=== PATIENT | female | born 1975 | race Hispanic/Latino ===

== ENCOUNTER 2018-03-13 20:23 | Emergency (ER) | payer BC ==
--- NOTE | 2018-03-13 23:13 | EDPHYS ---
Physician Documentation [facility] Name: Michelle Munguia Age: 42 yrs Sex: Female : 1975 Arrival Date: 03/13/2018 Time: 20:24 Bed 13 Private MD: Sanya Little ED Physician Gregory Oh HPI: 03/13 20:40 This 42 yrs old Female presents to ER via Ambulatory with complaints of Right pm1 Hand Pain. 20:40 The patient or guardian reports pain, swelling. The complaints affect the right hand. pm1 Context: The problem was sustained at home, resulted from a direct blow, Wall. Onset: The symptoms/episode began/occurred 2 day(s) ago. Modifying factors: The symptoms are alleviated by nothing, the symptoms are aggravated by movement. Associated signs and symptoms: Pertinent negatives: fever, numbness distally, tingling distally. Severity of symptoms: in the emergency department the symptoms are actually worse. The patient has not experienced similar symptoms in the past. Patient was in a [place] putting her shirt on for work. When she quickly put her shirt on with the right arm she accidentally slapped the wall with the back of her right hand. 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 - Social history:: Smoking status: Patient/guardian denies using tobacco. - Ebola Screening: : No symptoms or risks identified at this time. ROS: 20:40 Constitutional: Negative for fever, chills, and weight loss, Eyes: Negative for injury, pm1 pain, redness, and discharge, ENT: Negative for injury, pain, and discharge, Neck: Negative for injury, pain, and swelling, Cardiovascular: Negative for chest pain, palpitations, and edema, Respiratory: Negative for shortness of breath, cough, wheezing, and pleuritic chest pain, Abdomen/GI: Negative for abdominal pain, nausea, vomiting, diarrhea, and constipation, Back: Negative for injury and pain, : Negative for injury, bleeding, discharge, and swelling. 20:40 Skin: Negative for injury, rash, and discoloration, Neuro: Negative for headache, weakness, numbness, tingling, and seizure. 20:40 MS/extremity: Positive for tenderness, of the dorsum of right hand, Negative for decreased range of motion, deformity. Exam: 20:40 Constitutional: This is a well developed, well nourished patient who is awake, alert, pm1 and in no acute distress. Head/Face: Normocephalic, atraumatic. Chest/axilla: Normal chest wall appearance and motion. Nontender with no deformity. No lesions are appreciated. Cardiovascular: Regular rate and rhythm with a normal S1 and S2. No gallops, murmurs, or rubs. Normal PMI, no JVD. No pulse deficits. Respiratory: Lungs have equal breath sounds bilaterally, clear to auscultation and percussion. No rales, rhonchi or wheezes noted. No increased work of breathing, no retractions or nasal flaring. Back: No spinal tenderness. No costovertebral tenderness. Full range of motion. Skin: Warm, dry with normal turgor. Normal color with no rashes, no lesions, and no evidence of cellulitis. 20:40 Musculoskeletal/extremity: Extremities: grossly normal except: noted in the dorsum of right hand: tenderness, ROM: intact in all extremities, Circulation is intact in all extremities. Sensation intact. symmetrical bumps on right and left hand. Possible ganglion cyst contusion on right hand. 20:40 Neuro: Orientation: is normal, Motor: is normal, moves all fours. Vital Signs: 20:33 BP 126 / 89; Pulse 79; Resp 20; Temp 98.5; Pulse Ox 99% on R/A; Weight 58.97 kg; Height aj 5 ft. 4 in. (162.56 cm); 21:55 BP 125 / 93; Pulse 70; Resp 18; Pulse Ox 99% on R/A; Pain 7/10; ea 22:30 BP 126 / 80; Pulse 72; Resp 18; Pulse Ox 98% on R/A; Pain 7/10; ea 23:45 BP 130 / 78; Pulse 70; Resp 18; Temp 97.2(O); Pulse Ox 99% ; ea 20:33 Body Mass Index 22.31 (58.97 kg, 162.56 cm) juventino MDM: 20:40 Patient medically screened. pm1 23:11 Data reviewed: vital signs. Data interpreted: Pulse oximetry: on room air is 99 %. pm1 Interpretation: normal. Counseling: I had a detailed discussion with the patient and/or guardian regarding: the historical points, exam findings, and any diagnostic results supporting the discharge/admit diagnosis, radiology results, to return to the emergency department if symptoms worsen or persist or if there are any questions or concerns that arise at home. 03/13 20:40 Order name: Hand Right 3 View XRAY; Complete Time: 15:14 pm1 Administered Medications: 23:41 Drug: traMADol 50 mg Route: PO; ea 23:56 Follow up: Response: No adverse reaction; Pain is decreased ea Disposition: 03/14 06:05 Co-signature as Attending Physician, Gregory Oh MD I agree with the assessment and tw4 plan of care. Disposition: 03/13/18 23:13 Discharged to Home. Impression: Contusion of right hand, Ganglion, right hand - possible. - Condition is Stable. - Discharge Instructions: Hand Contusion, Ganglion Cyst. - Prescriptions for Tramadol 50 mg Oral Tablet - take 1 tablet by ORAL route every 8 hours as needed; 12 tablet. - Medication Reconciliation Form, Thank You Letter, Prescription Opioid Use, Work release form form. - Follow up: Emergency Department; When: As needed; Reason: Worsening of condition. Follow up: Private Physician; When: 2 - 3 days; Reason: Recheck today's complaints, Continuance of care, Re-evaluation by your physician. - Problem is new. - Symptoms have improved. - Notes: Take ibuprofen or tylenol as needed for pain Signatures: Dispatcher [employer] EDMS Orly Ramirez RN RN aj Marinas, Patrick, NP SOUND ENGINEERING TECHNICIAN pm1 Carisa Cunha RN RN ea Wadley, Terrence, MD MD tw4 Corrections: (The following items were deleted from the chart) 03/13 23:13 23:13 03/13/2018 23:13 Discharged to Home. Impression: Contusion of right hand; pm1 Ganglion, right hand. Condition is Stable. Forms are Medication Reconciliation Form, Thank You Letter, Antibiotic Education, Prescription Opioid Use. Follow up: Emergency Department; When: As needed; Reason: Worsening of condition. Follow up: Private Physician; When: 2 - 3 days; Reason: Recheck today's complaints, Continuance of care, Re-evaluation by your physician. Problem is new. Symptoms have improved. pm1 / 00:14 03/13 23:13 03/13/2018 23:13 Discharged to Home. Impression: Contusion of right hand; ea Ganglion, right hand - possible. Condition is Stable. Forms are Medication Reconciliation Form, Thank You Letter, Antibiotic Education, Prescription Opioid Use. Follow up: Emergency Department; When: As needed; Reason: Worsening of condition. Follow up: Private Physician; When: 2 - 3 days; Reason: Recheck today's complaints, Continuance of care, Re-evaluation by your physician. Problem is new. Symptoms have improved. pm1
--- NOTE | 2018-03-13 23:13 | ER ---
Nurse's Notes [facility] Name: Michelle Munguia Age: 42 yrs Sex: Female : 1975 Arrival Date: 03/13/2018 Time: 20:24 Bed 13 Private MD: Sanya Little Diagnosis: Contusion of right hand;Ganglion, right hand-possible Presentation: 03/13 20:32 Presenting complaint: Patient states: Right hand pain since "banging it" on a wall last aj night. No swelling or bruising noted to hand at this time. Transition of care: patient was not received from another setting of care. Onset of symptoms was March 13, 2018. Risk Assessment: Do you want to hurt yourself or someone else? Patient reports no desire to harm self or others. Care prior to arrival: None. 20:32 Method Of Arrival: Ambulatory aj 20:32 Acuity: XAVIER 4 aj 20:40 Initial Sepsis Screen: Does the patient meet any 2 criteria? No. Patient's initial ea sepsis screen is negative. Does the patient have a suspected source of infection? No. Patient's initial sepsis screen is negative. Triage Assessment: 20:33 General: Appears in no apparent distress. comfortable, Behavior is calm, cooperative, aj appropriate for age. Pain: Complains of pain in right hand. Neuro: Level of Consciousness is awake, alert, obeys commands, Oriented to person, place, time, situation, Appropriate for age. Respiratory: Airway is patent Respiratory effort is even, unlabored, Respiratory pattern is regular, symmetrical. Derm: Skin is intact, is healthy with good turgor, Skin is pink, warm \\T\\ dry. normal. Musculoskeletal: Reports pain in right hand. 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 - Social history:: Smoking status: Patient/guardian denies using tobacco. - Ebola Screening: : No symptoms or risks identified at this time. Screenin:53 Abuse screen: Denies threats or abuse. Nutritional screening: No deficits noted. ea Tuberculosis screening: No symptoms or risk factors identified. Fall Risk None identified. Assessment: 20:40 General: Appears uncomfortable, Behavior is calm, cooperative, appropriate for age. ea Pain: Complains of pain in right hand Pain currently is 7 out of 10 on a pain scale. Quality of pain is described as aching. Neuro: Level of Consciousness is awake, alert, obeys commands, Oriented to person, place, time, situation. Cardiovascular: Patient's skin is warm and dry. Respiratory: Airway is patent Respiratory effort is even, unlabored, Respiratory pattern is regular, symmetrical. GI: No signs and/or symptoms were reported involving the gastrointestinal system. : No signs and/or symptoms were reported regarding the genitourinary system. EENT: No signs and/or symptoms were reported regarding the EENT system. Derm: Skin is pink, warm \\T\\ dry. Musculoskeletal: Swelling present in dorsal aspect of proximal phalanx of right thumb and Right first web space. 21:50 Reassessment: Patient and/or family updated on plan of care and expected duration. Pain ea level reassessed. Patient is alert, oriented x 3, equal unlabored respirations, skin warm/dry/pink. 22:41 Reassessment: Patient and/or family updated on plan of care and expected duration. Pain ea level reassessed. Patient is alert, oriented x 3, equal unlabored respirations, skin warm/dry/pink. 23:42 Reassessment: Patient and/or family updated on plan of care and expected duration. Pain ea level reassessed. Patient is alert, oriented x 3, equal unlabored respirations, skin warm/dry/pink. c/o pain, provider notified, order obtained, medication administered, pt tolerated well. 03/14 00:03 Reassessment: Patient and/or family updated on plan of care and expected duration. Pain ea level reassessed. Patient is alert, oriented x 3, equal unlabored respirations, skin warm/dry/pink. Patient states symptoms have improved. Vital Signs: 03/13 20:33 BP 126 / 89; Pulse 79; Resp 20; Temp 98.5; Pulse Ox 99% on R/A; Weight 58.97 kg; Height aj 5 ft. 4 in. (162.56 cm); 21:55 BP 125 / 93; Pulse 70; Resp 18; Pulse Ox 99% on R/A; Pain 7/10; ea 22:30 BP 126 / 80; Pulse 72; Resp 18; Pulse Ox 98% on R/A; Pain 7/10; ea 23:45 BP 130 / 78; Pulse 70; Resp 18; Temp 97.2(O); Pulse Ox 99% ; ea 20:33 Body Mass Index 22.31 (58.97 kg, 162.56 cm) ED Course: 20:24 Patient arrived in ED. ds1 20:28 Sanya Little MD is Private Physician. ds1 20:33 Triage completed. aj 20:33 Arm band placed on right wrist. Patient placed in an exam room. aj 20:36 Ishmael Mueller NP is PHCP. pm1 20:36 Gregory Oh MD is Attending Physician. pm1 20:40 Patient has correct armband on for positive identification. Bed in low position. Call ea light in reach. Side rails up X2. 20:44 Edith Hedrick RN is Primary Nurse. rk2 21:08 X-ray completed. Portable x-ray completed in exam room. Patient tolerated procedure bb2 well. 21:09 Hand Right 3 View XRAY In Process Unspecified. EDMS 21:18 Carisa Cunha RN is Primary Nurse. ea 23:43 No provider procedures requiring assistance completed. Patient did not have IV access ea during this emergency room visit. Administered Medications: 23:41 Drug: traMADol 50 mg Route: PO; ea 23:56 Follow up: Response: No adverse reaction; Pain is decreased ea Outcome: 23:13 Discharge ordered by MD. pm1 23:57 Condition: improved ea 23:57 Discharge instructions given to patient, Instructed on discharge instructions, follow up and referral plans. 23:57 Demonstrated understanding of instructions, follow-up care. 03/14 00:14 Patient left the ED. ea Signatures: Dispatcher [employer] EDMS Orly Ramirez, Summer Davis RN ds1 Ishmael Mueller NP AUTOMATION SPECIALIST pm1 Carisa Cunha RN RN ea Bock, Brittany bb2 Edith Hedrick RN RN rk2
[2018-03-13] MEDS ORDERED: TRAMADOL HCL 50 MG TAB ONE (23:40)
[2018-03-14 00:31] VITALS: BP 130/78; TEMP 97.2; O2SAT 99
--- NOTE | 2018-03-14 08:10 | RAD REPORT ---
EXAM DESCRIPTION: RAD - Hand Right 3 View - 03/13/2018 9:09 pm CLINICAL HISTORY: Blunt force trauma right hand, right hand pain COMPARISON: January 2015 exam FINDINGS: The with There is no dislocation or periosteal reaction noted. No foreign body or signifi cant soft tissue abnormality. No significant change from comparison IMPRESSION: Negative right hand examination.
== END 2018-03-14 00:14 | disposition home or self-care (01) ==
LOC: ER 20:23
DX: S60.221A Contusion of right hand, initial encounter (principal); W22.09XA Striking against other stationary object, initial encounter; Y93.89 Activity, other specified; Y92.009 Unspecified place in unspecified non-institutional (private) residence as the place of occurrence of the external cause; Z88.0 Allergy status to penicillin; Z88.5 Allergy status to narcotic agent; Z88.8 Allergy status to other drugs, medicaments and biological substances
CPT/HCPCS: 99283

== ENCOUNTER 2019-03-03 15:36 | Emergency (ER) | payer BC ==
--- OUTSIDE RECORDS SUMMARY | 2019-03-03 15:38 | XMS REPORT ---
:1975 Author Organization e[employer] Care Team Providers Name Role Phone Sanya Little Provider Role Unavailable Allergies No Known Allergies Problems Problem Type Condition Code Onset Dates Condition Status Assessment Left foot pain M79.672 Active Problem Seizures R56.9 Active Problem Seasonal allergies J30.2 Active Problem Anxiety F41.9 Active Problem Uncomplicated asthma, unspecified J45.909 Active asthma severity, unspecified whether persistent Problem History of calculus of gallbladder Z87.19 Active Problem History of kidney stones Z87.442 Active Problem Migraine with status migrainosus, G43.901 Active not intractable, unspecified migraine type Medications Medication Code Code Instructions Start End Date Status Dosage System Date ProAir [facility] [id number] 108 (90 Base) Active 2 puffs RespiClick MCG/ACT as needed Inhalation every 6 hrs Results No Known Results Summary Purpose eClinicalWorks Submission
--- OUTSIDE RECORDS SUMMARY | 2019-03-03 15:38 | XMS REPORT ---
:1975 Author Organization e[employer] Care Team Providers Name Role Phone Sanya Little Provider Role Unavailable Allergies, Adverse Reactions, Alerts Substance Reaction Event Type PCN hives Drug Allergy Demerol hives Drug Allergy Problems Problem Type Condition Code Onset Dates Condition Status Problem Seizures R56.9 Active Problem Seasonal allergies [...] End Date Status Dosage System Date ProAir [facility] 43665797502 108 (90 Base) Active 2 puffs RespiClick MCG/ACT as needed Inhalation every 6 hrs Results No Known Results Summary Purpose eClinicalWorks Submission
[2019-03-03] MEDS ORDERED: LIDOCAINE 1% W/EPI 1:100,000 MDV 50 ML VIAL ONE (16:08)
[2019-03-03] MEDS ORDERED: BUPIVACAINE 0.5% PF 10 ML VIAL ONE (16:08)
--- NOTE | 2019-03-03 16:14 | ER ---
Nurse's Notes [facility] Name: Michelle Munguia Age: 43 yrs Sex: Female : 1975 Arrival Date: 03/03/2019 Time: 15:41 Bed 5 Private MD: Diagnosis: Dental pain Presentation: 03/03 15:42 Presenting complaint: Patient states: "I have a hole in my tooth, a couple days ago a aj1 chip went up into the hole and I know it hit a nerve, and I've been having pain. It hurts so bad the pain just shoots all the way to the back of my neck". Transition of care: patient was not received from another setting of care. Onset of symptoms was March 03, 2019. Risk Assessment: Do you want to hurt yourself or someone else? Patient reports no desire to harm self or others. Initial Sepsis Screen: Does the patient meet any 2 criteria? Yes Does the patient have a suspected source of infection? No. Patient's initial sepsis screen is negative. Care prior to arrival: None. 15:42 Method Of Arrival: Ambulatory aj1 15:42 Acuity: XAVIER 4 aj1 Triage Assessment: 15:44 General: Appears in no apparent distress. uncomfortable, Behavior is calm, cooperative, aj1 appropriate for age. Pain: Complains of pain in right jaw Pain radiates to right ear and neck. EENT: Reports pain in mouth. Neuro: Level of Consciousness is awake, alert, obeys commands, Oriented to person, place, time, situation. Cardiovascular: Patient's skin is warm and dry. Respiratory: Airway is patent Respiratory effort is even, unlabored, Respiratory pattern is regular, symmetrical. 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 - Social history:: Smoking status: Patient/guardian denies using tobacco. - Ebola Screening: : Patient denies travel to an Ebola-affected area in the 21 days before illness onset. Screenin:47 Abuse screen: Denies threats or abuse. Nutritional screening: No deficits noted. tw2 Tuberculosis screening: No symptoms or risk factors identified. Fall Risk None identified. Assessment: 15:47 General: Appears in no apparent distress. Behavior is calm, cooperative, appropriate tw2 for age. Pain: Complains of pain in right jaw. Neuro: Level of Consciousness is awake, alert, obeys commands, Oriented to person, place, time, situation. Cardiovascular: Patient's skin is warm and dry. Respiratory: Airway is patent Respiratory effort is even, unlabored, Respiratory pattern is regular, symmetrical. GI: No signs and/or symptoms were reported involving the gastrointestinal system. : No signs and/or symptoms were reported regarding the genitourinary system. EENT: No signs and/or symptoms were reported regarding the EENT system. Derm: No signs and/or symptoms reported regarding the dermatologic system. Musculoskeletal: Range of motion: intact in all extremities. Vital Signs: 15:44 BP 125 / 93; Pulse 74; Resp 18; Temp 98.2(TE); Pulse Ox 100% on R/A; Height 5 ft. 4 in. aj1 (162.56 cm) (R); Pain 10/10; ED Course: 15:41 Patient arrived in ED. mr 15:41 Arben Swain MD is Attending Physician. ps1 15:43 Triage completed. aj1 15:46 Isabelle Minor, JABIER is Primary Nurse. tw2 15:46 Arm band placed on. tw2 15:47 Bed in low position. Call light in reach. tw2 16:18 No provider procedures requiring assistance completed. Patient did not have IV access sg during this emergency room visit. Administered Medications: 16:15 Drug: Lidocaine-Epinephrine -1%: (1:100,000) 20 ml {Note: via Dr. Swain.} Volume: 20 tw2 ml; Route: Infiltration; 16:16 Drug: Bupivacaine (0.5 %) 10 ml {Note: via Dr. Swain.} Volume: 10 ml; Route: tw2 Infiltration; Outcome: 16:13 Discharge ordered by . ps1 16:18 Discharged to home ambulatory. sg 16:18 Condition: good 16:18 Discharge instructions given to patient, Instructed on discharge instructions, follow up and referral plans. medication usage, safety practices, Demonstrated understanding of instructions, follow-up care, medications, Prescriptions given X 4. 16:23 Patient left the ED. sg Signatures: Danay Tello RN RN aj1 Rajat Bear RN RN sg Jessica Olivas mr Iván, JABIER Walton RN tw2 Arben Swain MD MD ps1
--- NOTE | 2019-03-03 16:14 | EDPHYS ---
Physician Documentation [facility] Name: Michelle Munguia Age: 43 yrs Sex: Female : 1975 Arrival Date: 03/03/2019 Time: 15:41 Bed 5 Private MD: ED Physician Arben Swain HPI: 03/03 16:08 This 43 yrs old Female presents to ER via Ambulatory with complaints of ps1 Toothache. 16:08 The patient presents with pain. The problem is located in the upper right second ps1 bicuspid, upper right first bicuspid and upper right cuspid. patient states that she may have a loose filling now is in intolerable pain. Cannot get into the dentist until Saturday. No fever or abscess. . 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 - Social history:: Smoking status: Patient/guardian denies using tobacco. - Ebola Screening: : Patient denies travel to an Ebola-affected area in the 21 days before illness onset. ROS: 16:08 Constitutional: Negative for fever, chills, and weight loss, Eyes: Negative for injury, ps1 pain, redness, and discharge, Cardiovascular: Negative for chest pain, palpitations, and edema, Respiratory: Negative for shortness of breath, cough, wheezing, and pleuritic chest pain, Abdomen/GI: Negative for abdominal pain, nausea, vomiting, diarrhea, and constipation, MS/Extremity: Negative for injury and deformity, Skin: Negative for injury, rash, and discoloration, Neuro: Negative for headache, weakness, numbness, tingling, and seizure. 16:08 ENT: Positive for dental pain. Exam: 16:08 Constitutional: This is a well developed, well nourished patient who is awake, alert, ps1 and in no acute distress. Head/Face: Normocephalic, atraumatic. Eyes: Pupils equal round and reactive to light, extra-ocular motions intact. Lids and lashes normal. Conjunctiva and sclera are non-icteric and not injected. Cardiovascular: Regular rate and rhythm. No gallops, murmurs, or rubs. Normal PMI, no JVD. No pulse deficits. Respiratory: Lungs have equal breath sounds bilaterally, clear to auscultation and percussion. No rales, rhonchi or wheezes noted. No increased work of breathing, no retractions or nasal flaring. Abdomen/GI: Soft, non-tender, with normal bowel sounds. No distension or tympany. No guarding or rebound. No evidence of tenderness throughout. MS/ Extremity: Pulses equal, no cyanosis. Neurovascular intact. Full, normal range of motion. Neuro: Awake and alert, GCS 15, oriented to person, place, time, and situation. Cranial nerves II-XII grossly intact. Sensory grossly intact. 16:08 ENT: Dental exam: dental caries, pain, that is severe, specifically in the upper right cuspid and upper right first bicuspid and upper right second bicuspid. Vital Signs: 15:44 BP 125 / 93; Pulse 74; Resp 18; Temp 98.2(TE); Pulse Ox 100% on R/A; Height 5 ft. 4 in. aj1 (162.56 cm) (R); Pain 10/10; Procedures: 16:08 Nerve block: (dental) of right superior alveolar. Medication: Lidocaine 1% with ps1 epinephrine, Marcaine 0.5%, Amount: 4 mls were injected, Effect: the patient has resolution of the pain, Performed by Arben Swain MD Patient tolerated well. MDM: 16:08 Data reviewed: vital signs, nurses notes, and as a result, I will discharge patient. ps1 Counseling: I had a detailed discussion with the patient and/or guardian regarding: the historical points, exam findings, and any diagnostic results supporting the discharge/admit diagnosis, the need for outpatient follow up, a dentist. ED course: pain improved after nerve block. Home with chlorhexadine gluconate, medrol, anaprox,cavit, clindamycin. 16:13 Patient medically screened. ps1 Administered Medications: 16:15 Drug: Lidocaine-Epinephrine -1%: (1:100,000) 20 ml {Note: via Dr. Swain.} Volume: 20 tw2 ml; Route: Infiltration; 16:16 Drug: Bupivacaine (0.5 %) 10 ml {Note: via Dr. Swain.} Volume: 10 ml; Route: tw2 Infiltration; Disposition: 03/03/19 16:13 Discharged to Home. Impression: Dental pain. - Condition is Stable. - Discharge Instructions: Dental Pain. - Prescriptions for chlorhexidine gluconate 0.12 % Mucous Membrane mouthwash - place 15 milliliter by MUCOUS MEMBRANE route 2 times per day after brushing teeth, swish in mouth for 30 seconds then spit out; 1 bottle. Anaprox DS 550 mg Oral Tablet - take 1 tablet by ORAL route every 12 hours As needed; 20 tablet. Clindamycin HCl 300 mg Oral Capsule - take 1 capsule by ORAL route every 6 hours for 10 days; 40 capsule. Medrol (Siddhartha) 4 mg Oral Tablets, Dose Pack - take 1 tablet by ORAL route as directed - follow package instructions; 1 packet. - Work release form, Medication Reconciliation Form, Thank You Letter, Antibiotic Education, Prescription Opioid Use form. - Follow up: Private Physician; When: As needed; Reason: Recheck today's complaints, Continuance of care, Re-evaluation by your physician. Follow up: Emergency Department; When: As needed; Reason: Fever > 102 F, Worsening of condition. - Problem is an acute exacerbation. - Symptoms have improved. Signatures: Dnaay Tello RN RN aj1 Rajat Bear RN RN sg Isabelle Minor RN RN tw2 Arben Swain MD MD ps1 Corrections: (The following items were deleted from the chart) 16:23 16:13 03/03/2019 16:13 Discharged to Home. Impression: Dental pain. Condition is sg Stable. Forms are Work release form, Medication Reconciliation Form, Thank You Letter, Antibiotic Education, Prescription Opioid Use. Follow up: Private Physician; When: As needed; Reason: Recheck today's complaints, Continuance of care, Re-evaluation by your physician. Follow up: Emergency Department; When: As needed; Reason: Fever > 102 F, Worsening of condition. Problem is an acute exacerbation. Symptoms have improved. ps1
[2019-03-03 16:38] VITALS: BP 125/93; TEMP 98.2; O2SAT 100
== END 2019-03-03 16:23 | disposition home or self-care (01) ==
LOC: ER 15:36
DX: K08.89 Other specified disorders of teeth and supporting structures (principal); Z88.0 Allergy status to penicillin; Z88.6 Allergy status to analgesic agent; Z88.8 Allergy status to other drugs, medicaments and biological substances
CPT/HCPCS: 99283

== ENCOUNTER 2019-05-02 21:51 | Emergency (ER) | payer BC ==
--- OUTSIDE RECORDS SUMMARY | 2019-05-02 21:54 | XMS REPORT ---
[...] Dosage System Date ProAir [facility] [id number] 108 (90 Base) Active 2 puffs RespiClick MCG/ACT as needed Inhalation every 6 hrs Results No Known Results Summary Purpose eClinicalWorks Submission
--- OUTSIDE RECORDS SUMMARY | 2019-05-02 21:54 | XMS REPORT ---
[...] End Date Status Dosage System Date ProAir [facility] [id number] 108 (90 Base) Active 2 puffs RespiClick MCG/ACT as needed Inhalation every 6 hrs Results No Known Results Summary Purpose eClinicalWorks Submission
[2019-05-02] MEDS ORDERED: HYDROCODONE/APAP 7.5/325 MG TAB ONE (23:38)
[2019-05-02] MEDS ORDERED: KETOROLAC 30 MG/ML INJ ONE (23:38)
--- NOTE | 2019-05-03 00:57 | ER ---
Nurse's Notes [facility] Name: Michelle Munguia Age: 43 yrs Sex: Female : 1975 Arrival Date: 05/02/2019 Time: 21:52 Bed 24 Private MD: Diagnosis: Low back pain Presentation: 05/02 22:06 Presenting complaint: Patient states: she fell in the bathroom last night injuring her bb back she is having back pain in mid-lower back radiating to her left abdomen. Transition of care: patient was not received from another setting of care. Onset of symptoms was May 01, 2019. Risk Assessment: Do you want to hurt yourself or someone else? Patient reports no desire to harm self or others. Initial Sepsis Screen: Does the patient meet any 2 criteria? No. Patient's initial sepsis screen is negative. Does the patient have a suspected source of infection? No. Patient's initial sepsis screen is negative. Care prior to arrival: None. 22:06 Method Of Arrival: Ambulatory bb 22:06 Acuity: XAVIER 3 bb Triage Assessment: 05/03 01:10 General: Behavior is calm, cooperative. 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 - Social history:: Smoking status: Patient/guardian denies using tobacco. - Ebola Screening: : No symptoms or risks identified at this time. Screenin:12 Abuse screen: Denies threats or abuse. Denies injuries from another. Nutritional mg2 screening: No deficits noted. Tuberculosis screening: No symptoms or risk factors identified. Fall Risk None identified. Assessment: 22:11 General: Appears uncomfortable. Pain: Complains of pain in back. Neuro: Level of mg2 Consciousness is awake, alert, obeys commands, Oriented to person, place, time, situation. Cardiovascular: Capillary refill. Respiratory: Airway is patent Respiratory effort is even, unlabored, Respiratory pattern is regular, symmetrical. GI: No signs and/or symptoms were reported involving the gastrointestinal system. : No signs and/or symptoms were reported regarding the genitourinary system. EENT: No signs and/or symptoms were reported regarding the EENT system. Derm: Skin is intact, is healthy with good turgor, Skin is pink, warm \\T\\ dry. normal. Musculoskeletal: Circulation, motion, and sensation intact. Capillary refill < 3 seconds. 05/03 01:10 Reassessment: Patient states feeling better. mg2 Vital Signs: 05/02 22:08 BP 114 / 100; Pulse 96; Resp 18 S; Temp 98.3; Pulse Ox 100% on R/A; Weight 55.3 kg (R); bb Height 5 ft. 4 in. (162.56 cm) (R); Pain 10/10; 22:54 BP 127 / 88; Pulse 83; Resp 18; Temp 98; Pulse Ox 100% on R/A; mg2 05/03 00:21 BP 109 / 80; Pulse 91; Resp 18; Pulse Ox 100% on R/A; mg2 05/02 22:08 Body Mass Index 20.93 (55.30 kg, 162.56 cm) bb ED Course: 05/02 21:52 Patient arrived in ED. am2 22:08 Triage completed. bb 22:08 Arm band placed on Patient placed in an exam room, on a stretcher, on pulse oximetry. bb Family accompanied patient. 22:11 Brad Connolly, JABIER is Primary Nurse. mg2 22:12 Patient has correct armband on for positive identification. mg2 22:43 Benji Rogers PA is PHCP. jr8 22:43 Gregory Oh MD is Attending Physician. jr8 22:54 No provider procedures requiring assistance completed. Patient did not have IV access mg2 during this emergency room visit. 05/03 00:14 X-ray completed. Patient tolerated procedure well. kw 02:11 Lumbar Spine (3 Views) XRAY In Process Unspecified. EDMS Administered Medications: 05/02 23:26 Drug: TORadol - Ketorolac 15 mg Route: IM; Site: left deltoid; mg2 05/03 01:09 Follow up: Response: No adverse reaction; Marked relief of symptoms mg2 05/02 23:26 Drug: [place] (7.5 mg-325 mg) 1 tabs Route: PO; mg2 05/03 01:09 Follow up: Response: No adverse reaction; Marked relief of symptoms mg2 Outcome: 00:56 Discharge ordered by MD. stoner 01:10 Discharged to home ambulatory, with family. mg2 01:10 Condition: stable 01:10 Discharge instructions given to patient, family, Instructed on discharge instructions, follow up and referral plans. medication usage, Demonstrated understanding of instructions, follow-up care, medications, Prescriptions given X 2. 01:10 Patient left the ED. mg2 Signatures: Dispatcher [employer] EDMS Ara Arguello RN RN Rosa Etienne Josh, PA PA jr8 Orly Coronado Michele, RN RN mg2
--- NOTE | 2019-05-03 00:58 | EDPHYS ---
Physician Documentation [facility] Name: Michelle Munguia Age: 43 yrs Sex: Female : 1975 Arrival Date: 05/02/2019 Time: 21:52 Bed 24 Private MD: ED Physician Gregory Oh HPI: 05/02 23:19 This 43 yrs old Female presents to ER via Ambulatory with complaints of Back jr8 Pain. 23:19 The patient presents with pain that is acute. The symptoms are located in the low back, jr8 L1 and L2. Onset: The symptoms/episode began/occurred acutely, 24 hour(s) ago. The pain radiates to the right leg and left leg. Associated signs and symptoms: Pertinent negatives: dysuria, numbness, tingling. The problem was sustained during a fall, while walking. Modifying factors: The patient symptoms are alleviated by nothing, the patient symptoms are aggravated by any movement. Severity of symptoms: At their worst the symptoms were moderate, in the emergency department the symptoms are unchanged. The patient has not experienced similar symptoms in the past. The patient has not recently seen a physician. Reports slip/fall while getting out of shower last night 24 hours ago, lower back pain radiating down both legs. 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 - Social history:: Smoking status: Patient/guardian denies using tobacco. - Ebola Screening: : No symptoms or risks identified at this time. ROS: 23:19 Constitutional: Negative for fever, chills, and weight loss, Eyes: Negative for injury, jr8 pain, redness, and discharge, ENT: Negative for injury, pain, and discharge, Neck: Negative for injury, pain, and swelling, Cardiovascular: Negative for chest pain, palpitations, and edema, Respiratory: Negative for shortness of breath, cough, wheezing, and pleuritic chest pain, Abdomen/GI: Negative for abdominal pain, nausea, vomiting, diarrhea, and constipation, MS/Extremity: Negative for injury and deformity, Skin: Negative for injury, rash, and discoloration, Neuro: Negative for headache, weakness, numbness, tingling, and seizure. 23:19 Back: Positive for pain at rest, pain with movement, radiated pain, Negative for numbness/tingling to lower extremities or incontinence of bowel/bladder. Exam: 05/03 00:42 Head/Face: Normocephalic, atraumatic. Neck: Trachea midline, no thyromegaly or masses jr8 palpated, and no cervical lymphadenopathy. Supple, full range of motion without nuchal rigidity, or vertebral point tenderness. No Meningismus. Chest/axilla: Normal chest wall appearance and motion. Nontender with no deformity. No lesions are appreciated. Cardiovascular: Regular rate and rhythm with a normal S1 and S2. No gallops, murmurs, or rubs. Normal PMI, no JVD. No pulse deficits. Respiratory: Lungs have equal breath sounds bilaterally, clear to auscultation and percussion. No rales, rhonchi or wheezes noted. No increased work of breathing, no retractions or nasal flaring. Abdomen/GI: Soft, non-tender, with normal bowel sounds. No distension or tympany. No guarding or rebound. No evidence of tenderness throughout. Skin: Warm, dry with normal turgor. Normal color with no rashes, no lesions, and no evidence of cellulitis. MS/ Extremity: Pulses equal, no cyanosis. Neurovascular intact. Full, normal range of motion. Neuro: Awake and alert, GCS 15, oriented to person, place, time, and situation. Cranial nerves II-XII grossly intact. Motor strength 5/5 in all extremities. Sensory grossly intact. Cerebellar exam normal. Normal gait. Constitutional: The patient appears alert, awake, uncomfortable. Back: pain, that is moderate, of the lumbar area, ROM is painful, with all movement, normal spinal alignment noted, no deformity, CVA tenderness, is absent, vertebral tenderness, is appreciated at L1 and L2. Vital Signs: 05/02 22:08 BP 114 / 100; Pulse 96; Resp 18 S; Temp 98.3; Pulse Ox 100% on R/A; Weight 55.3 kg (R); bb Height 5 ft. 4 in. (162.56 cm) (R); Pain 10/10; 22:54 BP 127 / 88; Pulse 83; Resp 18; Temp 98; Pulse Ox 100% on R/A; mg2 05/03 00:21 BP 109 / 80; Pulse 91; Resp 18; Pulse Ox 100% on R/A; mg2 05/02 22:08 Body Mass Index 20.93 (55.30 kg, 162.56 cm) bb MDM: 05/02 22:59 Patient medically screened. jr8 05/03 00:56 Differential diagnosis: Fracture Osteoarthritis ruptured disc, spinal injury, sprain, jr8 vertebral fracture. Data reviewed: vital signs, nurses notes, radiologic studies, plain films. Data interpreted: Pulse oximetry: on room air is 99 %. Interpretation: normal. Counseling: I had a detailed discussion with the patient and/or guardian regarding: the historical points, exam findings, and any diagnostic results supporting the discharge/admit diagnosis, radiology results, to return to the emergency department if symptoms worsen or persist or if there are any questions or concerns that arise at home. Response to treatment: the patient's symptoms have markedly improved after treatment, and as a result, I will discharge patient. ED course: Xrays grossly negative, discharged with medications. 05/02 23:19 Order name: Lumbar Spine (3 Views) XRAY jr8 Administered Medications: 05/02 23:26 Drug: TORadol - Ketorolac 15 mg Route: IM; Site: left deltoid; mg2 05/03 01:09 Follow up: Response: No adverse reaction; Marked relief of symptoms mg2 05/02 23:26 Drug: [place] (7.5 mg-325 mg) 1 tabs Route: PO; mg2 05/03 01:09 Follow up: Response: No adverse reaction; Marked relief of symptoms mg2 Disposition: 06:39 Co-signature as Attending Physician, Gregory Oh MD I agree with the assessment and tw4 plan of care. Disposition: 05/03/19 00:56 Discharged to Home. Impression: Low back pain. - Condition is Stable. - Discharge Instructions: Back Pain, Adult, Musculoskeletal Pain. - Prescriptions for Ibuprofen 800 mg Oral Tablet - take 1 tablet by ORAL route every 12 hours As needed take with food; 20 tablet. Robaxin 500 mg Oral Tablet - take 2 tablet by ORAL route every 6 hours As needed; 40 tablet. - Medication Reconciliation Form, Thank You Letter, Antibiotic Education, Prescription Opioid Use, Work release form form. - Follow up: Private Physician; When: 2 - 3 days; Reason: Recheck today's complaints, Continuance of care, Re-evaluation by your physician. - Problem is new. - Symptoms have improved. Signatures: Dispatcher [employer] EDAra Marquez, RN RN Benji Hernandez PA PA jr8 Gregory Oh MD MD tw4 Brad Connolly RN RN mg2 Corrections: (The following items were deleted from the chart) 01:10 00:56 05/03/2019 00:56 Discharged to Home. Impression: Low back pain. Condition is mg2 Stable. Forms are Medication Reconciliation Form, Thank You Letter, Antibiotic Education, Prescription Opioid Use. Follow up: Private Physician; When: 2 - 3 days; Reason: Recheck today's complaints, Continuance of care, Re-evaluation by your physician. Problem is new. Symptoms have improved. jr8
[2019-05-03 02:39] VITALS: O2SAT 100
[2019-05-03 02:41] VITALS: TEMP 98
[2019-05-03 02:42] VITALS: BP 109/80
--- NOTE | 2019-05-03 12:49 | RAD REPORT ---
EXAM DESCRIPTION: RAD - Lumbar Spine 3 Views - 05/03/2019 12:15 am CLINICAL HISTORY: LOWER BACK PAIN Radiculopathy COMPARISON: Lumbar Spine 3 Views dated 02/04/2016; LUMBAR SPINE 3 VIEWS dated 10/15/2011 FINDINGS: Vertebral body heights appear maintained. No compression fracture noted. Disc spaces are m aintained. No spondylolysis or spondylolisthesis. IMPRESSION: Negative study.
== END 2019-05-03 01:10 | disposition home or self-care (01) ==
LOC: ER 21:51
DX: M54.5 Low back pain (principal); J45.909 Unspecified asthma, uncomplicated; Z88.5 Allergy status to narcotic agent; Z88.0 Allergy status to penicillin; Z88.8 Allergy status to other drugs, medicaments and biological substances
CPT/HCPCS: 72100; 96372; 99284

== ENCOUNTER 2019-06-21 17:48 | Emergency (ER) | payer BC ==
--- OUTSIDE RECORDS SUMMARY | 2019-06-21 17:51 | XMS REPORT ---
[...] End Date Status Dosage System Date ProAir [facility] [id number] 108 (90 Base) Active 2 puffs RespiClick MCG/ACT as needed Inhalation every 6 hrs Results No Known Results Summary Purpose eClinicalWorks Submission
--- OUTSIDE RECORDS SUMMARY | 2019-06-21 17:51 | XMS REPORT ---
[...] End Date Status Dosage System Date ProAir [facility] [id number] 108 (90 Base) Active 2 puffs RespiClick MCG/ACT as needed Inhalation every 6 hrs Results No Known Results Summary Purpose eClinicalWorks Submission
[2019-06-21 20:17] LABS: Urine Blood 2+ (NEG); Urine Glucose NEGATIVE (NEG); Urine Protein NEGATIVE (NEG)
[2019-06-21 20:55] LABS: Urine Bacteria >50 /HPF (<20); Urine Culture Reflex Order REFLEXED; Urine RBC <5 /HPF (NONE SEEN)
--- NOTE | 2019-06-21 21:14 | EDPHYS ---
Physician Documentation [facility] Name: Michelle Munguia Age: 44 yrs Sex: Female : 1975 Arrival Date: 06/21/2019 Time: 17:52 Bed 24 Private MD: ED Physician Jonas Tuttle HPI: 06/21 21:10 This 44 yrs old Female presents to ER via Ambulatory with complaints of gs Nausea/Vomiting. 21:10 The patient presents to the emergency department with nausea, vomiting. Onset: The gs symptoms/episode began/occurred yesterday. Possible causes: unknown. The symptoms are aggravated by heat. Associated signs and symptoms: Pertinent negatives: constipation, diarrhea. Severity of symptoms: At their worst the symptoms were moderate in the emergency department the symptoms are unchanged. The patient has experienced similar episodes in the past, a few times. says she has been working in heat and has been over heated. 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 - Social history:: Smoking status: Patient/guardian denies using tobacco. - Ebola Screening: : Patient denies travel to an Ebola-affected area in the 21 days before illness onset. ROS: 21:10 All other systems are negative. gs Exam: 21:10 Head/Face: Normocephalic, atraumatic. Eyes: Pupils equal round and reactive to light, gs extra-ocular motions intact. Lids and lashes normal. Conjunctiva and sclera are non-icteric and not injected. Cornea within normal limits. Periorbital areas with no swelling, redness, or edema. ENT: Nares patent. No nasal discharge, no septal abnormalities noted. Tympanic membranes are normal and external auditory canals are clear. Oropharynx with no redness, swelling, or masses, exudates, or evidence of obstruction, uvula midline. Mucous membranes moist. Neck: Trachea midline, no thyromegaly or masses palpated, and no cervical lymphadenopathy. Supple, full range of motion without nuchal rigidity, or vertebral point tenderness. No Meningismus. Chest/axilla: Normal chest wall appearance and motion. Nontender with no deformity. No lesions are appreciated. Cardiovascular: Regular rate and rhythm with a normal S1 and S2. No gallops, murmurs, or rubs. Normal PMI, no JVD. No pulse deficits. Respiratory: Lungs have equal breath sounds bilaterally, clear to auscultation and percussion. No rales, rhonchi or wheezes noted. No increased work of breathing, no retractions or nasal flaring. Abdomen/GI: Soft, non-tender, with normal bowel sounds. No distension or tympany. No guarding or rebound. No evidence of tenderness throughout. Back: No spinal tenderness. No costovertebral tenderness. Full range of motion. Skin: Warm, dry with normal turgor. Normal color with no rashes, no lesions, and no evidence of cellulitis. MS/ Extremity: Pulses equal, no cyanosis. Neurovascular intact. Full, normal range of motion. Neuro: Awake and alert, GCS 15, oriented to person, place, time, and situation. Cranial nerves II-XII grossly intact. Motor strength 5/5 in all extremities. Sensory grossly intact. Cerebellar exam normal. Normal gait. 21:10 Constitutional: The patient appears alert, awake. Vital Signs: 18:26 BP 137 / 73; Pulse 85; Resp 18; Temp 99.2; Pulse Ox 100% on R/A; Weight 54.88 kg (R); aj1 Height 5 ft. 4 in. (162.56 cm) (R); Pain 8/10; 21:26 BP 127 / 76; Pulse 79; Resp 16; Temp 99.7; Pulse Ox 100% ; rv 18:26 Body Mass Index 20.77 (54.88 kg, 162.56 cm) aj1 MDM: 21:09 Patient medically screened. 21:10 Data reviewed: vital signs, nurses notes. ED course: says doesn't have time for labs gs ivf, will come back tomorrow if need be i offered nausea meds and reeval tomorrow. 06/21 18:29 Order name: Flu; Complete Time: 21:10 kb 06/21 18:29 Order name: Strep; Complete Time: 21:10 kb 06/21 18:35 Order name: Urine Microscopic Only; Complete Time: 21:10 snw 06/21 20:10 Order name: Urine --Ancillary (enter results); Complete Time: 21:10 kb 06/21 20:10 Order name: Urine Dipstick--Ancillary (enter results); Complete Time: 21:10 kb 06/21 20:33 Order name: Throat Culture EDMS 06/21 18:35 Order name: Urine Dipstick-Ancillary (obtain specimen); Complete Time: 20:36 snw 06/21 20:58 Order name: Urine Culture EDMS Administered Medications: 21:18 Drug: Zofran 4 mg Route: PO; 21:27 Follow up: Response: Medication administered at discharge. rv 21:18 Drug: Pepcid 20 mg Route: PO; 21:27 Follow up: Response: Medication administered at discharge. rv Disposition: 06/21/19 21:12 Discharged to Home. Impression: Vomiting. - Condition is Stable. - Discharge Instructions: Nausea and Vomiting, Adult. - Prescriptions for Zofran 4 mg Oral Tablet - take 1 tablet by ORAL route every 12 hours As needed; 6 tablet. Pepcid 20 mg Oral Tablet - take 1 tablet by ORAL route once daily; 20 tablet. - Medication Reconciliation Form, Thank You Letter, Antibiotic Education, Prescription Opioid Use, Work release form form. - Follow up: Private Physician; When: 2 - 3 days; Reason: Re-evaluation by your physician. Signatures: Dispatcher MedEll[facility] Medical CenterDanay Mosley RN RN aj1 Yuko Spivey, YURI-Lev RIG MECHANIC-Juliet Riley Jonas Tuttle MD MD Ken Lawrence RN RN rv Corrections: (The following items were deleted from the chart) 21:27 21:12 06/21/2019 21:12 Discharged to Home. Impression: Vomiting. Condition is Stable. rv Forms are Medication Reconciliation Form, Thank You Letter, Antibiotic Education, Prescription Opioid Use. Follow up: Private Physician; When: 2 - 3 days; Reason: Re-evaluation by your physician.
--- NOTE | 2019-06-21 21:14 | ER ---
Nurse's Notes [facility] Name: Michelle Munguia Age: 44 yrs Sex: Female : 1975 Arrival Date: 06/21/2019 Time: 17:52 Bed 24 Private MD: Diagnosis: Vomiting Presentation: 06/21 18:23 Presenting complaint: Patient states: "I work at [employer], lately I have been feeling like aj1 crap. I feel over-heated and my stomach has been hurting. I'm constantly in the sun at work. My eyes are red and I feel like shit. My grandson is sick too." Reports fever of 101 at home. Transition of care: patient was not received from another setting of care. Onset of symptoms was 2018. Risk Assessment: Do you want to hurt yourself or someone else? Patient reports no desire to harm self or others. Initial Sepsis Screen: Does the patient meet any 2 criteria? No. Patient's initial sepsis screen is negative. Does the patient have a suspected source of infection? No. Patient's initial sepsis screen is negative. Care prior to arrival: None. 18:23 Method Of Arrival: Ambulatory aj1 18:23 Acuity: XAVIER 4 aj1 18:49 Acuity: XAVIER 3 ss Triage Assessment: 18:26 General: Appears in no apparent distress. comfortable, Behavior is calm, cooperative, aj1 appropriate for age. Pain: Complains of pain in abdomen Pain currently is 8 out of 10 on a pain scale. Neuro: Level of Consciousness is awake, alert, obeys commands. Cardiovascular: Patient's skin is warm and dry. Respiratory: Airway is patent Respiratory effort is even, unlabored, Respiratory pattern is regular, symmetrical. GI: Reports nausea. 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 - Social history:: Smoking status: Patient/guardian denies using tobacco. - Ebola Screening: : Patient denies travel to an Ebola-affected area in the 21 days before illness onset. Screenin:00 Abuse screen: Denies threats or abuse. Denies injuries from another. Nutritional wh screening: No deficits noted. Tuberculosis screening: No symptoms or risk factors identified. Fall Risk None identified. Assessment: 20:00 General: Appears in no apparent distress. Behavior is calm, cooperative, appropriate wh for age. Pain: Complains of pain in abdomen Pain does not radiate. Pain currently is 4 out of 10 on a pain scale. Quality of pain is described as aching. Neuro: Level of Consciousness is awake, alert, obeys commands. Cardiovascular: Heart tones S1 S2. Respiratory: Airway is patent Respiratory effort is even, unlabored, Respiratory pattern is regular, symmetrical. GI: Abdomen is flat, non-distended, Bowel sounds present X 4 quads. Abd is soft and non tender X 4 quads. Reports nausea. : No signs and/or symptoms were reported regarding the genitourinary system. EENT: No signs and/or symptoms were reported regarding the EENT system. Derm: Skin is intact, is healthy with good turgor, Skin is pink, warm \\T\\ dry. normal. Musculoskeletal: Circulation, motion, and sensation intact. 21:16 Reassessment: Patient appears in no apparent distress at this time. No changes from previously documented assessment. Patient and/or family updated on plan of care and expected duration. Pain level reassessed. Patient is alert, oriented x 3, equal unlabored respirations, skin warm/dry/pink. Vital Signs: 18:26 BP 137 / 73; Pulse 85; Resp 18; Temp 99.2; Pulse Ox 100% on R/A; Weight 54.88 kg (R); aj1 Height 5 ft. 4 in. (162.56 cm) (R); Pain 8/10; 21:26 BP 127 / 76; Pulse 79; Resp 16; Temp 99.7; Pulse Ox 100% ; rv 18:26 Body Mass Index 20.77 (54.88 kg, 162.56 cm) aj1 ED Course: 17:52 Patient arrived in ED. as 18:25 Triage completed. aj1 18:26 Arm band placed on Patient placed in waiting room, Patient notified of wait time. aj1 19:08 Jonas Tuttle MD is Attending Physician. 19:42 Juliet Camargo is Primary Nurse. 20:00 Patient has correct armband on for positive identification. Bed in low position. Call light in reach. Side rails up X 1. Pulse ox on. NIBP on. 21:17 No provider procedures requiring assistance completed. Patient did not have IV access during this emergency room visit. Administered Medications: 21:18 Drug: Zofran 4 mg Route: PO; 21:27 Follow up: Response: Medication administered at discharge. rv 21:18 Drug: Pepcid 20 mg Route: PO; 21:27 Follow up: Response: Medication administered at discharge. rv Outcome: 21:12 Discharge ordered by . 21:26 Discharged to home ambulatory. rv 21:26 Condition: good 21:26 Discharge instructions given to patient, Instructed on discharge instructions, follow up and referral plans. medication usage, Demonstrated understanding of instructions, follow-up care, medications, Prescriptions given X 2. 21:27 Patient left the ED. rv Signatures: Danay Tello RN RN aj1 Shawna Williamson Shelby, RN RN Juliet Camargo Jonas Tuttle MD MD Ken Lawrence RN RN rv
[2019-06-21] MEDS ORDERED: ONDANSETRON 4 MG (ODT) TAB ONE (21:17)
[2019-06-21] MEDS ORDERED: FAMOTIDINE 20 MG TAB ONE (21:17)
[2019-06-22 02:58] VITALS: O2SAT 100
[2019-06-22 03:00] VITALS: BP 127/76; TEMP 99.7
== END 2019-06-21 21:27 | disposition home or self-care (01) ==
LOC: ER 17:48
DX: R11.10 Vomiting, unspecified (principal); Z88.0 Allergy status to penicillin; Z88.5 Allergy status to narcotic agent; Z88.8 Allergy status to other drugs, medicaments and biological substances
CPT/HCPCS: 81003; 81015; 81025; 87070; 87077; 87081; 87086; 87088; 87186; 87804; 99283

== ENCOUNTER 2020-09-15 12:26 | Emergency (ER) | payer BC, SELFPAY ==
--- OUTSIDE RECORDS SUMMARY | 2020-09-15 12:28 | XMS REPORT | Continuity of Care Document ---
:1975 Author Organization [facility] Address [address] [place] [address] [address] [place] [address] Care Team Providers Name Role Phone Unavailable Unavailable Unavailable Problems Condition Condition Condition Status Onset Resolution Last Treating Co mments Source Name Details Category Date Date Treatment Clinician Date Seizures Seizures [facility] Season[facility] Seasonal Problem [facility] Anxiety Anxiety Problem [facility] Uncomplica Uncomplica Problem Active [facility] - asthma, asthma, [facility] unspecifie unspecifie l d asthma d asthma Outpat i severity, severity, ent unspecifie unspecifie Cl inics d whether d whether persistent persistent History of History of Problem Active [facility] calculus calculus [facility] gall[facility] History of History of Problem Active [facility] kidney kidney [facility] stones [facility] Migraine Migraine Problem [facility] status status [facility] migrainosu migrainosu l s, not s, not Outpati intractabl intractabl en t e, e, Clinics unspecifie unspecifie d migraine d migraine type type Left foot Left foot Diagnosis Active [facility] Allergies, Adverse Reactions, Alerts Allergy Allergy Status Severity Reaction(s) Onset Inactive Treating Comm ents Source Name Type Date Date Clinician PCN Adverse Active hives [facility] Demerol Adverse Active hives [facility] Medications Ordered Filled Start Stop Current Ordering Indication Dosage Frequency Signature Comments Components Source Medication Medication Date Date Medication? Clinician (SIG) Name Name ProAir ProAir Yes Sanya [address] [facility] RespiClick RespiClick [facility] Procedures This patient has no known procedures. Encounters Start End Encounter Admission Attending Care Care Encounter Source Date/Time Date/Time Type Type Clinicians Facility Department ID 2018-04-25 2018-04-25 Outpatient Saumya Hannah [id number] [facility] [address] 10:15:00 10:15:00 [facility] 2018-04-25 2018-04-25 Outpatient Saumya Hannah [id number] [facility] 09:53:00 09:53:00 [facility] Results This patient has no known results.
--- NOTE | 2020-09-15 13:55 | RAD REPORT ---
EXAM DESCRIPTION: CT - Head Brain Wo Cont - 09/15/2020 1:40 pm CLINICAL HISTORY: HEADACHEblunt force trauma to the left-sided head and face 5 days earlier COMPARISON: Facial Bones W/ Mpr dated 09/15/2020 TECHNIQUE: Axial 5 mm thick images of the head were obtained without IV contrast. All CT scans are performed using dose optimization technique as appropriate and may include automated exposure control or mA/KV adjustment according to patient size. FINDINGS: No intracranial hemorrhage, mass, edema or shift of mid-line structures. No acute infarcti on changes seen. No abnormal extra-axial fluid collections. Ventricles are normal. Mastoid air cells are clear. Orbits, sinuses and facial bones are separately detailed. No skullbase or cranial vault fracture. IMPRESSION: Negative non-contrast CT head examination. Orbits, sinuses and facial bones are separately detailed.
--- NOTE | 2020-09-15 13:57 | RAD REPORT ---
EXAM DESCRIPTION: CT - Facial Bones W/ Mpr - 09/15/2020 1:40 pm CLINICAL HISTORY: Blunt force trauma to the left face 5 days earlier COMPARISON: CT head same date TECHNIQUE: Axial 2 millimeter thick images of the facial bones were obtained with sagittal and coron al reconstruction imaging. All CT scans are performed using dose optimization technique as appropriate and may include automated exposure control or mA/KV adjustment according to patient size. FINDINGS: No facial bone fractures are identified. No globe or postseptal orbital content abnormalit y. Mastoid air cells are clear. No acute paranasal sinus finding. There is mild contusion or edema in the left periorbital soft tissues. No foreign body. IMPRESSION: Mild soft tissue contusion or edema in the left periorbital region. No facial bone fracture, acute sinus finding or acute globe/orbital content finding.
--- NOTE | 2020-09-15 14:09 | EDPHYS ---
Physician Documentation [facility] Name: Michelle Munguia Age: 45 yrs Sex: Female : 1975 Arrival Date: 09/15/2020 Time: 12:30 Bed Waiting Private MD: ED Physician Braden Aly HPI: 09/15 13:18 This 45 yrs old Female presents to ER via Ambulatory with complaints of Facial cp Injury, Facial Swelling, Headache, Eye Pain. 13:18 The patient or guardian reports injury. The complaints affect the left cheek, left eye, cp left sabianist and left zygomatic area. Context of injury: The problem was sustained at home, resulted from a direct blow, "accidently ran into wall". 13:20 Onset: The symptoms/episode began/occurred 5 day(s) ago. Associated signs and symptoms: cp Pertinent positives: headache. 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 - Social history:: Smoking status: Patient denies any tobacco usage or history of. ROS: 13:25 Constitutional: Negative for body aches, chills, fever. cp 13:25 Neck: Negative for stiffness, bony tenderness. cp 13:25 Cardiovascular: Negative for chest pain. 13:25 Respiratory: Negative for cough, shortness of breath. 13:25 Abdomen/GI: Negative for nausea, vomiting, and diarrhea. 13:25 Neuro: Positive for headache, Negative for altered mental status, loss of consciousness. 13:25 All other systems are negative. Exam: 13:30 Constitutional: The patient appears in no acute distress, alert, awake, non-toxic, well cp developed, well nourished. 13:30 Head/face: Noted is ecchymosis, that is mild, of the forehead, left cheek and left cp eye, swelling, that is mild, of the forehead, left cheek and left eye, Sinus tenderness, that is mild, is located over the left frontal sinus and left maxillary sinus. 13:30 Eyes: Pupils: equal, round, and reactive to light and accomodation, Extraocular movements: intact throughout, Conjunctiva: normal, no exudate, no injection, Lids and lashes: appear normal, bilaterally. 13:30 ENT: External ear(s): are unremarkable, Nose: is normal, Mouth: Lips: moist, Oral mucosa: moist, Posterior pharynx: is normal, airway is patent. 13:30 Neck: C-spine: vertebral tenderness, is not appreciated, crepitus, is not appreciated, ROM/movement: is normal, is supple, no nuchal rigidity. 13:30 Chest/axilla: Inspection: normal. 13:30 Cardiovascular: Rate: normal. 13:30 Respiratory: the patient does not display signs of respiratory distress, Respirations: normal, no use of accessory muscles, no retractions, labored breathing, is not present, Breath sounds: are clear throughout, no decreased breath sounds. 13:30 Abdomen/GI: Exam negative for discomfort, distension, guarding, Inspection: abdomen appears normal. 13:30 Neuro: Orientation: to person, place \\T\\ time. Mentation: is normal, Motor: moves all fours, strength is normal. Vital Signs: 12:41 BP 131 / 72; Pulse 70; Resp 15 S; Temp 98.8(TE); Pulse Ox 100% on R/A; Weight 49.9 kg ca1 (R); Height 5 ft. 4 in. (162.56 cm) (R); Pain 8/10; 14:07 BP 136 / 84; Pulse 71; Resp 15 S; Pulse Ox 100% on R/A; ca1 12:41 Body Mass Index 18.88 (49.90 kg, 162.56 cm) ca1 Rajendra Coma Score: 13:20 Eye Response: spontaneous(4). Verbal Response: oriented(5). Motor Response: obeys cp commands(6). Total: 15. 14:08 Eye Response: spontaneous(4). Verbal Response: oriented(5). Motor Response: obeys cp commands(6). Total: 15. MDM: 13:30 Differential diagnosis: Contusion of Hematoma on Intracranial bleed- Concussion. cp 14:08 Patient medically screened. cp 14:08 Data reviewed: vital signs, nurses notes, radiologic studies, plain films. Counseling: cp I had a detailed discussion with the patient and/or guardian regarding: the historical points, exam findings, and any diagnostic results supporting the discharge/admit diagnosis, radiology results, to return to the emergency department if symptoms worsen or persist or if there are any questions or concerns that arise at home. Special discussion: Based on the patient's history, exam and DX evaluation, there is no indication for emergent intervention or inpatient [place]. It is understood by the patient/guardian that if the SXs persist or worsen they need to return immediately for re-evaluation. 14:13 ED course: No active RXs for narcotic pain meds according to [place] prescription monitor cp website. 09/15 13:18 Order name: CT Head Brain wo Cont; Complete Time: 14:02 09/15 13:18 Order name: CT Facial Bones W/O Con; Complete Time: 14:02 09/15 14:03 Interpretation: Report reviewed. cp Administered Medications: No medications were administered Disposition: 14:25 Chart complete. cp 17:16 Co-signature as Attending Physician, Braden Aly MD I agree with the assessment and kdr plan of care. Disposition: 09/15/20 14:08 Discharged to Home. Impression: Contusion of unspecified part of head. - Condition is Stable. - Discharge Instructions: Contusion, Head Injury, Adult. - Prescriptions for Ibuprofen 600 mg Oral Tablet - take 1 tablet by ORAL route every 6 hours As needed take with food; 30 tablet. Tylenol- Codeine #3 300-30 mg Oral Tablet - take 2 tablets by ORAL route every 6 hours As needed; 12 tablet. - Medication Reconciliation Form, Thank You Letter, Antibiotic Education, Prescription Opioid Use form. - Follow up: Private Physician; When: 2 - 3 days; Reason: Recheck today's complaints. - Problem is new. - Symptoms have improved. Signatures: Dispatcher [employer] EDBraden Salinas MD MD kdr Chris Mercado PA PA cp Verito, Carolyn, RN RN ca1 Corrections: (The following items were deleted from the chart) 14:18 14:08 09/15/2020 14:08 Discharged to Home. Impression: Contusion of unspecified part of ca1 head. Condition is Stable. Forms are Medication Reconciliation Form, Thank You Letter, Antibiotic Education, Prescription Opioid Use. Follow up: Private Physician; When: 2 - 3 days; Reason: Recheck today's complaints. Problem is new. Symptoms have improved. cp
--- NOTE | 2020-09-15 14:09 | ER ---
Nurse's Notes [facility] Name: Michelle Munguia Age: 45 yrs Sex: Female : 1975 Arrival Date: 09/15/2020 Time: 12:30 Bed Waiting Private MD: Diagnosis: Contusion of unspecified part of head Presentation: 09/15 12:41 Chief complaint: Patient states: On Saturday hit L face corner of a wall, started with ca1 a bruise and swelling on L eye brow and just got bigger and cause bruising and swelling around L eye. Dark purple and yellow bruising around L eye. C/O pain and pressure on L eye, twitching on L eye. C/O headache on L side, dizziness. Denies N/V. Denies LOC. Coronavirus screen: Client denies travel out of the [place] in the last 14 days. At this time, the client does not indicate any symptoms associated with coronavirus-19. Ebola Screen: Patient negative for fever greater than or equal to 101.5 degrees Fahrenheit, and additional compatible Ebola Virus Disease symptoms Patient denies exposure to infectious person. Patient denies travel to an Ebola-affected area in the 21 days before illness onset. No symptoms or risks identified at this time. Initial Sepsis Screen: Does the patient meet any 2 criteria? No. Patient's initial sepsis screen is negative. Does the patient have a suspected source of infection? No. Patient's initial sepsis screen is negative. Risk Assessment: Do you want to hurt yourself or someone else? Patient reports no desire to harm self or others. Onset of symptoms was September 15, 2020. 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 - Social history:: Smoking status: Patient denies any tobacco usage or history of. Screenin:45 Abuse screen: Denies threats or abuse. Denies injuries from another. Nutritional ca1 screening: No deficits noted. Tuberculosis screening: No symptoms or risk factors identified. Fall Risk None identified. Assessment: 12:45 General: Appears in no apparent distress. comfortable, Behavior is calm, cooperative, ca1 appropriate for age. Pain: Complains of pain in face and left zygomatic area and left zoroastrianism and left eye and left cheek Pain currently is 8 out of 10 on a pain scale. Neuro: Level of Consciousness is awake, alert, obeys commands, Oriented to person, place, time, situation. EENT: Eyes Sclera/Cornea are clear in outer aspect of conjuctiva of left eye and inner aspect of conjunctiva of left eye. Derm: Skin is intact, is healthy with good turgor, Skin is pink, warm \\T\\ dry. Bruising that is dark purple, yellow, on left eye. Musculoskeletal: Circulation, motion, and sensation intact. Capillary refill < 3 seconds. 14:07 Reassessment: Patient appears in no apparent distress at this time. Patient is alert, ca1 oriented x 3, equal unlabored respirations, skin warm/dry/pink. Vital Signs: 12:41 BP 131 / 72; Pulse 70; Resp 15 S; Temp 98.8(TE); Pulse Ox 100% on R/A; Weight 49.9 kg ca1 (R); Height 5 ft. 4 in. (162.56 cm) (R); Pain 8/10; 14:07 BP 136 / 84; Pulse 71; Resp 15 S; Pulse Ox 100% on R/A; ca1 12:41 Body Mass Index 18.88 (49.90 kg, 162.56 cm) ca1 [place] Coma Score: 13:20 Eye Response: spontaneous(4). Verbal Response: oriented(5). Motor Response: obeys cp commands(6). Total: 15. 14:08 Eye Response: spontaneous(4). Verbal Response: oriented(5). Motor Response: obeys cp commands(6). Total: 15. ED Course: 12:30 Patient arrived in ED. as 12:45 Triage completed. ca1 12:45 Arm band placed on right wrist. ca1 12:45 Patient has correct armband on for positive identification. ca1 12:45 No provider procedures requiring assistance completed. Patient did not have IV access ca1 during this emergency room visit. 13:18 Chris Mercado PA is PHCP. cp 13:18 Braden Aly MD is Attending Physician. cp 13:40 CT Head Brain wo Cont In Process Unspecified. EDMS 13:41 CT Facial Bones W/O Con In Process Unspecified. EDMS 14:05 Carolyn Sellers, JABIER is Primary Nurse. ca1 Administered Medications: No medications were administered Outcome: 14:08 Discharge ordered by . cp 14:17 Discharged to home ambulatory, with significant other. ca1 14:17 Condition: stable 14:17 Discharge instructions given to patient, Instructed on discharge instructions, follow up and referral plans. no drinking with medication, no driving heavy equipment, medication usage, Demonstrated understanding of instructions, follow-up care, medications, Prescriptions given X 2. 14:18 Patient left the ED. ca1 Signatures: Dispatcher [employer] EDMO Shawna Williamson as Chris Mercado PA PA cp Carolyn Sellers RN RN ca1 Corrections: (The following items were deleted from the chart) 13:17 12:41 Chief complaint: Patient states: On Saturday hit L face corner of a wall, started ca1 with a bruise and swelling on L eye brow and just got bigger and cause bruising and swelling around L eye. Dark purple and yellow bruising around L eye. C/O pain and pressure on L eye, twitching on L eye. C/O headache on L side, dizziness. Denies N/V ca1
== END 2020-09-15 14:18 | disposition home or self-care (01) ==
LOC: ER 12:26
DX: S00.83XA Contusion of other part of head, initial encounter (principal); W22.8XXA Striking against or struck by other objects, initial encounter; Y93.9 Activity, unspecified; Y92.9 Unspecified place or not applicable; Z88.0 Allergy status to penicillin; Z88.5 Allergy status to narcotic agent; Z88.8 Allergy status to other drugs, medicaments and biological substances
CPT/HCPCS: 70450; 70486; 76377; 99283

== ENCOUNTER 2021-01-20 17:53 | Emergency (ER) | payer SELFPAY ==
--- OUTSIDE RECORDS SUMMARY | 2021-01-20 17:55 | XMS REPORT | Continuity of Care Document ---
:1975 Author Organization [facility] t Address [address] [place] [address] [address]. [address] [place] [address] Care Team Providers Name Role Phone Unavailable Unavailable Unavailable Problems Condition Condition Condition Status Onset Resolution Last Treating Co mments Source Name Details Category Date Date Treatment Clinician Date Seasonal [facility]al Problem [facility] Seizures Seizures Problem [facility] puffs as [facility] Procedures This patient has no known procedures. Encounters Start End Encounter Admission Attending Care Care Encounter Source Date/Time Date/Time Type Type Clinicians Facility Department ID 2018-04-25 2018-04-25 Outpatient Saumya Hannah [id number] [facility] [address] 10:15[facility]00 10:15:[address] [facility] ent [facility] 2018-04-25 2018-04-25 Outpatient Saumya Hannah [id number] 09:53:00 09:53:00 [facility] Results This patient has no known results.
[2021-01-20 19:25] LABS: Urine Blood 1+ (Negative); Urine Glucose Negative (Negative); Urine Protein Negative (Negative); Urine pH 6.5 (5.0-7.0)
[2021-01-20 20:41] LABS: Absolute Lymphocytes (CBC) 1.9 K/uL (0.7-4.9); Basophils % 1.2 % (0-1.3); Hematocrit 36.9 % (36.0-45.0); MPV 7.7 fL (7.6-11.3); RBC Red Blood Cell Count 4.34 M/uL (3.86-4.86)
[2021-01-20 20:51] LABS: ALT/SGPT 23 U/L (12-78); AST/SGOT 11 U/L (15-37); Albumin 3.5 g/dL (3.4-5.0); Alkaline Phosphatase 59 U/L (45-117); BUN Blood Urea Nitrogen 9 mg/dL (7-18); Bicarbonate 24 mmol/L (21-32); Bilirubin Direct < 0.1 mg/dL (0-0.2); Bilirubin Total 0.2 mg/dL (0.2-1.0); Glucose Level 108 mg/dL (74-106); Lipase 122 U/L (73-393); Potassium 3.8 mmol/L (3.5-5.1); Sodium Level 143 mmol/L (136-145)
[2021-01-20] MEDS ORDERED: KETOROLAC 30 MG/ML INJ ONE (21:24)
[2021-01-20 21:29] LABS: Urine Bacteria >50 /HPF (<20); Urine RBC <5 /HPF (NONE SEEN)
[2021-01-20] MEDS ORDERED: CEFTRIAXONE/SWI 1gm 1 GM/10 ML SYR ONE (22:16)
[2021-01-20] MEDS ORDERED: NA CHLORIDE 0.9% 50 ML ONE (22:19)
--- NOTE | 2021-01-20 22:32 | ER ---
Nurse's Notes [facility] Name: Michelle Munguia Age: 45 yrs Sex: Female : 1975 Arrival Date: 01/20/2021 Time: 17:54 Bed 30 Private MD: Diagnosis: Urinary tract infection, site not specified Presentation: 01/20 18:31 Chief complaint: Patient states: I am having hard time to pee, burning feeling started rr5 3 weeks ago and it hurts a lot on my pelvic area going to my back. Coronavirus screen: Client denies travel out of the [place] in the last 14 days. At this time, the client does not indicate any symptoms associated with coronavirus-19. Ebola Screen: Patient negative for fever greater than or equal to 101.5 degrees Fahrenheit, and additional compatible Ebola Virus Disease symptoms Patient denies exposure to infectious person. Patient denies travel to an Ebola-affected area in the 21 days before illness onset. Initial Sepsis Screen: Does the patient meet any 2 criteria? No. Patient's initial sepsis screen is negative. Does the patient have a suspected source of infection? Yes: Dysuria/Frequency/Urgency/UTI. Risk Assessment: Do you want to hurt yourself or someone else? Patient reports no desire to harm self or others. Onset of symptoms was December 2020. 18:31 Method Of Arrival: Ambulatory rr5 18:31 Acuity: XAVIER 3 rr5 Historical: - Allergies: 18:36 "cillins"; rr5 18:36 Demerol; rr5 18:36 meperidine HCl; rr5 18:36 Morphine; rr5 18:36 PENICILLINS; rr5 18:36 Phenergan; rr5 - Home Meds: 18:36 None [Active]; rr5 - PMHx: 18:36 Seizures; Asthma; rr5 - PSHx: 18:36 cyst removal; rr5 - Immunization history:: Adult Immunizations up to date, Client reports having NOT received the Covid vaccine. Flu vaccine is not up to date. - Social history:: Smoking status: unknown Patient/guardian denies using alcohol, street drugs, tobacco products. Screenin:19 Abuse screen: Denies threats or abuse. Denies injuries from another. Nutritional mg2 screening: No deficits noted. Tuberculosis screening: No symptoms or risk factors identified. Fall Risk None identified. Assessment: 20:18 General: Appears in no apparent distress. comfortable, Behavior is calm, cooperative. mg2 Pain: Complains of pain in abdomen. Neuro: Level of Consciousness is awake, alert, obeys commands, Oriented to person, place, time, situation. Cardiovascular: Capillary refill < 3 seconds Patient's skin is warm and dry. Respiratory: Airway is patent Respiratory effort is even, unlabored, Respiratory pattern is regular, symmetrical. : Reports burning with urination. EENT: No signs and/or symptoms were reported regarding the EENT system. Derm: Skin is intact, is healthy with good turgor, Skin is pink, warm \\T\\ dry. normal. Musculoskeletal: Circulation, motion, and sensation intact. Capillary refill < 3 seconds. 21:18 Reassessment: Patient is alert, oriented x 3, equal unlabored respirations, skin bb warm/dry/pink. awaiting diagnostic results. 22:46 Reassessment: Patient is alert, oriented x 3, equal unlabored respirations, skin bb warm/dry/pink. pt verbalized understanding of and agrees to plan of care discharge instructions given pt ambulated with steady gait to exit accompanied by friend. Vital Signs: 18:31 BP 140 / 92; Pulse 72; Resp 16; Temp 98.5; Pulse Ox 100% ; Weight 52.16 kg; Height 5 rr5 ft. 4 in. (162.56 cm); Pain 8/10; 21:18 BP 153 / 94; Pulse 79; Resp 16 S; Pulse Ox 100% on R/A; Pain 8/10; bb 22:46 BP 145 / 89; Pulse 72; Resp 16 S; Temp 98.5(O); Pulse Ox 100% on R/A; bb 18:31 Body Mass Index 19.74 (52.16 kg, 162.56 cm) rr5 ED Course: 17:54 Patient arrived in ED. ds1 18:35 Triage completed. rr5 18:36 Arm band placed on left wrist. rr5 20:04 Chris Mercado PA is PHCP. cp 20:04 Juventino Guerrero MD is Attending Physician. cp 20:18 Brad Connolly, JABIER is Primary Nurse. mg2 20:19 Patient has correct armband on for positive identification. mg2 20:19 No provider procedures requiring assistance completed. mg2 20:31 Inserted saline lock: 20 gauge in right forearm, using aseptic technique. Blood mg2 collected. 21:36 CT Abd/Pelvis - IV Contrast Only In Process Unspecified. EDMS 22:31 Shlomo Chapman MD is Referral Physician. cp 22:46 IV discontinued, intact, bleeding controlled, No redness/swelling at site. Pressure bb dressing applied. Administered Medications: 21:05 Drug: TORadol - Ketorolac 15 mg Route: IVP; Site: right forearm; bb 22:05 Follow up: Response: No adverse reaction bb 22:05 Drug: Rocephin - (cefTRIAXone) 1 grams Route: IVPB; Infused Over: 30 mins; Site: right bb forearm; 22:35 Follow up: IV Status: Completed infusion; IV Intake: 60ml bb 22:37 Follow up: Response: No adverse reaction bb Intake: 22:35 IV: 60ml; Total: 60ml. bb Outcome: 22:31 Discharge ordered by MD. cp 22:47 Discharged to home ambulatory, with friend. bb 22:47 Condition: stable 22:47 Discharge instructions given to patient, Instructed on discharge instructions, follow up and referral plans. medication usage, Demonstrated understanding of instructions, follow-up care, medications, Prescriptions given X 2. 22:47 Patient left the ED. bb Addendum: 01/23/2021 09:54 Addendum: Culture Results: Positive urine culture. No further action required. Bacteria i w sensitive to prescribed antibiotic. Signatures: Dispatcher [employer] EDND Summer Ramsay ds1 Ara Arguello RN RN bb Estela Mason RN RN iw Chris Mercado PA PA cp Brad Connolly RN RN mg2 Gentry Mcgrath RN RN rr5
--- NOTE | 2021-01-20 22:32 | EDPHYS ---
Physician Documentation [facility] Name: Michelle Munguia Age: 45 yrs Sex: Female : 1975 Arrival Date: 01/20/2021 Time: 17:54 Bed 30 Private MD: ED Physician Juventino Guerrero HPI: 01/20 21:00 This 45 yrs old Female presents to ER via Ambulatory with complaints of Pelvic cp Pain. 21:00 The patient presents with abdominal pain in the lower abdomen. cp 21:00 Onset: The symptoms/episode began/occurred 3 week(s) ago. The symptoms radiate to low cp back area. Associated signs and symptoms: Pertinent positives: dysuria, history of frequent heavy vaginal bleeding, Pertinent negatives: constipation, fever. The symptoms are described as waxing/waning. Historical: - Allergies: 18:36 "cillins"; rr5 18:36 Demerol; rr5 18:36 meperidine HCl; rr5 18:36 Morphine; rr5 18:36 PENICILLINS; rr5 18:36 Phenergan; rr5 - Home Meds: 18:36 None [Active]; rr5 - PMHx: 18:36 Seizures; Asthma; rr5 - PSHx: 18:36 cyst removal; rr5 - Immunization history:: Adult Immunizations up to date, Client reports having NOT received the Covid vaccine. Flu vaccine is not up to date. - Social history:: Smoking status: unknown Patient/guardian denies using alcohol, street drugs, tobacco products. ROS: 21:05 Constitutional: Negative for body aches, chills, fever, poor PO intake. cp 21:05 Eyes: Negative for injury, pain, redness, and discharge. cp 21:05 Cardiovascular: Negative for chest pain, palpitations. 21:05 Respiratory: Negative for cough, shortness of breath, wheezing. 21:05 Abdomen/GI: Positive for abdominal pain, of the right lower quadrant and left lower quadrant, Negative for nausea, vomiting, and diarrhea. 21:05 Back: Positive for radiated pain, of the low back area. 21:05 : Positive for urinary frequency, burning with urination, vaginal bleeding. 21:05 Neuro: Negative for altered mental status, dizziness, syncope, weakness. 21:05 All other systems are negative. Exam: 21:10 Constitutional: The patient appears in no acute distress, alert, awake, non-toxic, well cp developed, well nourished. 21:10 Head/Face: Normocephalic, atraumatic. cp 21:10 Eyes: Periorbital structures: appear normal, Conjunctiva: normal, no exudate, no injection, Sclera: no appreciated abnormality, Lids and lashes: appear normal, bilaterally. 21:10 ENT: External ear(s): are unremarkable, Nose: is normal, Posterior pharynx: Airway: no evidence of obstruction, patent. 21:10 Chest/axilla: Inspection: normal, Palpation: is normal, no crepitus, no tenderness. 21:10 Cardiovascular: Rate: normal, Rhythm: regular. 21:10 Respiratory: the patient does not display signs of respiratory distress, Respirations: normal, no use of accessory muscles, no retractions, labored breathing, is not present. 21:10 Abdomen/GI: Inspection: abdomen appears normal, Bowel sounds: active, all quadrants, Palpation: soft, in all quadrants, mild abdominal tenderness, in the right lower quadrant and left lower quadrant, rebound tenderness, is not appreciated, voluntary guarding, is not appreciated, involuntary guarding, is not appreciated. 21:10 Back: pain, that is mild, of the low back area, CVA tenderness, is absent. Vital Signs: 18:31 BP 140 / 92; Pulse 72; Resp 16; Temp 98.5; Pulse Ox 100% ; Weight 52.16 kg; Height 5 rr5 ft. 4 in. (162.56 cm); Pain 8/10; 21:18 BP 153 / 94; Pulse 79; Resp 16 S; Pulse Ox 100% on R/A; Pain 8/10; bb 22:46 BP 145 / 89; Pulse 72; Resp 16 S; Temp 98.5(O); Pulse Ox 100% on R/A; bb 18:31 Body Mass Index 19.74 (52.16 kg, 162.56 cm) rr5 MDM: 20:05 Patient medically screened. cp 21:00 Differential diagnosis: diverticulitis, Dysmenorrhea, Pyelonephritis, Ureterolithiasis, cp urinary tract infection. 22:30 Data reviewed: vital signs, nurses notes, lab test result(s), radiologic studies, CT cp scan. 22:30 Counseling: I had a detailed discussion with the patient and/or guardian regarding: the cp historical points, exam findings, and any diagnostic results supporting the discharge/admit diagnosis, lab results, radiology results, the need for outpatient follow up, an OB/Gyne specialist, to return to the emergency department if symptoms worsen or persist or if there are any questions or concerns that arise at home. 22:30 Response to treatment: the patient's symptoms have markedly improved after treatment. cp 01/20 19:24 Order name: Urine Dipstick-Ancillary; Complete Time: 21:01 EDMS 01/20 21:01 Interpretation: Normal except: UBLD 1+. cp 01/20 19:33 Order name: Urine --Ancillary (enter results); Complete Time: 21:01 ar5 01/20 20:21 Order name: Basic Metabolic Panel; Complete Time: 21:01 mg2 01/20 21:01 Interpretation: Normal except: CL 114; GLUC 108; GFR 83; CA 8.0. 01/20 20:21 Order name: CBC with Diff; Complete Time: 21:01 mg2 01/20 20:21 Order name: Hepatic Function; Complete Time: 21:01 mg2 01/20 20:21 Order name: Lipase; Complete Time: 21:01 mg2 01/20 20:21 Order name: IV Saline Lock; Complete Time: 20:31 mg2 01/20 20:21 Order name: Labs collected and sent; Complete Time: 20:31 mg2 01/20 20:42 Order name: Urine Microscopic Only cp 01/20 20:43 Order name: Urine Microscopic Only; Complete Time: 21:53 EDMS 01/20 21:53 Interpretation: Normal except: UBACT >50. 01/20 21:02 Order name: CT Abd/Pelvis - IV Contrast Only 01/20 21:30 Order name: Urine Culture EDMS Administered Medications: 21:05 Drug: TORadol - Ketorolac 15 mg Route: IVP; Site: right forearm; bb 22:05 Follow up: Response: No adverse reaction bb 22:05 Drug: Rocephin - (cefTRIAXone) 1 grams Route: IVPB; Infused Over: 30 mins; Site: right bb forearm; 22:35 Follow up: IV Status: Completed infusion; IV Intake: 60ml bb 22:37 Follow up: Response: No adverse reaction bb Disposition: 01/21 05:35 Co-signature as Attending Physician, Juventino Guerrero MD. [email or web address] Disposition: 01/20/21 22:31 Discharged to Home. Impression: Urinary tract infection, site not specified. - Condition is Stable. - Discharge Instructions: Urinary Tract Infection, Adult. - Prescriptions for Ibuprofen 800 mg Oral Tablet - take 1 tablet by ORAL route every 8 hours As needed take with food; 30 tablet. Bactrim DS 800- 160 mg Oral Tablet - take 1 tablet by ORAL route every 12 hours for 7 days; 14 tablet. - Medication Reconciliation Form, Thank You Letter, Antibiotic Education, Prescription Opioid Use form. - Follow up: Shlomo Chapman MD; When: 2 - 3 days; Reason: Recheck today's complaints. - Problem is new. - Symptoms have improved. Signatures: Dispatcher [employer] EDAra Marquez RN RN bb Chris Mercado PA PA cp Brad Connolly RN RN [facility] Gentry Mcgrath RN RN rr5 Juventino Guerrero MD MD 7 Corrections: (The following items were deleted from the chart) 01/20 21:01 21:01 Normal except: CL 114; GLUC 108; GFR 83. cp cp 22:47 22:31 01/20/2021 22:31 Discharged to Home. Impression: Urinary tract infection, site bb not specified. Condition is Stable. Forms are Medication Reconciliation Form, Thank You Letter, Antibiotic Education, Prescription Opioid Use. Follow up: Shlomo Chapman; When: 2 - 3 days; Reason: Recheck today's complaints. Problem is new. Symptoms have improved. cp
--- NOTE | 2021-01-23 09:51 | RAD REPORT ---
EXAM DESCRIPTION: CT - Abdomen Pelvis W Contrast - 01/21/2021 6:14 am CLINICAL HISTORY: ABD PAIN. COMPARISON: None. TECHNIQUE: CT of the abdomen and pelvis was performed following intravenous administration of iodina lloyd contrast. Arterial phase images through the abdomen, and portal venous phase images through the a bdomen and pelvis were obtained. Oral contrast was not administered. Axial, coronal, and sagittal sof t tissue window reconstructions were created and sent to PACS. This exam was performed according to our departmental dose-optimization program, which includes autom ated exposure control, adjustment of the mA and/or kV according to patient size and/or use of iterati ve reconstruction technique. FINDINGS: Thoracic: Right lower lobe 0.7 cm solid pulmonary nodule. Hepatobiliary: Tiny hypodensity along the posterior subcapsular region of the right hepatic lobe, pos sibly a cyst or hemangioma. No concerning hepatic lesion identified. The hepatic and portal veins are patent. Grossly unremarkable appearance of the contracted gallbladder. No biliary ductal dilatation. Pancreas: Unremarkable. Spleen: Unremarkable. Gastrointestinal: No evidence of bowel obstruction or perienteric inflammation. The appendix is brittnee l. Moderate amount of fecal material throughout the colon. Adrenals: No abnormality identified in either adrenal gland. Renal: Few tiny left renal hypodensities, likely cysts. No concerning parenchymal abnormality in eith er kidney. No hydronephrosis or urolithiasis. Bladder/Reproductive: Unremarkable appearance of the urinary bladder by CT technique. Left ovarian co rpus luteum cyst. Vascular/Lymphatics: No lymphadenopathy identified by CT size criteria. Abdominal aorta is normal in caliber. Diminutive size of the celiac axis, favored congenital. The remaining major visceral vessels are patent and normal in caliber. Musculoskeletal: No concerning osseous lesion identified. Fluid / peritoneum: No significant free fluid. No free intraperitoneal air identified. IMPRESSION 2. No acute abnormality identified in the abdomen or pelvis by CT. 3. Diminutive caliber of the celiac axis, favored congenital. The remaining major visceral vessels are patent and normal in caliber. 4. Moderate amount of fecal material throughout the colon. Normal appendix. 5. Right lower lobe 7 mm indeterminate pulmonary nodule. Recommend a non-contrast Chest CT at 6-12 months. If patient is high risk for malignancy, recommend an additional non-contrast Chest CT at 18-2 4 months; if patient is low risk for malignancy a non-contrast Chest CT at 18-24 months is optional. 6. These guidelines do not apply to immunocompromised patients and patients with cancer. Follow up in patients with significant comorbidities as clinically warranted (Reference: Radiology. 2017; 284(1 ):228-43). Electronically signed by: Brianna Martinez MD 01/20/2021 9:53 PM CDT Due to temporary technical issues with the PACS/Fluency reporting system, reports are being signed by the in house radiologist without review as a courtesy to ensure prompt reporting. The interpreting r adiologist is fully responsible for the content of the report.
== END 2021-01-20 22:47 | disposition home or self-care (01) ==
LOC: ER 17:53
DX: N39.0 Urinary tract infection, site not specified (principal); Z88.0 Allergy status to penicillin; Z88.5 Allergy status to narcotic agent; Z88.8 Allergy status to other drugs, medicaments and biological substances
CPT/HCPCS: 36415; 74177; 80048; 80076; 81003; 81015; 81025; 83690; 85025; 87077; 87086; 87088; 87186; 96365; 96375; 99284; J0696; Q9967

== ENCOUNTER 2021-01-30 02:40 | Emergency (ER) | payer SELFPAY ==
--- OUTSIDE RECORDS SUMMARY | 2021-01-30 02:43 | XMS REPORT | Continuity of Care Document ---
:1975 Author Organization [facility] t Address [address] [place] [address] [address]. [address] [place] [address] Care Team Providers Name Role Phone Unavailable [...] puffs as [facility] Procedures This patient has no known procedures. Encounters Start End Encounter Admission Attending Care Care Encounter Source Date/Time Date/Time Type Type Clinicians Facility Department ID 2018-04-25 2018-04-25 Outpatient Saumya Hannah [id number] [facility] 10:15:00 10:15:00 [facility] 2018-04-25 2018-04-25 Outpatient Saumya Hannah [id number] 09:53:00 09:53:00 [facility] Results This patient has no known results.
[2021-01-30] MEDS ORDERED: ONDANSETRON 4 MG/2 ML VIAL ONE (03:35)
[2021-01-30] MEDS ORDERED: FAMOTIDINE 20 MG/2 ML VIAL IV ONE (03:35)
[2021-01-30] MEDS ORDERED: NA CHLORIDE 0.9% 1,000 ML ONE (03:36)
[2021-01-30 04:14] LABS: Absolute Lymphocytes (CBC) 1.5 K/uL (0.7-4.9); Basophils % 1.3 % (0-1.3); Hematocrit 38.4 % (36.0-45.0); Lymphocytes % 30.6 % (15.3-44.8); MPV 8.3 fL (7.6-11.3); RBC Red Blood Cell Count 4.51 M/uL (3.86-4.86)
[2021-01-30 04:30] LABS: ALT/SGPT 20 U/L (12-78); AST/SGOT 14 U/L (15-37); Albumin 3.6 g/dL (3.4-5.0); Alkaline Phosphatase 63 U/L (45-117); BUN Blood Urea Nitrogen 16 mg/dL (7-18); Bicarbonate 24 mmol/L (21-32); Bilirubin Direct < 0.1 mg/dL (0-0.2); Bilirubin Total 0.2 mg/dL (0.2-1.0); Glucose Level 103 mg/dL (74-106); Lipase 157 U/L (73-393); Protein, Total 7.3 g/dL (6.4-8.2); Sodium Level 137 mmol/L (136-145)
[2021-01-30 05:55] LABS: Urine Bacteria <20 /HPF (<20); Urine RBC <5 /HPF (NONE SEEN)
[2021-01-30 05:55] LABS: Urine Blood TRACE (Negative); Urine Glucose NEGATIVE (Negative); Urine Protein NEGATIVE (Negative); Urine Specific Gravity >1.030 (1.005-1.030); Urine pH 6.5 (5.0-7.0)
[2021-01-30 05:56] LABS: Urine Specific Gravity/Preg >1.030 (1.005-1.030)
--- NOTE | 2021-01-30 07:03 | ER ---
Nurse's Notes [facility] Name: Michelle Munguia Age: 45 yrs Sex: Female : 1975 Arrival Date: 01/30/2021 Time: 02:45 Bed 8 Private MD: Diagnosis: Generalized abdominal pain;Abnormal uterine and vaginal bleeding, unspecified;Constipation, unspecified;Uterine Fibroids Presentation: 01/30 02:59 Chief complaint: Patient states: she was here last week and diagnosed with a UTI but bb her symptoms are not improving she has lower abdominal pain, difficulty urinating, and she has been bleeding vaginally since yesterday with a lot of big clots. Coronavirus screen: At this time, the client does not indicate any symptoms associated with coronavirus-19. Ebola Screen: No symptoms or risks identified at this time. Initial Sepsis Screen: Does the patient meet any 2 criteria? No. Patient's initial sepsis screen is negative. Does the patient have a suspected source of infection? No. Patient's initial sepsis screen is negative. Risk Assessment: Do you want to hurt yourself or someone else? Patient reports no desire to harm self or others. Onset of symptoms was January 27, 2021. 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 - Social history:: Smoking status: Patient denies any tobacco usage or history of. Screenin:38 Abuse screen: Denies threats or abuse. Denies injuries from another. Nutritional rr5 screening: No deficits noted. Tuberculosis screening: No symptoms or risk factors identified. Fall Risk IV access (20 points). Total Grover Fall Scale indicates No Risk (0-24 pts). Assessment: 03:00 General: Appears in no apparent distress. uncomfortable, Behavior is calm, cooperative, rr5 appropriate for age. 03:00 Pain: Complains of pain in pelvis Pain currently is 7 out of 10 on a pain scale. rr5 Quality of pain is described as aching, Pain began gradually. Neuro: Level of Consciousness is awake, alert, obeys commands, Oriented to person, place, time, situation. Cardiovascular: Capillary refill < 3 seconds Patient's skin is warm and dry. Respiratory: Airway is patent Respiratory effort is even, unlabored, Respiratory pattern is regular, symmetrical. GI: Abdomen is round non-distended, Abd is soft and non tender Reports lower abdominal pain, nausea. : Urine is blood tinged, Reports burning with urination, discharge, from vagina that is bloody, vaginal bleeding that is. EENT: No signs and/or symptoms were reported regarding the EENT system. Derm: Skin is intact, is healthy with good turgor, Skin temperature is warm. Musculoskeletal: Capillary refill < 3 seconds. 04:20 Reassessment: Patient appears in no apparent distress at this time. Patient is alert, rr5 oriented x 3, equal unlabored respirations, skin warm/dry/pink. awaiting for results. 05:19 Reassessment: Patient appears in no apparent distress at this time. provider at bedside rr5 explaining the results. 06:00 Reassessment: Patient appears in no apparent distress at this time. Patient and/or rr5 family updated on plan of care and expected duration. Pain level reassessed. 07:22 Reassessment: Patient appears in no apparent distress at this time. Patient is alert, rr5 oriented x 3, equal unlabored respirations, skin warm/dry/pink. discharge instruction given and explained without complaints made. Vital Signs: 02:59 BP 114 / 78; Pulse 76; Resp 16 S; Temp 98.4(O); Pulse Ox 100% on R/A; Weight 53.52 kg bb (R); Height 5 ft. 4 in. (162.56 cm) (R); Pain 9/10; 04:00 BP 125 / 75; Pulse 79; Resp 16; Pulse Ox 98% ; rr5 05:16 BP 117 / 81; Pulse 70; Resp 16; Pulse Ox 98% ; rr5 06:05 BP 112 / 70; Pulse 76; Resp 16; Pulse Ox 98% ; rr5 07:00 BP 121 / 80; Pulse 75; Resp 16; Pulse Ox 98% ; rr5 02:59 Body Mass Index 20.25 (53.52 kg, 162.56 cm) bb ED Course: 02:45 Patient arrived in ED. bp1 02:57 Juventino Guerrero MD is Attending Physician. 7 03:01 Triage completed. bb 03:01 Arm band placed on Patient placed in an exam room, on a stretcher, on pulse oximetry. bb 03:05 Patient has correct armband on for positive identification. Placed in gown. Bed in low rr5 position. Call light in reach. Pulse ox on. NIBP on. 03:07 Ken Lawrence, RN is Primary Nurse. rv 03:35 Inserted saline lock: 20 gauge in left forearm, using aseptic technique. Blood rr5 collected. 03:35 EKG done, by ED staff, reviewed by Juventino Guerrero MD. rr5 06:11 CT Abd/Pelvis - IV Contrast Only In Process Unspecified. EDSD 07:01 Hortensia Molina MD is Referral Physician. mh7 07:23 No provider procedures requiring assistance completed. IV discontinued, intact, rr5 bleeding controlled, No redness/swelling at site. Pressure dressing applied. Administered Medications: 03:57 Drug: NS 0.9% 1000 ml Route: IV; Rate: 1000 ml; Site: left forearm; rr5 05:11 Follow up: IV Status: Completed infusion; IV Intake: 1000ml rv 03:57 Drug: Zofran (Ondansetron) 4 mg Route: IVP; Site: left forearm; rr5 05:11 Follow up: Response: No adverse reaction rv 03:57 Drug: Pepcid (famotidine) 20 mg Route: IVP; Site: left forearm; rr5 05:11 Follow up: Response: No adverse reaction rv Intake: 05:11 IV: 1000ml; Total: 1000ml. rv Outcome: 07:02 Discharge ordered by . mh7 07:23 Discharged to home ambulatory. rr5 07:23 Condition: stable 07:23 Discharge instructions given to patient, Instructed on discharge instructions, follow up and referral plans. medication usage, Demonstrated understanding of instructions, follow-up care, medications, Prescriptions given X 3. 07:24 Patient left the ED. rr5 Signatures: Dispatcher [employer] Ara Black RN RN Ken Johnson, RN RN rv Gentry Mcgrath RN RN rr5 Leny Lofton Maurice, MD MD 7
--- NOTE | 2021-01-30 07:03 | EDPHYS ---
Physician Documentation [facility] Name: Michelle Munguia Age: 45 yrs Sex: Female : 1975 Arrival Date: 01/30/2021 Time: 02:45 Bed 8 Private MD: ED Physician Juventino Guerrero HPI: 01/30 03:26 This 45 yrs old Female presents to ER via Ambulatory with complaints of mh7 Abdominal Pain, Back Pain, Vaginal Bleeding. 03:26 The patient presents with abdominal pain that is diffuse. mh7 03:27 Onset: The symptoms/episode began/occurred 1 week(s) ago. The symptoms radiate to both mh7 flanks. Associated signs and symptoms: Pertinent positives: nausea, vaginal bleeding, started yesterday, Pertinent negatives: anorexia, blood in stools, chest pain, constipation, diarrhea, dysuria, fever, headache, hematuria, palpitations, shortness of breath, vaginal discharge, vomiting, vomiting blood. The symptoms are described as intermittent, vague, waxing/waning. Modifying factors: The symptoms are alleviated by nothing, the symptoms are aggravated by nothing. Severity of pain: At its worst the pain was moderate 5 day(s) ago, in the emergency department the pain is unchanged. The patient has been recently seen at the [facility] Emergency Department, last week. 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 - Social history:: Smoking status: Patient denies any tobacco usage or history of. ROS: 03:27 Constitutional: Negative for fever, chills, and weight loss, Eyes: Negative for injury, mh7 pain, redness, and discharge, ENT: Negative for injury, pain, and discharge, Neck: Negative for injury, pain, and swelling, Cardiovascular: Negative for chest pain, palpitations, and edema, Respiratory: Negative for shortness of breath, cough, wheezing, and pleuritic chest pain, MS/Extremity: Negative for injury and deformity, Skin: Negative for injury, rash, and discoloration, Neuro: Negative for headache, weakness, numbness, tingling, and seizure, Psych: Negative for depression, anxiety, suicide ideation, homicidal ideation, and hallucinations, Allergy/Immunology: Negative for hives, rash, and allergies, Endocrine: Negative for neck swelling, polydipsia, polyuria, polyphagia, and marked weight changes, Hematologic/Lymphatic: Negative for swollen nodes, abnormal bleeding, and unusual bruising. Exam: 03:27 Constitutional: This is a well developed, well nourished patient who is awake, alert, mh7 and in no acute distress. Head/Face: Normocephalic, atraumatic. Eyes: Pupils equal round and reactive to light, extra-ocular motions intact. Lids and lashes normal. Conjunctiva and sclera are non-icteric and not injected. Cornea within normal limits. Periorbital areas with no swelling, redness, or edema. Neck: Trachea midline, no thyromegaly or masses palpated, and no cervical lymphadenopathy. Supple, full range of motion without nuchal rigidity, or vertebral point tenderness. No Meningismus. Chest/axilla: Normal chest wall appearance and motion. Nontender with no deformity. No lesions are appreciated. Cardiovascular: Regular rate and rhythm with a normal S1 and S2. No gallops, murmurs, or rubs. Normal PMI, no JVD. No pulse deficits. Respiratory: Lungs have equal breath sounds bilaterally, clear to auscultation and percussion. No rales, rhonchi or wheezes noted. No increased work of breathing, no retractions or nasal flaring. 03:27 Back: No spinal tenderness. No costovertebral tenderness. Full range of motion. Skin: Warm, dry with normal turgor. Normal color with no rashes, no lesions, and no evidence of cellulitis. MS/ Extremity: Pulses equal, no cyanosis. Neurovascular intact. Full, normal range of motion. Neuro: Awake and alert, GCS 15, oriented to person, place, time, and situation. Cranial nerves II-XII grossly intact. Motor strength 5/5 in all extremities. Sensory grossly intact. Cerebellar exam normal. Normal gait. 03:27 Abdomen/GI: Inspection: abdomen appears normal, Bowel sounds: normal, in all quadrants, Palpation: mild abdominal tenderness, in all quadrants, Rectal exam: the exam is deferred, because of patient request, Indicators: McBurney's point is not tender, Barlow's sign is negative, Rovsing's sign is negative, Obturator sign is negative, Psoas sign is negative, Liver: no appreciated palpable abnormalities, Hernia: not appreciated. 06:59 : Pelvic Exam: The exam is refused by the patient/guardian. The risks and mh7 consequences are understood by the patient. Vital Signs: 02:59 BP 114 / 78; Pulse 76; Resp 16 S; Temp 98.4(O); Pulse Ox 100% on R/A; Weight 53.52 kg bb (R); Height 5 ft. 4 in. (162.56 cm) (R); Pain 9/10; 04:00 BP 125 / 75; Pulse 79; Resp 16; Pulse Ox 98% ; rr5 05:16 BP 117 / 81; Pulse 70; Resp 16; Pulse Ox 98% ; rr5 06:05 BP 112 / 70; Pulse 76; Resp 16; Pulse Ox 98% ; rr5 07:00 BP 121 / 80; Pulse 75; Resp 16; Pulse Ox 98% ; rr5 02:59 Body Mass Index 20.25 (53.52 kg, 162.56 cm) bb MDM: 06:59 Differential diagnosis: appendicitis, bowel obstruction, cholecystitis, Cholelithiasis, mh7 diverticulitis, gastritis, gastroesophageal reflux disease, non-specific abd pain, pancreatitis, Ureterolithiasis, urinary tract infection, uterine fibroids. Data reviewed: vital signs, nurses notes, old medical records, lab test result(s), CBC, electrolytes, urinalysis, UPT: negative. Data interpreted: Pulse oximetry: on room air is 98 %. Interpretation: normal. Counseling: I had a detailed discussion with the patient and/or guardian regarding: the historical points, exam findings, and any diagnostic results supporting the discharge/admit diagnosis, lab results, radiology results, the need for outpatient follow up, to return to the emergency department if symptoms worsen or persist or if there are any questions or concerns that arise at home. Response to treatment: the patient's symptoms have markedly improved after treatment. 07:02 Patient medically screened. 7 01/30 03:14 Order name: Basic Metabolic Panel; Complete Time: 04:40 [facility] 01/30 03:14 Order name: CBC with Diff; Complete Time: 04:29 [facility] 01/30 03:14 Order name: Hepatic Function; Complete Time: 04:40 [facility] 01/30 03:14 Order name: Lipase; Complete Time: 04:40 [facility] 01/30 03:52 Order name: Urine Microscopic Only; Complete Time: 06:32 [facility]MS 01/30 03:14 Order name: IV Saline Lock; Complete Time: 03:37 [facility] 01/30 03:14 Order name: Labs collected and sent; Complete Time: 03:37 [facility] 01/30 05:11 Order name: Urine Dipstick--Ancillary (enter results); Complete Time: 06:32 [facility] 01/30 05:11 Order name: Urine --Ancillary (enter results); Complete Time: 06:32 [facility] 01/30 05:21 Order name: CT Abd/Pelvis - IV Contrast Only [facility] 01/30 03:14 Order name: Urine Dipstick-Ancillary (obtain specimen); Complete Time: 05:15 [facility] 01/30 03:14 Order name: Urine Test (obtain specimen); Complete Time: 05:15 [facility] 01/30 03:14 Order name: EKG - Nurse/Tech; Complete Time: 03:37 [facility] 01/30 04:45 Order name: Straight Cath - Urine; Complete Time: 04:47 rr5 Administered Medications: 03:57 Drug: NS 0.9% 1000 ml Route: IV; Rate: 1000 ml; Site: left forearm; rr5 05:11 Follow up: IV Status: Completed infusion; IV Intake: 1000ml rv 03:57 Drug: Zofran (Ondansetron) 4 mg Route: IVP; Site: left forearm; rr5 05:11 Follow up: Response: No adverse reaction rv 03:57 Drug: Pepcid (famotidine) 20 mg Route: IVP; Site: left forearm; rr5 05:11 Follow up: Response: No adverse reaction rv Disposition: 01/30/21 07:02 Discharged to Home. Impression: Generalized abdominal pain, Abnormal uterine and vaginal bleeding, unspecified, Constipation, unspecified, Uterine Fibroids. - Condition is Stable. - Discharge Instructions: Dysfunctional Uterine Bleeding, Constipation, Adult, [id number], Abdominal Pain, Adult, [id number], Uterine Fibroids, [id number]. - Prescriptions for Dulcolax (bisacodyl) 5 mg Oral tablet,delayed release (DR/EC) - take 1 tablet by ORAL route once daily As needed; 5 tablet. Bentyl 20 mg Oral Tablet - take 1 tablet by ORAL route every 6 hours As needed; 20 tablet. Lactulose 10 gram/15 mL Oral Solution - take 30 milliliters by ORAL route once daily As needed; 150 milliliter. - Work release form, Medication Reconciliation Form, Thank You Letter, Antibiotic Education, Prescription Opioid Use form. - Follow up: Private Physician; When: 1 - 2 days; Reason: Worsening of condition, Recheck today's complaints, Continuance of care, Re-evaluation by your physician. Follow up: Hortensia Molina MD; When: 1 - 2 days; Reason: Worsening of condition, Recheck today's complaints. - Problem is an ongoing problem. - Symptoms have improved. Signatures: Dispatcher [employer] [facility] Ara Arguello RN RN bb Gentry Mcgrath RN RN rr5 Juventino Guerrero MD MD mh7 Ken Lawrence RN rv Corrections: (The following items were deleted from the chart) 05:18 03:52 Test, Urine ordered. [facility] 07:24 07:02 01/30/2021 07:02 Discharged to Home. Impression: Generalized abdominal pain; rr5 Abnormal uterine and vaginal bleeding, unspecified; Constipation, unspecified; Uterine Fibroids. Condition is Stable. Forms are Medication Reconciliation Form, Thank You Letter, Antibiotic Education, Prescription Opioid Use. Follow up: Private Physician; When: 1 - 2 days; Reason: Worsening of condition, Recheck today's complaints, Continuance of care, Re-evaluation by your physician. Follow up: Hortensia Molina; When: 1 - 2 days; Reason: Worsening of condition, Recheck today's complaints. Problem is an ongoing problem. Symptoms have improved. mh7
[2021-01-30 07:34] VITALS: TEMP 98.4
[2021-01-30 07:35] VITALS: O2SAT 98
[2021-01-30 07:39] VITALS: BP 121/80
--- NOTE | 2021-01-30 11:21 | RAD REPORT ---
EXAM DESCRIPTION: CT - Abdomen Pelvis W Contrast - 01/30/2021 6:46 am CLINICAL HISTORY: Abd pain;Flank pain;Vaginal bleeding TECHNIQUE: Axial computed tomography images of the abdomen and pelvis with intravenous contrast. S agittal and coronal reformatted images were created and reviewed. This CT exam was performed using one or more of the following dose reduction techniques: automated exposure control, adjustment of t he mA and/or kV according to patient size, and/or use of iterative reconstruction technique. COMPARISON: 01/20/2021 FINDINGS: Limitations: None. Lung bases: There is a small granuloma in the right lower lobe. No further evaluation needed. Pleural space: No abnormality noted. Heart: No abnormality noted. Mediastinum: No abnormality noted. ABDOMEN: Liver: There is a tiny peripheral cyst in the liver. No further evaluation of the cysts needed . Gallbladder and bile ducts: No calcified stones or surrounding fluid. Pancreas: Homogeneous enhancement. No mass, inflammation or ductal dilation. Spleen: No abnormality noted. Adrenals: Visualized portions appear normal. Kidneys and ureters: 4 mm fluid cyst in the left kidney. No further evaluation needed. Right kidney appears normal. No stones or hydronephrosis. Stomach and bowel: Large amounts of colonic stool again noted. There is no obstruction or infl ammation. PELVIS: Appendix: Well seen and appears normal. Bladder: No filling defects to suggest mass or large stone. No inflammation. Reproductive: Small uterine fibroid present. ABDOMEN and PELVIS: Intraperitoneal space: No free air. No significant fluid collection. Bones/joints: No acute change noted. Soft tissues: No abnormality noted. Vasculature: No abdominal aortic aneurysm. Lymph nodes: No pathologically enlarged lymph nodes. IMPRESSION: Chronic changes as above. No acute disease. Electronically signed by: Melissa Cates MD 01/30/2021 6:34 AM CDT Due to temporary technical issues with the PACS/Fluency reporting system, reports are being signed by the in house radiologist without review as a courtesy to ensure prompt reporting. The interpreting r adiologist is fully responsible for the content of the report.
== END 2021-01-30 07:24 | disposition home or self-care (01) ==
LOC: ER 02:40
DX: K59.00 Constipation, unspecified (principal); N93.9 Abnormal uterine and vaginal bleeding, unspecified; D25.9 Leiomyoma of uterus, unspecified; Z88.0 Allergy status to penicillin; Z88.1 Allergy status to other antibiotic agents; Z88.5 Allergy status to narcotic agent; Z88.8 Allergy status to other drugs, medicaments and biological substances
CPT/HCPCS: 36415; 74177; 80048; 80076; 81003; 81015; 81025; 83690; 85025; 93005; 96361; 96374; 96375; 99284; J2405; J7030; Q9967

== ENCOUNTER 2021-04-09 13:20 | Emergency (ER) | payer BC, SELFPAY ==
--- OUTSIDE RECORDS SUMMARY | 2021-04-09 13:23 | XMS REPORT | Continuity of Care Document ---
:1975 Author Organization [facility] t Address [address] [place] [address] Care Team Providers Name Role Phone Zayda Monahan MD Attending Clinician Dmitriy AMADO Attending Clinician Doctor Unassigned, Name Attending Clinician Unavailable Problems Condition Condition Condition Status Onset [...] PCN Adverse Active hives [facility] Demerol Adverse Active hives [facility]ics Medications Ordered Filled Start Stop Current Ordering Indication Dosage Frequency Signature Comments Components Source Medication Medication Date Date Medication? Clinician (SIG) Name Name Lisa Gonzalez Yes Sanya [address] [facility] Respi[facility] RespiClick [place] needed [facility] ent Clinics Procedures This patient has no known procedures. Encounters Start End Encounter Admission Attending Care Care Encounter Source Date/Time Date/Time Type Type Clinicians Facility Department ID 2021-04-05 2021-04-05 Telephone Replaced by [facility] [id number] 00:00:00 00:00:00 Lisa Hood [id number] [place] [id number] Professio [id number] [address] 2021-03-28 2021-03-28 Office Dmitriy [facility] [id number] 15:19:18 16:29:02 Visit Nieves Hood [id number] [place] [id number] Professio [id number] [address] 2021-03-28 2021-03-28 Orders Doctor GRULLON [id number] 00:00:00 00:00:00 Only Unassigned, DES[place] [id number] [place] [facility] [id number] 2018-04-25 2018-04-25 [facility] [id number] 10:15:00 10:15:00 [facility] 2018-04-25 2018-04-25 [facility] [id number] 09:53:00 09:53:00 [facility] Results This patient has no known results.
[2021-04-09] MEDS ORDERED: LIDOCAINE VISCOUS 2% SOLN 15 ML UDC ONE (14:36)
[2021-04-09] MEDS ORDERED: MAGNES/ALUMIN/SIMET 30ML UCUP ONE (14:36)
--- NOTE | 2021-04-09 14:46 | RAD REPORT ---
EXAM DESCRIPTION: Manish Alarcon (2 Views)04/09/2021 2:26 pm CLINICAL HISTORY: Cough COMPARISON: 2017 FINDINGS: The lungs appear clear of acute infiltrate. The heart is normal size IMPRESSION: No acute abnormalities displayed
--- NOTE | 2021-04-09 16:06 | ER ---
Nurse's Notes [facility] Name: Michelle Munguia Age: 45 yrs Sex: Female : 1975 Arrival Date: 04/09/2021 Time: 13:21 Bed 8 Private MD: Diagnosis: Acute laryngitis Presentation: 04/09 13:38 Chief complaint: Patient states: Sore throat, loosing voice, fatigue, L trunk pain, ll1 cough since Saturday. No known fever. Coronavirus screen: Client denies travel out of the [place] in the last 14 days. cough unrelated to allergies, difficulty breathing, fatigue, headache, shortness of breath, sore throat, Client presents with at least one sign or symptom that may indicate coronavirus-19. Standard/surgical mask placed on the client. Ebola Screen: Patient denies travel to an Ebola-affected area in the 21 days before illness onset. Initial Sepsis Screen: Does the patient meet any 2 criteria? No. Patient's initial sepsis screen is negative. Does the patient have a suspected source of infection? Yes: Other: sore throat. Risk Assessment: Do you want to hurt yourself or someone else? Patient reports no desire to harm self or others. Onset of symptoms was April 07, 2021. 13:38 Method Of Arrival: Ambulatory ll1 13:38 Acuity: XAVIER 3 ll1 Historical: - Allergies: 13:40 "cillins"; ll1 13:40 Demerol; ll1 13:40 meperidine HCl; ll1 13:40 Morphine; ll1 13:40 PENICILLINS; ll1 13:40 Phenergan; ll1 - PMHx: 13:40 Asthma; Seizures; ll1 - PSHx: 13:40 cyst removal; ll1 - Immunization history:: Flu vaccine is not up to date. - Social history:: Smoking status: Patient denies any tobacco usage or history of. Screenin:29 Abuse screen: Denies threats or abuse. Denies injuries from another. Nutritional tr6 screening: No deficits noted. Tuberculosis screening: No symptoms or risk factors identified. Fall Risk None identified. Assessment: 16:26 General: Appears in no apparent distress. Behavior is calm, cooperative, appropriate tr6 for age. Pain: Complains of pain in throat. Neuro: No deficits noted. Cardiovascular: No deficits noted. Respiratory: No deficits noted. GI: No deficits noted. : No deficits noted. EENT: Throat is reddened. Derm: No deficits noted. Musculoskeletal: No deficits noted. Vital Signs: 13:38 BP 127 / 83; Pulse 66; Resp 17; Temp 98.5; Pulse Ox 100% ; Weight 53.52 kg; Height 5 ll1 ft. 4 in. (162.56 cm); Pain 9/10; 13:38 Body Mass Index 20.25 (53.52 kg, 162.56 cm) ll1 ED Course: 13:21 Patient arrived in ED. as 13:40 Triage completed. ll1 13:41 Arm band placed on. ll1 13:44 Khushboo Wesley F[facility]C [facility]. kb 13:44 Chris Jain MD is Attending Physician. kb 13:50 Patient placed in an exam room, on a stretcher. ll1 14:05 Maryan Gomez, RN is Primary Nurse. kg 14:23 Chest Pa And Lat (2 Views) XRAY In Process Unspecified. EDMS 14:29 Resting quietly. tr6 14:29 Patient has correct armband on for positive identification. Bed in low position. Call tr6 light in reach. Side rails up X2. Pulse ox on. NIBP on. 14:29 No provider procedures requiring assistance completed. tr6 14:30 Inserted saline lock: 20 gauge in right antecubital area, using aseptic technique. kg Administered Medications: 14:40 Drug: GI Cocktail without - (Maalox Suspension 30 ml, Lidocaine Liquid 2 % 15 kg ml) Route: PO; Outcome: 16:06 Discharge ordered by . kb 16:26 Discharged to home ambulatory. tr6 16:26 Condition: good 16:26 Discharge instructions given to patient, Instructed on discharge instructions, follow up and referral plans. safety practices, Demonstrated understanding of instructions, follow-up care, medications. 16:27 Patient left the ED. tr6 Signatures: Dispatcher [employer] EDMS Khushboo Wesley FNP-C FNP-Shawna Salazar Lynsay RN RN ll1 Geri Mckeon RN RN tr6 Maryan Gomez RN RN kg
--- NOTE | 2021-04-09 16:06 | EDPHYS ---
Physician Documentation [facility] Name: Michelle Munguia Age: 45 yrs Sex: Female : 1975 Arrival Date: 04/09/2021 Time: 13:21 Bed 8 Private MD: DENNY Physician Chris Jain HPI: 04/09 17:15 This 45 yrs old Female presents to ER via Ambulatory with complaints of Sore kb Throat, Fatigue, Rib Pain. 17:15 The patient presents with sore throat. The patient describes throat pain as constant. kb Onset: The symptoms/episode began/occurred 3 day(s) ago. Severity of symptoms: At their worst the symptoms were moderate, in the emergency department the symptoms are unchanged. Modifying factors: The symptoms are alleviated by nothing, the symptoms are aggravated by swallowing, Patient's oral intake status: good Denies contact with similarly ill indivduals. Associated signs and symptoms: Pertinent positives: Sore throat. The patient has not experienced similar symptoms in the past. The patient has not recently seen a physician. Pt reports her throat started hurting on Saturday. States the pain has gotten worse, she is losing her voice and is tired. . Historical: - Allergies: 13:40 "cillins"; ll1 13:40 Demerol; ll1 13:40 meperidine HCl; ll1 13:40 Morphine; ll1 13:40 PENICILLINS; ll1 13:40 Phenergan; ll1 - PMHx: 13:40 Asthma; Seizures; ll1 - PSHx: 13:40 cyst removal; ll1 - Immunization history:: Flu vaccine is not up to date. - Social history:: Smoking status: Patient denies any tobacco usage or history of. ROS: 17:13 Abdomen/GI: Negative for abdominal pain, nausea, vomiting, diarrhea, and constipation. kb 17:13 Constitutional: Positive for fatigue, malaise, Negative for body aches, chills, fever, poor PO intake, weight loss. 17:13 ENT: Positive for hoarseness, sore throat. 17:13 All other systems are negative. Exam: 17:13 Constitutional: This is a well developed, well nourished patient who is awake, alert, kb and in no acute distress. Head/Face: Normocephalic, atraumatic. ENT: Moist Mucous membranes Cardiovascular: Regular rate and rhythm with a normal S1 and S2. No gallops, murmurs, or rubs. No pulse deficits. Respiratory: Respirations even and unlabored. No increased work of breathing, no retractions or nasal flaring. Abdomen/GI: Soft, non-tender. No distention Skin: Warm, dry with normal turgor. Normal color. MS/ Extremity: Pulses equal, no cyanosis. Neurovascular intact. Full, normal range of motion. Neuro: Awake and alert, GCS 15, oriented to person, place, time, and situation. Moves all extremities. Normal gait. Psych: Awake, alert, with orientation to person, place and time. Behavior, mood, and affect are within normal limits. Vital Signs: 13:38 BP 127 / 83; Pulse 66; Resp 17; Temp 98.5; Pulse Ox 100% ; Weight 53.52 kg; Height 5 ll1 ft. 4 in. (162.56 cm); Pain 9/10; 13:38 Body Mass Index 20.25 (53.52 kg, 162.56 cm) ll1 MDM: 13:52 Patient medically screened. kb 17:11 Data reviewed: vital signs, nurses notes. Data interpreted: Pulse oximetry: on room air kb is 100 %. Interpretation: normal. Counseling: I had a detailed discussion with the patient and/or guardian regarding: the historical points, exam findings, and any diagnostic results supporting the discharge/admit diagnosis, lab results, radiology results, the need for outpatient follow up, a family practitioner, to return to the emergency department if symptoms worsen or persist or if there are any questions or concerns that arise at home. 04/09 13:45 Order name: Strep; Complete Time: 16:05 kb 04/09 14:06 Order name: [place] Screen Profile kb 04/09 13:44 Order name: Chest Pa And Lat (2 Views) XRAY; Complete Time: 14:50 kb 04/09 14:07 Order name: [place] Screen; Complete Time: 15:10 EDMS 04/09 16:03 Order name: Throat Culture EDMS Administered Medications: 14:40 Drug: GI Cocktail without - (Maalox Suspension 30 ml, Lidocaine Liquid 2 % 15 kg ml) Route: PO; Disposition: 04/09/21 16:06 Discharged to Home. Impression: Acute laryngitis. - Condition is Stable. - Discharge Instructions: Laryngitis, [id number]. - Medication Reconciliation Form, Thank You Letter, Antibiotic Education, Prescription Opioid Use, Work release form form. - Follow up: Emergency Department; When: As needed; Reason: Worsening of condition. Follow up: Private Physician; When: 2 - 3 days; Reason: Recheck today's complaints, Continuance of care, Re-evaluation by your physician. Addendum: 04/12/2021 11:35 Co-signature as Attending Physician, Chris Jain MD I agree with the assessment and c aleman plan of care. 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 Signatures: Dispatcher [employer] EDMS Khushboo Wesley, TAIL PULLER-C TAIL PULLER-Chris Barber MD MD cha Lewis, Lynsay, RN RN ll1 Geri Mckeon RN RN tr6 Maryan Gomez RN RN kg Corrections: (The following items were deleted from the chart) 04/09 16:27 16:06 04/09/2021 16:06 Discharged to Home. Impression: Acute laryngitis. Condition is tr6 Stable. Forms are Medication Reconciliation Form, Thank You Letter, Antibiotic Education, Prescription Opioid Use. Follow up: Emergency Department; When: As needed; Reason: Worsening of condition. Follow up: Private Physician; When: 2 - 3 days; Reason: Recheck today's complaints, Continuance of care, Re-evaluation by your physician. kb
[2021-04-09 16:33] VITALS: BP 127/83; TEMP 98.5; O2SAT 100
== END 2021-04-09 16:27 | disposition home or self-care (01) ==
LOC: ER 13:20
DX: J04.0 Acute laryngitis (principal); J45.909 Unspecified asthma, uncomplicated
CPT/HCPCS: 36415; 71046; 86308; 87070; 87081; 99284

== ENCOUNTER 2021-04-25 19:41 | Observation (INO) | payer BC ==
--- OUTSIDE RECORDS SUMMARY | 2021-04-25 19:45 | XMS REPORT | Continuity of Care Document ---
:1975 Author Organization [facility] t Address [address] [place] [address] Care Team Providers Name Role Phone Zayda [...] PCN Adverse Active hives [facility] ent Clinics Demerol Adverse Active hives [facility] ent Clinics Medications Ordered Filled Start Stop Current Ordering Indication Dosage Frequency Signature Comments Components Source Medication Medication Date Date Medication? Clinician (SIG) Name Name Lisa Gonzalez Yes Sanya [address] [facility] RespiClick RespiClick [place] needed [facility] ent Clinics Procedures This patient has no known procedures. Encounters Start End Encounter Admission Attending Care Care Encounter Source Date/Time Date/Time Type Type Clinicians Facility Department ID 2021-04-05 2021-04-05 Telephone [facility] [id number] 00:00:00 00:00:00 Lisa Hood [id number] [place] [id number] Professio [phone] [address] 2021-03-28 2021-03-[address] [facility] [id number] 15:19:18 16:29:02 Visit Nieves Hood [id number] [place] [id number] Professio [phone] [address] 2021-03-28 2021-03-28 Orders Doctor [place] [id number] 00:00:00 00:00:00 Only Unassigned, DESIRE [id number] [place] [facility] [id number] 2018-04-25 2018-04-25 [facility] [id number] [facility] [address] 10:15:00 10:15:00 [facility] ent [facility] 2018-04-25 2018-04-25 [facility] [id number] 09:53:00 09:53:00 [facility] ent [facility] Results This patient has no known results.
[2021-04-25 21:31] LABS: Urine Blood Trace-lysed (Negative); Urine Glucose Negative (Negative); Urine Protein Negative (Negative); Urine Specific Gravity >=1.030 (1.005-1.030); Urine pH 5.5 (5.0-7.0)
[2021-04-25 21:52] LABS: Urine Specific Gravity/Preg >1.030 (1.005-1.030)
[2021-04-25] MEDS ORDERED: HYDROCODONE/APAP 5/325 MG TAB ONE (22:14)
[2021-04-25] MEDS ORDERED: ONDANSETRON 4 MG/2 ML VIAL ONE (22:14)
[2021-04-25] MEDS ORDERED: NA CHLORIDE 0.9% 1,000 ML ONE (22:14)
[2021-04-25 22:40] LABS: Absolute Lymphocytes (CBC) 1.4 K/uL (0.7-4.9); Basophils % 0.3 % (0-1.3); Hematocrit 39.4 % (36.0-45.0); Lymphocytes % 25.4 % (15.3-44.8); MPV 7.7 fL (7.6-11.3); RBC Red Blood Cell Count 4.56 M/uL (3.86-4.86)
[2021-04-25 22:48] LABS: Urine Bacteria 20-50 /HPF (<20); Urine Mucus 1+ /HPF (NONE SEEN); Urine RBC <5 /HPF (NONE SEEN)
[2021-04-25 22:55] LABS: ALT/SGPT 25 U/L (12-78); AST/SGOT 9 U/L (15-37); Albumin 3.8 g/dL (3.4-5.0); Alkaline Phosphatase 65 U/L (45-117); BUN Blood Urea Nitrogen 10 mg/dL (7-18); Bicarbonate 27 mmol/L (21-32); Bilirubin Direct 0.1 mg/dL (0-0.2); Bilirubin Total 0.4 mg/dL (0.2-1.0); Glucose Level 106 mg/dL (74-106); Lipase 108 U/L (73-393); Potassium 3.6 mmol/L (3.5-5.1); Protein, Total 7.4 g/dL (6.4-8.2); Sodium Level 143 mmol/L (136-145)
--- NOTE | 2021-04-25 23:55 | ER ---
Nurse's Notes [facility] Name: Michelle Munguia Age: 45 yrs Sex: Female : 1975 Arrival Date: 04/25/2021 Time: 19:44 Bed 25 Private MD: Diagnosis: UTI/ Urinary tract infection, site not specified;Failed outpatient therapy;Bilateral flank pain Presentation: 04/25 20:23 Chief complaint: Patient states: "A week ago I was peeing blood and I was given vg1 antibiotics at [facility] and Im still taking the antibiotics and I'm feeling right back to how it was before going in the be seen. My back really hurts and when I go pee it crum really bad.". Coronavirus screen: Client denies travel out of the [place] in the last 14 days. Ebola Screen: Patient negative for fever greater than or equal to 101.5 degrees Fahrenheit, and additional compatible Ebola Virus Disease symptoms. Initial Sepsis Screen: Does the patient meet any 2 criteria? No. Patient's initial sepsis screen is negative. Does the patient have a suspected source of infection? No. Patient's initial sepsis screen is negative. Risk Assessment: Do you want to hurt yourself or someone else? Patient reports no desire to harm self or others. Onset of symptoms was April 25, 2021. 20:23 Method Of Arrival: Ambulatory vg1 20:23 Acuity: XAVIER 3 vg1 Triage Assessment: 20:25 General: Appears in no apparent distress. uncomfortable, Behavior is calm, cooperative. vg1 Pain: Complains of pain in back. 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 - Social history:: Smoking status: Patient denies any tobacco usage or history of. Screenin:35 Abuse screen: Denies threats or abuse. Nutritional screening: No deficits noted. bb Tuberculosis screening: No symptoms or risk factors identified. Fall Risk None identified. Assessment: 21:35 General: Appears in no apparent distress. uncomfortable, slender. Neuro: Level of bb Consciousness is awake, alert, obeys commands, Oriented to person, place, time, situation. Cardiovascular: Capillary refill < 3 seconds Patient's skin is warm and dry. Respiratory: Respiratory effort is even, labored, Respiratory pattern is regular. GI: No signs and/or symptoms were reported involving the gastrointestinal system. : Reports urinary frequency. Derm: Skin is pink, warm \\T\\ dry. Musculoskeletal: Circulation, motion, and sensation intact. 22:17 Reassessment: pt to CT scan via wheelchair with transfill technician. bb 23:32 Reassessment: Patient is alert, oriented x 3, equal unlabored respirations, skin bb warm/dry/pink. IV site intact, with no erythema or edema noted, awaiting diagnostic results. 07 00:32 Reassessment: pt admitted to ED Hold report given to Lori EUGENE. bb Vital Signs: 04/25 20:23 BP 134 / 83; Pulse 66; Resp 16; Temp 98.0; Pulse Ox 99% ; Weight 53.52 kg; Height 5 ft. vg1 4 in. (162.56 cm); Pain 8/10; 23:37 BP 131 / 68; Pulse 61; Resp 15; Pulse Ox 99% on R/A; dh4 20:23 Body Mass Index 20.25 (53.52 kg, 162.56 cm) vg1 ED Course: 19:44 Patient arrived in ED. wm 20:25 Triage completed. vg1 20:25 Arm band placed on Patient placed in waiting room, Patient notified of wait time. vg1 21:27 Ishmael Mueller NP is PHCP. pm1 21:28 Chris Jain MD is Attending Physician. pm1 21:35 Ara Arguello, JABIER is Primary Nurse. bb 21:35 Patient has correct armband on for positive identification. placed in chair. bb 22:00 Initial lab(s) drawn, by me, sent to lab. Urine collected: clean catch specimen, clear. bb Inserted saline lock: 20 gauge in right antecubital area, using aseptic technique. Blood collected. 22:31 CT Abd/Pelvis - IV Contrast Only In Process Unspecified. EDMS 23:54 Bud Tello PA is Hospitalizing Provider. pm1 04/26 00:32 No provider procedures requiring assistance completed. Patient admitted, IV remains in bb place. 02:31 COVID-19 : Document "Date of Symptom Onset" if Symptomatic. Sent. bb3 11:18 Diet: Patient given snack. mh5 Administered Medications: 04/25 22:00 Drug: NS 0.9% 1000 ml Route: IV; Rate: 1000 ml; Site: right antecubital; bb 23:34 Follow up: IV Status: Completed infusion; IV Intake: 1000ml bb 22:17 Drug: HYDROcodone-acetaminophen 5 mg-325 mg 1 tabs {Note: RASS 0.} Route: PO; bb 23:35 Follow up: Response: No adverse reaction; Pain is decreased; RASS: Alert and Calm (0) bb 22:17 Drug: Zofran (Ondansetron) 4 mg Route: IVP; Site: right antecubital; bb 23:34 Follow up: Response: No adverse reaction bb 04/26 02:31 Drug: Meropenem 1 grams Route: IV; Rate: 200 mg/hr; Site: right antecubital; bb3 03:43 Follow up: Response: No adverse reaction; IV Status: Completed infusion; IV Intake: bb3 100ml Intake: 04/25 23:34 IV: 1000ml; Total: 1000ml. bb 04/26 03:43 IV: 100ml; Total: 1100ml. bb3 Outcome: 04/25 23:54 Decision to Hospitalize by Provider. pm1 04/26 00:32 Admitted to ER Hold. Please see [facility] for further documentation. bb Condition: stable Instructed on the need for admit. 18:16 Patient left the ED. iw Signatures: Dispatcher [employer] EDMS Ara Arguello RN RN bb Estela Mason RN RN Ishmael Mueller, TETO BLEACH PACKER pm1 Susu Williamson 5 Connie Jackson 3 Dennys Gauthier 4 Richelle Salvador, RN RN 1 Misti Rizzo
--- NOTE | 2021-04-25 23:55 | EDPHYS ---
Physician Documentation [facility] Name: Michelle Munguia Age: 45 yrs Sex: Female : 1975 Arrival Date: 04/25/2021 Time: 19:44 Bed 25 Private MD: ED Physician Chris Jain HPI: 04/25 21:49 This 45 yrs old Female presents to ER via Ambulatory with complaints of pm1 Urinary Problem. 21:49 The patient presents with flank pain, bilaterally, urinary symptoms. pm1 21:49 Onset: The symptoms/episode began/occurred 1 month(s) ago, and became worse 1 week(s) pm1 ago. Modifying factors: The symptoms are alleviated by Macrobid seemed to help for awhile, the symptoms are aggravated by urinating. Associated signs and symptoms: Pertinent negatives: diarrhea, fever, nausea, vomiting. Severity of symptoms: in the emergency department the symptoms are actually worse. Macrobid prescription from ER visit at [facility] 1 week ago. Patient currently taking the antibiotics. Reports that it is the second medication she has taken for this UTI. 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 - Social history:: Smoking status: Patient denies any tobacco usage or history of. ROS: 21:49 Positive for urinary symptoms, flank pain, burning with urination. pm1 21:49 Constitutional: Negative for fever, chills, and weight loss, Cardiovascular: Negative for chest pain, palpitations, and edema, Respiratory: Negative for shortness of breath, cough, wheezing, and pleuritic chest pain. 21:49 MS/Extremity: Negative for injury and deformity, Skin: Negative for injury, rash, and discoloration, Neuro: Negative for headache, weakness, numbness, tingling, and seizure. 21:49 Abdomen/GI: Positive for abdominal pain, of the suprapubic area, Negative for nausea, vomiting, and diarrhea. 21:49 Back: Positive for flank pain, bilaterally. 21:49 : Positive for flank pain, burning with urination. 21:49 All other systems are negative. Exam: 21:49 Constitutional: This is a well developed, well nourished patient who is awake, alert, pm1 and in no acute distress. Head/Face: Normocephalic, atraumatic. 21:49 Skin: Warm, dry with normal turgor. Normal color with no rashes, no lesions, and no evidence of cellulitis. MS/ Extremity: Pulses equal, no cyanosis. Neurovascular intact. Full, normal range of motion. 21:49 Eyes: Exam is negative for acute changes, Periorbital structures: appear normal, Extraocular movements: intact throughout. 21:49 ENT: Exam is negative for acute changes, Mouth: Lips: normal, Oral mucosa: normal, pink and intact, moist. 21:49 Cardiovascular: Rate: normal, Rhythm: regular, Pulses: no pulse deficits are appreciated. 21:49 Respiratory: Exam negative for acute changes, respiratory distress, shortness of breath. 21:49 Abdomen/GI: Inspection: abdomen appears normal, Palpation: soft, in all quadrants, moderate abdominal tenderness, in the suprapubic area. 21:49 Back: pain, that is moderate, of the left low back and right low back. 21:49 Neuro: Exam negative for acute changes, Orientation: is normal, Mentation: is normal, Motor: is normal, moves all fours. Vital Signs: 20:23 BP 134 / 83; Pulse 66; Resp 16; Temp 98.0; Pulse Ox 99% ; Weight 53.52 kg; Height 5 ft. vg1 4 in. (162.56 cm); Pain 8/10; 23:37 BP 131 / 68; Pulse 61; Resp 15; Pulse Ox 99% on R/A; dh4 20:23 Body Mass Index 20.25 (53.52 kg, 162.56 cm) vg1 MDM: 21:32 Patient medically screened. [facility] 23:45 Data reviewed: vital signs. Data interpreted: Pulse oximetry: on room air is 99 %. pm1 Interpretation: normal. 23:45 Data reviewed: I have discussed the patient's presentation/case with the attending pm1 Emergency Department Physician; and as a result, I will admit patient, due to failed outpatient therapy. Recommends meropenum. 23:45 Counseling: I had a detailed discussion with the patient and/or guardian regarding: the pm1 historical points, exam findings, and any diagnostic results supporting the discharge/admit diagnosis, lab results, radiology results, the need for further work-up and treatment in the hospital. 04/25 21:30 Order name: Urine Dipstick-Ancillary; Complete Time: 21:39 [facility] 04/25 21:37 Order name: Urine --Ancillary (enter results); Complete Time: 23:18 [facility] 04/25 21:40 Order name: Basic Metabolic Panel; Complete Time: 23:18 pm04/25 21:40 Order name: CBC with Diff; Complete Time: 23:18 04/25 21:40 Order name: Hepatic Function; Complete Time: 23:18 04/25 21:40 Order name: Lipase; Complete Time: 23:18 04/25 21:40 Order name: Urine Microscopic Only; Complete Time: 23:18 04/25 21:45 Order name: Urine Culture 04/25 23:45 Order name: Digoxin 04/26 02:25 Order name: CBC with Automated Diff [facility] 04/26 02:25 Order name: CBC with Automated Diff [facility] 04/26 02:25 Order name: CBC with Automated Diff [facility] 04/25 21:37 Order name: Urine Dipstick-Ancillary (obtain specimen); Complete Time: 21:37 [facility] 04/25 21:37 Order name: Urine Test (obtain specimen); Complete Time: 21:37 [facility] 04/25 21:40 Order name: IV Saline Lock; Complete Time: 22:17 04/25 21:40 Order name: CT Abd/Pelvis - IV Contrast Only 04/26 02:25 Order name: Regular [facility] 04/26 02:25 Order name: Comprehensive Metabolic Panel [facility] 04/26 02:25 Order name: Comprehensive Metabolic Panel [facility] 04/26 02:25 Order name: Comprehensive Metabolic Panel [facility] 04/26 02:25 Order name: C.difficile GDH Ag [facility] 04/26 02:26 Order name: COVID-19 : Document "Date of Symptom Onset" if Symptomatic. [facility] 04/26 04:19 Order name: SARS-COV-2 RT PCR [facility] 04/26 06:58 Order name: CREATININE WHOLE BLOOD [facility] 04/25 21:40 Order name: Labs collected and sent; Complete Time: 22:17 pm1 Administered Medications: 22:00 Drug: NS 0.9% 1000 ml Route: IV; Rate: 1000 ml; Site: right antecubital; bb 23:34 Follow up: IV Status: Completed infusion; IV Intake: 1000ml :17 Drug: HYDROcodone-acetaminophen 5 mg-325 mg 1 tabs {Note: RASS 0.} Route: PO; bb 23:35 Follow up: Response: No adverse reaction; Pain is decreased; RASS: Alert and Calm (0) :17 Drug: Zofran (Ondansetron) 4 mg Route: IVP; Site: right antecubital; bb 23:34 Follow up: Response: No adverse reaction 04/26 02:31 Drug: Meropenem 1 grams Route: IV; Rate: 200 mg/hr; Site: right antecubital; bb3 03:43 Follow up: Response: No adverse reaction; IV Status: Completed infusion; IV Intake: bb3 100ml Disposition Summary: 04/25/21 23:54 Hospitalization Ordered Hospitalization Status: Inpatient Admission pm1 Provider: Bud Tello pm1 Condition: Stable pm1 Problem: new pm1 Symptoms: have improved pm1 Bed/Room Type: Standard pm1 Location: [facility] ER HOLD(04/26/21 01:08) mw2 Room Assignment: ERHOLD-(04/26/21 01:08) mw2 Diagnosis - UTI/ Urinary tract infection, site not specified pm1 - Failed outpatient therapy pm1 - Bilateral flank pain pm1 Forms: - Medication Reconciliation Form pm1 - SBAR form pm1 Signatures: Dispatcher [employer] EDMS Chris Jain MD MD cha Ballard, Brenda RN RN bb Ishmael Mueller, TETO BASTING PULLER pm1 Kumar Carver 2 Connie Jackson bb3 Richelle Salvador, RN RN vg1 Corrections: (The following items were deleted from the chart) 04/25 23:51 23:45 Data reviewed: I have discussed the patient's presentation/case with the pm1 attending Emergency Department Physician; and as a result, I will admit patient, failed outpatient therapy, pm1 23:56 23:45 Digoxin Level ordered. EDMS EDMS 04/26 01:04/25 23:54 Telemetry/MedSurg (Inpatient) 1 [facility] 04/26 01:04/25 23:[facility] 04/[facility] 02:25 02:24 Blood Culture ordered. EDMS EDMS
[2021-04-26] MEDS ORDERED: ACETAMINOPHEN 500 MG TAB PO PRN (02:23)
[2021-04-26] MEDS ORDERED: ONDANSETRON 4 MG/2 ML VIAL IV PRN (02:23)
[2021-04-26] MEDS ORDERED: HYDROCODONE/APAP 5/325 MG TAB PO PRN (02:23)
[2021-04-26] MEDS ORDERED: Meropenem 500 MG VIAL IV ONE (02:47)
[2021-04-26] MEDS ORDERED: NA CHLORIDE 0.9% 100 ML ONE (02:49)
[2021-04-26] MEDS: NA CHLORIDE 0.9% 1,000 ML IV SCH ×3 (03:15→16:22)
[2021-04-26] MEDS ORDERED: NA CHLORIDE 0.9% 1,000 ML ONE ×2 (03:30→16:40)
[2021-04-26 03:39] VITALS: BMI 20.2
--- NOTE | 2021-04-26 03:59 | P.HP ---
Certification for Inpatient Patient admitted to: Observation With expected LOS: <2 Midnights Patient will require the following post-hospital care: None Practitioner: I am a practitioner with admitting privileges, knowledge of patient current condition, hospital course, and medical plan of care. Services: Services provided to patient in accordance with Admission requirements found in Title 42 Section 412.3 of the Code of Federal Regulations Patient History Date of Service: 04/26/21 Primary Care Provider: Farooq Reason for admission: UTI History of Present Illness: Ms. Munguia is a 45 yo F here today with worsening UTI symptoms. She says symptoms began a few months ago, but she first presented to the ED 1 month ag evelyn canas pratibha antibiotics. Last week, she began to have hematuria so she went to urgent care and was dischared with antibiotics. Today she presents with continued hematuria, dysuria, urgency, frequency, bilateral flank pain, and difficulty urinating. She says she couldn't bear the pain. Says she has to 'push' in order to urinate. Reports night sweats, nausea, diarrhea. Pain worse with ambulation, eating, drinking. CT scan showed thickened appearance of bladder wall may be secondary to incomplete distention Allergies meperidine HCl [From Demerol] Allergy (Verified 04/26/21 03:27) Anaphylaxis morphine Allergy (Verified 04/26/21 03:27) Hives/Rash Penicillins Allergy (Verified 04/26/21 03:27) Rash promethazine [From Phenergan] Allergy (Verified 04/26/21 03:26) hallucinate "cillians" Allergy (Uncoded 04/26/21 03:26) Hives/Rash all cillins Allergy (Uncoded 04/26/21 03:27) Hives/Rash Home Medications: Cephalexin [Keflex] 500 mg PO QID #0 capsule 05/18/12 Hydrocodone/Acetaminophen [[place] 5-325 Tablet] 1 each PO TIDP PRN #0 tablet 05/18/12 - Past Medical/Surgical History Has patient received pneumonia vaccine in the past: No Diabetic: No -: none Past Surgical History: Patient denies surgical history - Family History Mother -: Diabetes Father -: Hypertension, Stroke - Social History Smoking Status: Never smoker Alcohol use: No CD- Drugs: No Caffeine use: Yes Place of Residence: Home Review of Systems 10-point ROS is otherwise unremarkable Genitourinary: Dysuria, Frequency, Urgency, Hematuria Physical Examination - Vital Signs Blood Pressure: 122/83 Pulse: 74 Respirations: 17 Pulse Ox (%): 100 - Physical Exam General: Alert, In no apparent distress HEENT: Atraumatic, PERRLA, Mucous membr. moist/pink, EOMI, Sclerae nonicteric Neck: Supple, 2+ carotid pulse no bruit, No LAD, Without JVD or thyroid abnormality Respiratory: Clear to auscultation bilaterally, Normal air movement Cardiovascular: Regular rate/rhythm, Normal S1 S2 Gastrointestinal: Normal bowel sounds, Soft and benign, Non-distended, No ascites, No masses, No rebound, No guarding, Tenderness Musculoskeletal: No tenderness Integumentary: No rashes Neurological: Normal gait, Normal speech, Normal strength at 5/5 x4 extr, Normal tone, Normal affect Lymphatics: No axilla or inguinal lymphadenopathy - Studies Laboratory Data (last 24 hrs) 04/25/21 22:20: WBC 5.50, Hgb 12.9, Hct 39.4, Plt Count 252 04/25/21 22:20: Sodium 143, Potassium 3.6, BUN 10, Creatinine 0.64, Glucose 106, Total Bilirubin 0.4, AST 9 L, ALT 25, Alkaline Phosphatase 65, Lipase 108 Assessment and Plan - Plan Assessment UTI, failure of outpatient therapy Plan continue IVF hydration, continue IV abx, pain management as needed, urine culture pending DVT ppx Discharge Plan: Home Plan to discharge in: 24 Hours - Advance Directives Does patient have a Living Will: No Does patient have a Durable POA for Healthcare: No - Code Status/Comfort Care Code Status Assessed: Yes (full code ) Critical Care: No Time Spent Managing Pts Care (In Minutes): 70
[2021-04-26 05:55] LABS: Absolute Lymphocytes (CBC) 1.9 K/uL (0.7-4.9); Basophils % 0.8 % (0-1.3); Hematocrit 36.1 % (36.0-45.0); Lymphocytes % 30.6 % (15.3-44.8); MPV 7.5 fL (7.6-11.3); RBC Red Blood Cell Count 4.23 M/uL (3.86-4.86)
[2021-04-26 06:14] LABS: ALT/SGPT 20 U/L (12-78); AST/SGOT 10 U/L (15-37); Albumin 3.2 g/dL (3.4-5.0); Alkaline Phosphatase 57 U/L (45-117); BUN Blood Urea Nitrogen 10 mg/dL (7-18); Bicarbonate 28 mmol/L (21-32); Bilirubin Total 0.1 mg/dL (0.2-1.0); Glucose Level 91 mg/dL (74-106); Potassium 3.8 mmol/L (3.5-5.1); Protein, Total 6.4 g/dL (6.4-8.2); Sodium Level 143 mmol/L (136-145)
[2021-04-26] MEDS ORDERED: MINERAL OIL 30 ML UCUP PO ONE (08:37)
[2021-04-26] MEDS ORDERED: dexAMETHasone 4 MG/ML VIAL IV ONE (08:37)
[2021-04-26] MEDS ORDERED: POTASSIUM CL SA 10 MEQ TAB PO ONE ×2 (09:00→10:40)
[2021-04-26] MEDS ORDERED: ENOXAPARIN 40 MG/0.4 ML SQ SCH (09:00)
[2021-04-26] MEDS ORDERED: Meropenem 1 GM/100 ML BAG IV SCH (10:00)
[2021-04-26] MEDS ORDERED: dexAMETHasone 4 MG/ML VIAL ONE (10:40)
[2021-04-26] MEDS ORDERED: ENOXAPARIN 40 MG/0.4 ML SQ ONE (10:40)
[2021-04-26] MEDS: Meropenem 1 GM/100 ML BAG IV SCH ×2 (11:00→17:31)
[2021-04-26] MEDS ORDERED: HYDROCODONE/APAP 5/325 MG TAB ONE (11:04)
[2021-04-26 13:13] VITALS: TEMP 98
[2021-04-26] MEDS ORDERED: FLEET ENEMA ADULT PR ONE ×2 (17:00→17:16)
[2021-04-26 17:34] VITALS: BP 120/78
[2021-04-26 20:57] VITALS: O2SAT 100
--- NOTE | 2021-04-26 21:32 | RAD REPORT ---
EXAM DESCRIPTION: CT - Abdomen Pelvis W Contrast - 04/26/2021 6:54 am CLINICAL HISTORY: 45-year-old female with flank pain. Urinary issues intermittently for four months. History of bladder and kidney infection. COMPARISON: 01/30/2021 report available, images requested however were unable to be provided. TECHNIQUE: CT of the abdomen and pelvis was performed following intravenous administration of contra st. Oral contrast was not administered. Multiplanar reformatted images were provided. This exam was p erformed according to our departmental dose optimization program which includes use of automated expo sure control, adjustment of the mA and/or kV according to patient size and/or use of iterative recons truction technique. FINDINGS: Chest: Evaluation through the lung bases reveals no focal opacity, pleural effusion or pne umothorax. RIGHT lower lobe opacity with central calcification measures 6 x 7 mm, (series 401, image seven) may reflect a pulmonary nodule versus granuloma. Best practice guidelines recommend noncontrast chest CT at 3-6 months. If patient is at high risk for malignancy, an additional noncontrast chest CT at 18-24 months. These guidelines do not apply to immunocompromised patients and patients with cancer. Follow up in patients with significant comorbidities as clinically warranted. For lung cancer screening, ad here to Lung-RADS guidelines. Reference: Radiology. 2017; 284(1):228-43. Heart size is within normal limits. No pericardial effusion. Abdomen and pelvis: Mild periportal lucency, a finding which can be seen with periportal edema in the setting of systemic hypervolemia, hepatic infectious and inflammatory processes. Correlation with hepatic enzymes may be considered. The liver, gallbladder, pancreas, spleen, bilateral kidneys and bilateral adrenal glands are within normal limits. Several subcentimeter foci of hypoattenuation present within the bilateral kidneys, may reflect simpl e renal cysts, however cannot be further evaluated secondary to small size. The vessels are patent and normal in caliber. No abdominopelvic lymph nodes are noted to be pathologically enlarged by CT measurement criteria. The bowel is within normal limits without abnormal bowel wall thickness or bowel dilation. No free air. No free abdominopelvic fluid collections. The appendix is within normal limits. The uterus is within normal limits of a contrast-enhanced CT examination. Focal area of nonspecific h ypoattenuation is identified within the uterine fundus raising the possibility of intramural leiomyom a measuring 11 mm. Focus of round hypoattenuation with peripheral enhancement present at the level of the LEFT ovary dean suring up to 2.2 cm centrally with Hounsfield units measuring approximately 11 suggesting corpus lute um type cyst. Best practice guidelines recommend no further imaging evaluation. Thickened appearance of the bladder wall may be secondary to incomplete distention, however can be se en in the setting of infectious or inflammatory process. Please correlate with laboratory values. The osseous structures are within normal limits. Several subcentimeter foci of sclerosis present, pre sent within the LEFT anterior superior pubic ramus and RIGHT acetabulum raising the possibility of a bone island in the correct clinical setting. IMPRESSION: 1. No specific acute intra-abdominal findings are noted to suggest etiology of the pat ient's abdominal pain. 2. Thickened appearance of the bladder wall may be secondary to incomplete distention, however can be seen in the setting of infectious or inflammatory process. Please correlate with laboratory values . 3. Mild periportal lucency, a finding which can be seen with periportal edema in the setting of sys temic hypervolemia, hepatic infectious and inflammatory processes. Correlation with hepatic enzymes m ay be considered. 4. RIGHT lower lobe opacity with central calcification measures 6 x 7 mm, may reflect a pulmonary n odule versus granuloma. If patient is at high risk for malignancy, an additional noncontrast chest CT at 18-24 months. Electronically signed by: Antonia Chris MD 04/25/2021 11:20 PM CDT Due to temporary technical issues with the PACS/Fluency reporting system, reports are being signed by the in house radiologists without review as a courtesy to insure prompt reporting. The interpreting radiologist is fully responsible for the content of the report.
== END 2021-04-26 22:58 | disposition home or self-care (01) ==
LOC: ER 19:41 → ERHOLD 04-26 01:25
PROVIDERS: ADMIT Hospitalist; ATTEND Hospitalist
DX: N39.0 Urinary tract infection, site not specified (principal); Z88.0 Allergy status to penicillin; Z88.6 Allergy status to analgesic agent; Z88.8 Allergy status to other drugs, medicaments and biological substances; Z83.3 Family history of diabetes mellitus; Z82.3 Family history of stroke
CPT/HCPCS: 87088; 85025 ×2; 87086; 80048; 36415; 81025; 82565; 80076; 83690; 80053; 74177; 94760 ×3; U0003; Q9967; J1100; J1650; J2185 ×2; J7030 ×3; J2405; 81003; 81015; G0378

== ENCOUNTER 2022-10-30 00:13 | Emergency (ER) | payer BC ==
--- OUTSIDE RECORDS SUMMARY | 2022-10-30 00:16 | XMS REPORT | Continuity of Care Document ---
:1975 Author Organization [facility] t Address [address] [place] [address] Care Team Providers Name Role Phone Rakesh Doyle Primary Care Physician Shweta Attending Clinician Unavailable AMBREEN_WESLY Attending Clinician Unavailable Doctor Unassigned, [place] Attending Clinician Unavailable Maria Elena Attending Clinician Unavailable Ivan Beth Attending Clinician [phone] DINESH WELCH Attending Clinician Unavailable LISA MONAHAN Attending Clinician Unavailable NIEVES RIOS Attending Clinician Unavailable Lisa Monahan MD Attending Clinician Nieves Rios PA-C Attending Clinician Scott_Mihai Attending Clinician Unavailable Shweta Admitting Clinician Unavailable AMBREEN_WESLY Admitting Clinician Unavailable Maria Elena Admitting Clinician Unavailable Scott_Mihai Admitting Clinician Unavailable Payers Payer Name Policy Type Policy Number Effective Date Expiration Date Madhu patten [place] [id number] 2021 - [employer] (POS) 00:00:00 Problems Condition Condition Condition Status Onset Resolution Last Treating Co mments Source Name Details Category Date Date Treatment Clinician Date No known No known Disease Unive rs active active ity of problems problems [facility] Seizures Seizures Problem Active Commo n Spirit - [facility] Seasonal Seasonal Problem Active Commo n allergies allergies Spir it - [facility] Anxiety Anxiety Problem Active Common [facility] Uncomplica Uncomplica Problem Active C ommon lloyd lloyd Spirit asthma, asthma, - [facility] unspecifie unspecifie St d asthma d asthma [facility] severity, severity, Medi andrea unspecifie unspecifie Ce nter d whether d whether persistent persistent History of History of Problem Active C ommon calculus calculus Spirit of of - [facility] gallbladde gallbladde r r [facility] History of History of Problem Active C ommon kidney kidney Spirit stones stones - [facility] Migraine Migraine Problem Active Commo n with with Spirit status status - [facility] migrainosu migrainosu St s, not s, not [facility]ract[facility] Me dical e, e, Center unspecifie unspecifie d migraine d migraine type type Left foot Left foot Diagnosis Active C ommon pain pain [facility] Allergies, Adverse Reactions, Alerts Allergy Allergy Status Severity Reaction(s) Onset Inactive Treating Comm ents Source Name Type Date Date Clinician Morphine Propensi Active Anaphylaxis 0 U nivers ty to 6-07 ity of adverse 00:00: [place] reaction Medical [facility] MORPHINE DRUG Active Anaphylaxis Uni vers INGREDI 6-07 ity of 00:00: [place] [facility] PROMETHA DRUG Active Hallucinates Un alexia ZINE HCL INGREDI 1-30 ity of 00:00: [facility] Prometha Propensi Active Hallucinatio 0 Univers zine Hcl ty to ns 1-30 ity of adverse 00:00: [place] reaction 00 [facility] Meperidi Propensi Active Hives 0 Univer s ne Hcl ty to 5-24 ity of adverse 00:00: [place] reaction Medical [facility] Penicill Propensi Active Hives 0 Univer s ins ty to 5-24 ity of adverse 00:00: [place] reaction [facility] MEPERIDI DRUG Active Hives 0 Univers NE HCL INGREDI 5-24 ity of 00:00: [place] [facility] [place] PENICILL Drug Active Hives 0 Univers INS Class 5-24 ity of 00:00: [place] [facility] PCN Adverse Active hives Common Reaction [facility] Demerol Adverse Active hives Common Reaction [facility] Morphine Allergy Active [place] [facility] Urology e PENICILL Allergy Active [place] INS to [facility] Urology e Phenerga Allergy Active [place] [facility] e Social History Social Habit Start Date Stop Date Quantity Comments Source Exposure to Not sure [facility]-CoV-2 [facility] (event) [place] Tobacco use and 2021-03-28 2021-03-28 Never used Universit y of exposure 00:00:00 00:00:00 [facility] Alcohol intake 2021-03-28 2021-03-28 Lifetime University of 00:00:00 00:00:00 non-drinker [facility] (finding) [place] History of 2019-12-27 Smoker University of tobacco use 00:00:00 [facility] Sex Ass[birth year] Universit y of 00:00:00 00:00:00 [facility] Smoking Status Start Date Stop Date Source Former smoker 2021-03-28 00:00:00 2021-03-28 00:00:00 [facility] Never smoker [facility] Medications Ordered Filled Start Stop Current Ordering Indication Dosage Frequency Signature Comments Components Source Medication Medication Date Date Medication? Clinician (SIG) Name Name Osmany Ceron No Q1D Osmany [place] 50 mg 50 mg 7-23 50 mg [place] tablet,exte tablet,exte 14:30: tablet,ext Urology nded nded 16 ended releaseTake releaseTake releaseTak 1 tablet 1 tablet e 1 tablet every day every day every day by oral by oral by oral route for route for route for 14 days. 14 days. 14 days. No known No Univers medications 6-15 ity of 16:40: [address] No known No Univers medications 6-15 ity of 16:40: [address] No known No Univers medications [facility] No known No Univers medications [facility] No known No Univers medications [facility] No known No Univers medications [facility] No known No Univers medications [facility] ProAir ProAir Yes Sanya 2 puffs as Com mon RespiClick RespiClick [place] needed Spirit - [facility] hydrocodone hydrocodone No hydrocodon [place] 5 5 e 5 [facility] mg-acetamin mg-acetamin mg-acetami Urology ophen 325 ophen 325 nophen 325 mg tablet mg tablet mg tablet TAKE 1 TAKE 1 TAKE 1 TABLET BY TABLET BY TABLET BY MOUTH EVERY MOUTH EVERY MOUTH 12 HOURS 12 HOURS EVERY 12 NEEDED FOR NEEDED FOR HOURS PAIN (SCALE PAIN (SCALE NEEDED FOR 5 5 PAIN 7)(MODERATE 7)(MODERATE (SCALE 5 ) ) 7)(MODERAT E) levofloxaci levofloxaci No levofloxac [place] n 500 mg n 500 mg in 500 mg Me tro tablet TAKE tablet TAKE tablet Urology 1 TABLET BY 1 TABLET BY TAKE 1 MOUTH ONCE MOUTH ONCE TABLET BY DAILY DAILY MOUTH ONCE DAILY Myrbetriq Myrbetriq No 1 Q1D Myrbetriq [place] 50 mg 50 mg 50 mg [place] tablet,exte tablet,exte tablet,ext Urology nded nded ended release release release Take 1 Take 1 Take 1 tablet tablet tablet every day every day every day by oral by oral by oral route for route for route for 14 days. 14 days. 14 days. Vital Signs Vital Name Observation Time Observation Value Comments Source BP Diastolic 2021-05-05 00:00:00 75 mm[Hg] [facility] Height 2021-05-05 00:00:00 64 [in_i] [facility] BMI (Body Mass 2021-05-05 00:00:00 20.3 kg/m2 [facility] BP Systolic 2021-05-05 00:00:00 118 mm[Hg] [facility] Body Weight 2021-05-05 00:00:00 118 [lb_av] [facility] Systolic blood 2021-03-28 20:40:00 116 mm[Hg] Univer sity [facility] [place] Diastolic blood 2021-03-28 20:40:00 78 mm[Hg[facility] 2021-03-28 20:40:00 72 /min [facility] Body temperature 2021-03-28 20:40:00 36.89 [facility] [facility] Res[facility] rate 2021-03-28 20:40:00 18 /min [facility] Body height 2021-03-28 20:40:00 160 cm Universi ty of [facility] Body weight 2021-03-28 20:40:00 52.164 kg Universi ty [facility] BMI 2021-03-28 20:40:00 20.37 kg/m2 Universi ty [facility] Systolic blood 2021-03-28 20:40:00 116 mm[Hg] Univer sity of pressure [facility] Diastolic blood 2021-03-28 20:40:00 78 mm[Hg] [facility] 2021-03-28 20:40:00 72 /min Universi ty [facility] Body temperature 2021-03-28 20:40:00 36.89 [place] [facility] Respiratory rate 2021-03-28 20:40:00 18 /min [facility] Body height 2021-03-28 20:40:00 160 cm Universi ty [facility] Body weight 2021-03-28 20:40:00 52.164 kg Universi ty [facility] BMI 2021-03-28 20:40:00 20.37 kg/m2 Universi [facility] Procedures Procedure Date / Time Performing Clinician Source Performed EXTERNAL PROVIDER RECORDS 2021-07-04 05:01:00 Doctor Minor [facility] Name [facility] AUTHORIZATION TO RELEASE 2021-03-28 05:01:00 Doctor Minor [facility] PHI TO [facility] Name [facility] INSURANCE CORRESPONDENCE 2021-03-15 05:01:00 Doctor Minor [facility] Name Medical [place] Plan of Care Planned Activity Planned Date Details Comments Source Diagnostic Test 2021-05-05 urinalysis, dipstick [place] Pending 00:00:00 [code = urinalysis, Urology dipstick] Diagnostic Test 2021-05-05 culture, urine + [place] [facility] Pending 00:00:00 sensitivity [code = Urology culture, urine + sensitivity] Diagnostic Test 2021-05-05 cytology, urine [code Brittany ston [facility] Pending 00:00:00 = cytology, urine] Urology Encounters Start End Encounter Admission Attending Care Care Encounter Source Date/Time Date/Time Type Type Clinicians Facility Department ID 2022-07-13 2022-07-13 [place] [id number] [place] 00:00:00 00:00:00 0930 [facility] 2022-05-10 2022-05-10 Outpatient AMBREEN_СЕРГЕЙ NOLAND [id number] [place] 00:00:00 00:00:00 JOHN [id number] da [facility]re [facility] Program 2021-07-04 2021-07-04 Orders Doctor YADI [id number] Univers 00:00:00 00:00:00 Only Unassigned, DESIRE [id number] ity of [place] [facility] [id number] [place] [phone] [place] [address] Branch 2021-05-08 2021-05-08 Outpatient Baum_L [facility] [id number] [place] 03:23:00 03:23:00 [id number] [facility] 2021-05-05 2021-05-05 Outpatient Baum_L U [facility] [id number] [place] 12:23:00 12:23:00 [id number] [facility] 2021-05-05 2021-05-05 [facility] [place] - [id number] [place] 00:00:00 00:00:00 MD Kirit: Delon Met[facility] [address] [place] [address] , Ph. 2021-05-05 2021-05-05 Outpatient Kirit, U [facility] [id number] 00:00:00 00:00:00 Ivan [id number] 2021-05-04 2021-05-04 Outpatient FELIX WASHINGTON [id number] [facility] 15:45:00 15:45:00 02 kallie Carlson 2021-04-27 2021-04-27 Emergency E DINESH WELCH MHBL MHBL [id number] MHBL 13:47:00 16:45:00 2021-04-27 2021-04-27 Outpatient Baum_L U [facility] [id number] [place] 05:32:00 05:32:00 [id number] [facility] 2021-04-25 2021-04-25 Outpatient MHIE [place] [id number] Memoria 16:00:00 16:00:00 [place] 2021-04-11 2021-04-11 Outpatient R YAO, [facility] [id number] Univers 13:30:00 13:30:00 LISA aguilar [facility] 2021-04-06 2021-04-06 Outpatient R GABRIEL, [facility] [id number] [facility] 00:00:00 00:00:00 NIEVES aguilar [facility] 2021-04-05 2021-04-05 Outpatient MHIE IE [id number] [facility] 11:30:00 11:30:00 00 kallie BrysonAldo 2021-04-05 2021-04-05 Telephone [facility] [id number] 00:00:00 00:00:00 Lisa Hood [id number] [place] [id number] Professio [id number] [address] 2021-04-05 2021-04-05 Telephone Ad, [facility] [id number] [facility] 00:00:00 00:00:00 Lisa Hood [id number] it[id number] [place] [phone] [place] [address] 2021-03-28 2021-03-28 Office Gabriel [facility] [id number] 15:19:18 16:29:02 Visit Nieves Hood [id number] [place] [id number] Professio [phone] [address] 2021-03-28 2021-03-28 Office Nieves Rios [facility] [id number] [facility] 15:19:18 16:29:02 Visit Lisa Monahan [id number] [id number] [phone] [place] [address] 2021-03-28 2021-03-28 Outpatient Randy MONAHAN, [facility] [id number] Univers 15:00:00 15:00:00 LISA aguilar of [facility] 2021-03-28 2021-03-28 Orders Doctor YADI [id number] 00:00:00 00:00:00 Only Unassigned, DESIRE [id number] [place] [facility] [id number] 2021-03-28 2021-03-28 Orders Doctor YADI [id number] Univers 00:00:00 00:00:00 Only Unassigned, DESIRE [id number] ity of [place] [facility] [id number] [place] [phone] [address] 2021-03-15 2021-03-15 Orders Doctor YADI [id number] Univers 00:00:00 00:00:00 Only Unassigned, DESIRE [id number] ity of [place] [facility] [id number] [place] [id number] [address] 2020-07-18 2020-07-18 Outpatient Joshu_P MMG [facility] [id number] [place] 02:59:00 02:59:00 1005 Medical Group 2018-04-25 2018-04-25 Outpatient Saumya Hannah [id number] Common 10:15:00 10:15:00 [facility] 2018-04-25 2018-04-25 Outpatient Saumya [place] 14 [id number] Common 09:53:00 09:53:00 [facility] Results This patient has no known results.
[2022-10-30 00:36] LABS: Urine Blood 1+ (Negative); Urine Glucose Negative (Negative); Urine Protein Trace (Negative); Urine pH 8.5 (5.0-7.0)
[2022-10-30] MEDS ORDERED: DICYCLOMINE HCL 20 MG/2 ML AMP IM ONE (00:47)
[2022-10-30] MEDS ORDERED: ONDANSETRON 4 MG/2 ML VIAL ONE (00:47)
[2022-10-30] MEDS ORDERED: NA CHLORIDE 0.9% 1,000 ML ONE (00:47)
[2022-10-30] MEDS ORDERED: FAMOTIDINE 20 MG/2 ML VIAL IV ONE (00:47)
[2022-10-30 01:25] LABS: Absolute Lymphocytes (CBC) 2.1 K/uL (0.7-4.9); Hematocrit 41.2 % (36.0-45.0); Lymphocytes % 28.7 % (15.3-44.8); MCV 85.9 fL (80-100); MPV 7.2 fL (7.6-11.3)
[2022-10-30 01:38] LABS: Albumin 3.7 g/dL (3.4-5.0); Bilirubin Total 0.3 mg/dL (0.2-1.0); Potassium 3.4 mmol/L (3.5-5.1); Protein, Total 7.5 g/dL (6.4-8.2); Troponin High Sensitivity 12.2 pg/mL (<58.9)
[2022-10-30 01:45] LABS: Urine Bacteria None Seen /HPF (<20); Urine Mucus Slight /HPF (None Seen); Urine RBC <5 /HPF (None Seen)
[2022-10-30 02:17] LABS: SARS-COV-2 RT PCR NEGATIVE (NEGATIVE)
--- NOTE | 2022-10-30 03:46 | EDPHYS ---
Physician Documentation [facility] Name: Michelle Munguia Age: 47 yrs Sex: Female : 1975 Arrival Date: 10/30/2022 Time: 00:17 Bed 7 Private MD: ED Physician Levy Thurman HPI: 10/30 00:40 This 47 yrs old Female presents to ER via Ambulatory with complaints of cp Nausea, Back Pain. 00:40 The patient presents to the emergency department with nausea, that is moderate. cp 00:40 Onset: The symptoms/episode began/occurred 2 day(s) ago. The patient presents with pain cp that is acute, with no known mechanism of injury. The symptoms are located in the mid back area. Onset: The symptoms/episode began/occurred 2 day(s) ago. Associated signs and symptoms: Pertinent positives: epigastric abdominal pain, cough, Pertinent negatives: constipation, dysuria, fever, diarrhea. 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 - Social history:: Smoking status: unknown. ROS: 00:45 Constitutional: Negative for body aches, chills, fever, poor PO intake. cp 00:45 Eyes: Negative for injury, pain, redness, and discharge. cp 00:45 Cardiovascular: Negative for chest pain, palpitations. cp 00:45 Respiratory: Negative for cough, shortness of breath, wheezing. cp 00:45 Abdomen/GI: Positive for abdominal pain, nausea, of the epigastric area, Negative for vomiting, diarrhea, constipation. 00:45 : Negative for urinary symptoms, vaginal bleeding. 00:45 Neuro: Negative for altered mental status, headache, weakness. 00:45 ENT: Negative for drainage from ear(s), ear pain, sore throat, difficulty swallowing, cp difficulty handling secretions. 00:45 Back: Positive for pain at rest, pain with movement, of the mid back area. 00:45 All other systems are negative. cp Exam: 00:50 Constitutional: The patient appears in no acute distress, alert, awake, cp non-diaphoretic, non-toxic, well developed, well nourished, uncomfortable. 00:50 Head/Face: Normocephalic, atraumatic. cp 00:50 Eyes: Periorbital structures: appear normal, Pupils: equal, round, and reactive to cp light and accomodation, Extraocular movements: intact throughout, Conjunctiva: normal, no exudate, no injection, Sclera: no appreciated abnormality, Lids and lashes: appear normal, bilaterally. 00:50 ENT: External ear(s): are unremarkable, Nose: is normal, Mouth: Lips: moist, Oral cp mucosa: pink and intact, moist, Posterior pharynx: Airway: no evidence of obstruction, patent, swelling, is not appreciated, erythema, is not appreciated. 00:50 Neck: ROM/movement: is normal, is supple, without pain, no range of motions limitations. 00:50 Chest/axilla: Inspection: normal. 00:50 Cardiovascular: Rate: normal, Rhythm: regular, Edema: is not appreciated, JVD: is not appreciated. 00:50 Respiratory: the patient does not display signs of respiratory distress, Respirations: normal, no use of accessory muscles, no retractions, labored breathing, is not present, Breath sounds: are clear throughout, no decreased breath sounds, no stridor, no wheezing. 00:50 Abdomen/GI: Inspection: abdomen appears normal, Bowel sounds: active, all quadrants, Palpation: soft, in all quadrants, severe abdominal tenderness, in the epigastric area, rebound tenderness, is not appreciated, voluntary guarding, is elicited in the epigastric area. 00:50 Back: pain, that is severe, of the mid back area, ROM is painful, with all movement. 00:50 Skin: cellulitis, is not appreciated, no rash present. 00:50 Neuro: Orientation: to person, place \\T\\ time. Mentation: is normal, Motor: moves all fours, strength is normal, Sensation: is normal, Gait: is steady. 01:18 ECG was reviewed by the Attending Physician. cp Vital Signs: 00:34 Weight 58.06 kg; Height 5 ft. 4 in. (162.56 cm); Pain 8/10; kd3 00:40 BP 145 / 82; Pulse 72; Resp 16; Temp 98.5(O); Pulse Ox 100% on R/A; kd3 01:19 BP 141 / 91; Pulse 93; Resp 19; Pulse Ox 100% on R/A; kd3 02:06 BP 128 / 85; Pulse 84; Resp 17; Pulse Ox 100% ; kd3 03:07 BP 118 / 90; Pulse 74; Resp 19; Pulse Ox 99% on R/A; kd3 00:34 Body Mass Index 21.97 (58.06 kg, 162.56 cm) kd3 MDM: 00:24 Patient medically screened. cp 01:00 Differential diagnosis: gastritis, cholecystitis, pancreatitis, appendicitis, Basilar cp Pneumonia Cholelithiasis Pyelonephritis. 03:43 Data reviewed: vital signs, nurses notes, lab test result(s), EKG, radiologic studies, cp CT scan, plain films, ultrasound. Consideration of Admission/Observation Escalation of care including admission/observation considered. I considered the following discharge prescriptions or medication management in the emergency department Medications were administered in the Emergency Department. See MAR. Test considered but Not performed: Other Details CT chest. Counseling: I had a detailed discussion with the patient and/or guardian regarding: the historical points, exam findings, and any diagnostic results supporting the discharge/admit diagnosis, lab results, radiology results, the need for outpatient follow up, a family practitioner, a multimedia producer, to return to the emergency department if symptoms worsen or persist or if there are any questions or concerns that arise at home. Response to treatment: the patient's symptoms have markedly improved after treatment, and as a result, I will discharge patient. Special discussion: Based on the patient's Hx, exam, and Dx evaluation, there is no indication for emergent surgery or inpatient Tx. It is understood by the patient/guardian that if the Sx's persist or worsen they need to return immediately for re-evaluation. 10/30 00:36 Order name: Urine Dipstick-Ancillary; Complete Time: 00:38 EDMS 10/30 00:39 Interpretation: Normal except: UBLD 1+; UPH 8.5; UPROT Trace. cp 10/30 00:38 Order name: CBC with Diff; Complete Time: 01:52 cp 10/30 01:52 Interpretation: Normal except: EOSINOPHIL % 4.8; MPV 7.2. cp 10/30 00:38 Order name: CMP; Complete Time: 01:52 cp 10/30 01:52 Interpretation: Normal except: K 3.4; GLUC 108; GFR 89; AST 9; A/G 1.0; GLOB 3.8. cp 10/30 00:38 Order name: Lipase; Complete Time: 01:52 cp 10/30 00:38 Order name: Urine Microscopic Only; Complete Time: 01:52 cp 10/30 00:38 Order name: COVID-19/FLU A+B; Complete Time: 02:37 cp 10/30 02:37 Interpretation: Reviewed. cp 10/30 00:38 Order name: US Abdomen Limited cp 10/30 00:38 Order name: Urine Dipstick-Ancillary EDMO 10/30 00:38 Order name: Troponin High Sensitivity; Complete Time: 01:52 cp 10/30 01:52 Interpretation: Troponin HS 12.2; Reviewed. cp 10/30 00:38 Order name: XRAY Chest (1 view) cp 10/30 00:59 Order name: Urine --Ancillary (enter results); Complete Time: 02:12 oe 10/30 01:24 Order name: CT Abd/Pelvis - IV Contrast Only cp 10/30 00:38 Order name: IV Saline Lock; Complete Time: 00:42 cp 10/30 00:38 Order name: Labs collected and sent; Complete Time: 00:42 cp 10/30 00:38 Order name: Urine Dipstick-Ancillary (obtain specimen); Complete Time: 00:39 cp 10/30 00:38 Order name: Urine Test (obtain specimen); Complete Time: 01:01 cp 10/30 00:38 Order name: EKG; Complete Time: 00:39 cp 10/30 00:38 Order name: EKG - Nurse/Tech; Complete Time: 01:19 cp 10/30 00:55 Order name: NPO; Complete Time: 01:01 cp EC:18 Rate is 86 beats/min. Rhythm is regular. MA interval is normal. QRS interval is normal. cp QT interval is normal. Interpreted by me. Reviewed by me. Administered Medications: 00:58 Drug: NS 0.9% 1000 ml Route: IV; Rate: 1 bolus; Site: right antecubital; ll3 01:43 Follow up: Response: No adverse reaction; IV Status: Completed infusion; IV Intake: ll3 1000ml 00:58 Drug: Pepcid (famotidine) 20 mg Route: IVP; Site: right antecubital; ll3 03:55 Follow up: Response: No adverse reaction ll3 00:58 Drug: Zofran (Ondansetron) 4 mg Route: IVP; Site: right antecubital; ll3 03:55 Follow up: Response: No adverse reaction; Marked relief of symptoms ll3 00:58 Drug: Dicyclomine 20 mg Route: IM; Site: right gluteus; ll3 03:55 Follow up: Response: No adverse reaction; Marked relief of symptoms ll3 Disposition: 05:10 Co-signature as Attending Physician, Levy Thurman MD. rn Disposition Summary: 10/30/22 03:45 Discharge Ordered Location: Home cp Problem: new cp Symptoms: have improved cp Condition: Stable cp Diagnosis - Epigastric pain cp - Dorsalgia, unspecified cp - Nausea cp Followup: cp - With: Private Physician - When: 2 - 3 days - Reason: Recheck today's complaints Discharge Instructions: - Discharge Summary Sheet cp - Abdominal Pain, Adult cp - Acute Back Pain, Adult cp - Gastroesophageal Reflux Disease, Adult cp - Peptic Ulcer cp Forms: - Medication Reconciliation Form cp - Thank You Letter cp - Antibiotic Education cp - Prescription Opioid Use cp Prescriptions: - Protonix 40 mg Oral Tablet - take 1 tablet by ORAL route once daily; 30 tablet; Refills: 0, Product cp Selection Permitted - Zofran 4 mg Oral Tablet - take 1 tablet by ORAL route every 12 hours As needed; 20 tablet; Refills: 0, cp Product Selection Permitted Signatures: Dispatcher [employer] EDLevy Carrera MD MD rn Page, Corey, PA PA cp Na Melgar RN RN ll3 Sidra Colon RN RN kd3 Corrections: (The following items were deleted from the chart) 10/31 02:06 10/30 00:45 Abdomen/GI: Positive for nausea, Negative for vomiting, diarrhea, cp constipation, cp 10/31 02:06 10/30 00:45 All other systems are negative, cp cp
--- NOTE | 2022-10-30 03:46 | ER ---
Nurse's Notes [facility] Name: Michelle Munguia Age: 47 yrs Sex: Female : 1975 Arrival Date: 10/30/2022 Time: 00:17 Bed 7 Private MD: Diagnosis: Epigastric pain;Dorsalgia, unspecified;Nausea Presentation: 10/30 00:28 Chief complaint: Patient states: I have severe pain right where my kidneys are on both kd3 sides. it started Saturday night when I got off work. I have a history of kidney stones. Coronavirus screen: Vaccine status: Patient reports being unvaccinated. Ebola Screen: No symptoms or risks identified at this time. Initial Sepsis Screen: Does the patient meet any 2 criteria?. Risk Assessment: Do you want to hurt yourself or someone else? Patient reports no desire to harm self or others. Onset of symptoms was October 30, 2022. 00:28 Method Of Arrival: Ambulatory kd3 00:28 Acuity: XAVIER 3 kd3 01:20 Initial Sepsis Screen: Does the patient have a suspected source of infection? No. kd3 Patient's initial sepsis screen is negative. Triage Assessment: 00:31 General: Appears uncomfortable, Behavior is calm, cooperative. Pain: Complains of pain kd3 in left low back and right low back. Neuro: Level of Consciousness is awake, alert, obeys commands, Oriented to person, place, time, situation. Cardiovascular: Patient's skin is warm and dry. Respiratory: Airway is patent Trachea midline Respiratory effort is even, unlabored, Respiratory pattern is regular, symmetrical. GI: Reports nausea. 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 - Social history:: Smoking status: unknown. Screenin:38 [facility] ED Fall Risk Assessment (Adult) History of falling in the last 3 months, kd3 including since admission No falls in past 3 months (0 pts) Confusion or Disorientation No (0 pts) Intoxicated or Sedated No (0 pts) Impaired Gait No (0 pts) Mobility Assist Device Used No (0 pt) Altered Elimination No (0 pt) Score/Fall Risk Level 0 - 2 = Low Risk. Abuse screen: Denies threats or abuse. Denies injuries from another. Nutritional screening: No deficits noted. Tuberculosis screening: No symptoms or risk factors identified. Assessment: 00:37 General: pt reports recently being diagnosed with bronchitis. . Pain: Complains of pain kd3 in right low back and left low back. Neuro: Level of Consciousness is awake, alert, obeys commands, Oriented to person, place, time, situation. Cardiovascular: Patient's skin is warm and dry. Respiratory: Airway is patent Trachea midline Respiratory effort is even, unlabored, Respiratory pattern is regular, symmetrical. GI: Abdomen is non-distended, Reports nausea. Vital Signs: 00:34 Weight 58.06 kg; Height 5 ft. 4 in. (162.56 cm); Pain 8/10; kd3 00:40 BP 145 / 82; Pulse 72; Resp 16; Temp 98.5(O); Pulse Ox 100% on R/A; kd3 01:19 BP 141 / 91; Pulse 93; Resp 19; Pulse Ox 100% on R/A; kd3 02:06 BP 128 / 85; Pulse 84; Resp 17; Pulse Ox 100% ; kd3 03:07 BP 118 / 90; Pulse 74; Resp 19; Pulse Ox 99% on R/A; kd3 00:34 Body Mass Index 21.97 (58.06 kg, 162.56 cm) kd3 ED Course: 00:17 Patient arrived in ED. ag3 00:18 Chris Mercado PA is PHCP. cp 00:18 Levy Thurman MD is Attending Physician. cp 00:26 Sidra Colon, JABIER is Primary Nurse. kd3 00:31 Triage completed. kd3 00:34 Arm band placed on right wrist. Patient placed in an exam room, on a stretcher. kd3 00:36 Initial lab(s) drawn, by me, sent to lab. Inserted saline lock: 22 gauge in right ll3 antecubital area, using aseptic technique. Blood collected. 00:38 Patient has correct armband on for positive identification. Placed in gown. Bed in low kd3 position. Call light in reach. Side rails up X 1. Client placed on continuous cardiac and pulse oximetry monitoring. NIBP monitoring applied. 00:59 COVID-19/FLU A+B Sent. ll3 01:11 US Abdomen Limited In Process Unspecified. EDMS 01:15 XRAY Chest (1 view) In Process Unspecified. EDMS 02:09 CT Abd/Pelvis - IV Contrast Only In Process Unspecified. EDMS 03:54 No provider procedures requiring assistance completed. IV discontinued, intact, ll3 bleeding controlled, No redness/swelling at site. Pressure dressing applied. Administered Medications: 00:58 Drug: NS 0.9% 1000 ml Route: IV; Rate: 1 bolus; Site: right antecubital; ll3 01:43 Follow up: Response: No adverse reaction; IV Status: Completed infusion; IV Intake: ll3 1000ml 00:58 Drug: Pepcid (famotidine) 20 mg Route: IVP; Site: right antecubital; ll3 03:55 Follow up: Response: No adverse reaction ll3 00:58 Drug: Zofran (Ondansetron) 4 mg Route: IVP; Site: right antecubital; ll3 03:55 Follow up: Response: No adverse reaction; Marked relief of symptoms ll3 00:58 Drug: Dicyclomine 20 mg Route: IM; Site: right gluteus; ll3 03:55 Follow up: Response: No adverse reaction; Marked relief of symptoms ll3 Medication: 00:38 VIS not applicable for this client. kd3 Intake: 01:43 IV: 1000ml; Total: 1000ml. ll3 Outcome: 03:45 Discharge ordered by . cp 03:54 Discharged to home ambulatory, with friend. ll3 03:54 Condition: stable 03:54 Discharge instructions given to patient, friend, Instructed on discharge instructions, follow up and referral plans. medication usage, Demonstrated understanding of instructions, follow-up care, medications, Prescriptions given X 2. 03:56 Patient left the ED. ll3 Signatures: Dispatcher [employer] Chris Guevara PA PA cp Gomez, Alice ag3 Na Melgar RN RN ll3 Sidra Colon RN RN kd3 Corrections: (The following items were deleted from the chart) 00:31 00:26 Chief complaint: kd3 kd3
[2022-10-30 04:30] VITALS: TEMP 98.5
[2022-10-30 04:38] VITALS: BP 118/90; O2SAT 99
--- NOTE | 2022-10-30 07:35 | EKG ---
Test Date: 2022-10-30 Test Time: 01:12:22 Detective Bureau Chief: RENETTA MEASUREMENT RESULTS: Intervals: Rate: 86 MA: 154 QRSD: 72 QT: 366 QTc: 437 [place]: P: 150 MA: 154 QRS: 11 T: -23 INTERPRETIVE STATEMENTS: Unusual P axis, possible ectopic atrial rhythm Low voltage QRS Nonspecific T wave abnormality Abnormal ECG Compared to ECG 01/30/2021 03:23:43 Low QRS voltage now present T-wave abnormality now present Sinus rhythm no longer present Electronically Signed On 10-30-22 07:34:51 SPORTS DOCTOR by John Meza
--- NOTE | 2022-10-30 13:45 | RAD REPORT ---
EXAM DESCRIPTION: RAD - Chest Single View - 10/30/2022 1:13 am CLINICAL HISTORY: 47 years, Female, COUGH COMPARISON: None. FINDINGS: Single view of the chest was obtained portable. No prior films are available for compariso n. External EKG leads within the [id number] limits diagnosis. The cardiomediastinal silhouette dem onstrate to be unremarkable. The heart is not enlarged. The thoracic aorta is unremarkable. The pulmo nary vasculature is normal distribution. Costophrenic angles are sharp. No areas of consolidation o r masses are seen. The rest of the soft tissue and bony structures demonstrate to be unremarkable. IMPRESSION: NO ACUTE CARDIOPULMONARY DISEASE SEEN. Electronically signed by: Jacques Crystal MD 10/30/2022 1:27 AM WIRE BORDER ASSEMBLER Due to temporary technical issues with the PACS/Fluency reporting system, reports are being signed by the in house radiologists without review as a courtesy to insure prompt reporting. The interpreting radiologist is fully responsible for the content of the report.
--- NOTE | 2022-10-30 13:50 | RAD REPORT ---
EXAM DESCRIPTION: US - Abdomen Exam Limited - 10/30/2022 1:09 am CLINICAL HISTORY: 47 years Female EPIGASTRIC PAIN COMPARISON: None TECHNIQUE: Limited gallbladder ultrasound was performed. FINDINGS: Gallbladder is contracted, degrading evaluation. No gallstones seen. Negative sonographic Barlow sign. Gallbladder wall measures 2 mm. Common bile duct measures 3 mm. IMPRESSION: No sonographic evidence of cholelithiasis or acute cholecystitis. Electronically signed by: Elizabeth Barros MD 10/30/2022 1:22 AM KNIFE SETTER Due to temporary technical issues with the PACS/Fluency reporting system, reports are being signed by the in house radiologists without review as a courtesy to insure prompt reporting. The interpreting radiologist is fully responsible for the content of the report.
--- NOTE | 2022-10-30 14:21 | RAD REPORT ---
EXAM DESCRIPTION: CT - Abdomen Pelvis W Contrast - 10/30/2022 6:58 am CLINICAL HISTORY: 47 years Female epigastric/mid back pain TECHNIQUE: Axial CT imaging of the abdomen and pelvis was performed following the administration of intravenous contrast.. Oral contrast was not administered. Sagittal and coronal reconstructed image s were then performed. The CT study is performed according to ALARA (as low as reasonably achievabl e) or ALARA/IMAGE GENTLY, with automatic adjustment of mA and/or kV according to patient size. Performed on: 10/30/2022 at 2:07 AM. COMPARISON: 04/25/2021 and 04/17/2021 FINDINGS: Lung bases: The lung bases are grossly clear. There is a stable calcified granuloma in the right lower lobe measuring approximately 6 mm in diameter. Liver: The liver is normal in size and configuration. No focal hepatic abnormalities are identified. Liver attenuation is within normal limits. The hepatic and portal veins are patent. Spleen: The spleen is normal in size, configuration and attenuation. Gallbladder and bile duct: The gallbladder is contracted. There is no biliary ductal dilatation. Pancreas: The pancreas is grossly normal in size and configuration. Adrenal Glands: The adrenal glands are normal in size and configuration. Kidneys: The kidneys are normal in size and configuration. There is no evidence of hydronephrosis. Th ere is no evidence of nephrolithiasis. No definite solid or cystic renal mass lesions are identified. Stomach: The stomach is grossly normal. There is no definite hiatal hernia. Bowel: The bowel gas pattern is non specific and non obstructive. Appendix: The appendix is normal. Free air: There is no evidence of free air. Free fluid: There is no evidence of free fluid. Vasculature: The aorta is normal in caliber and contour. The inferior vena cava is grossly unremarkab le. Lymphadenopathy: No pathologic lymphadenopathy is identified. Bladder: The bladder is well distended and smooth in contour. Reproductive: The uterus is grossly within normal limits. There is an approximately 1.2 cm focal area of decreased attenuation along the anterior uterine fundus to the right of midline likely representi ng a myometrial fibroid. Bones: No acute osseous abnormalities are identified. Soft tissues: No acute soft tissue abnormalities are identified. IMPRESSION: 1. No evidence of acute intra-abdominal or intrapelvic pathology. There are no finding s on this examination to explain the patient's reported clinical symptoms. 2. Stable 6 mm calcified granuloma in the right lower lobe. 3. Suspect small myometrial fibroid along the anterior uterine fundus to the right of midline. Electronically signed by: Mary Santiago DO 10/30/2022 2:35 AM BUSINESS LIAISON MANAGER Due to temporary technical issues with the PACS/Fluency reporting system, reports are being signed by the in house radiologists without review as a courtesy to insure prompt reporting. The interpreting radiologist is fully responsible for the content of the report.
== END 2022-10-30 03:56 | disposition home or self-care (01) ==
LOC: ER 00:13
DX: R10.13 Epigastric pain (principal); M54.9 Dorsalgia, unspecified; R11.0 Nausea; R05.9 Cough, unspecified; Z20.822 Contact with and (suspected) exposure to COVID-19; Z88.0 Allergy status to penicillin; Z88.1 Allergy status to other antibiotic agents; Z88.5 Allergy status to narcotic agent; Z88.8 Allergy status to other drugs, medicaments and biological substances
CPT/HCPCS: 93005; 85025; 36415; 81025; 84484; 83690; 80053; 0240U; 74177; 71045; 76705; Q9967; J0500; J7030; J2405; 81003; 81015

== ENCOUNTER → 2023-12-29 | Emergency (ER) | payer SELFPAY ==
[~2023-12-29] MED LIST: HYDROCODONE/APAP 5/325 MG TAB ONE; IBUPROFEN 200 MG TAB PO ONE
--- NOTE | 2023-12-29 22:05 | RAD REPORT ---
EXAM DESCRIPTION: RAD - Knee Right 3 View - 12/29/2023 9:08 pm CLINICAL HISTORY: PAIN COMPARISON: No comparisons TECHNIQUE: Right knee, 3 views. FINDINGS: No fracture, dislocation or periosteal reaction.No joint effusion seen. No joint space maxi rowing. No soft tissue abnormality. Clinical concerns for internal derangement or occult bony injury could be further assessed with MR im aging. IMPRESSION: Negative right knee.
--- NOTE | 2023-12-29 22:07 | RAD REPORT ---
EXAM DESCRIPTION: RAD - Tib Fib Left - 12/29/2023 9:08 pm CLINICAL HISTORY: PAIN COMPARISON: No comparisons TECHNIQUE: Left tibia and fibula, 2 views. FINDINGS: No fracture is identified. There is no dislocation or periosteal reaction noted. No foreign body or other soft tissue abnormalit y. IMPRESSION: Negative left tibia & fibula examination.
--- NOTE | 2023-12-29 22:16 | RAD REPORT ---
EXAM DESCRIPTION: RAD - Foot Left 3 View - 12/29/2023 9:08 pm CLINICAL HISTORY: PAIN COMPARISON: Foot Left 3 View dated 05/16/2012; FOOT AP LAT dated 07/08/2011 TECHNIQUE: Left foot, 3 views. FINDINGS: No fracture, dislocation or periosteal reaction. No air or foreign body in the soft tissues. IMPRESSION: Negative left foot radiographs.
--- NOTE | 2023-12-29 22:22 | EDPHYS ---
Physician Documentation [facility] Name: Michelle Munguia Age: 48 yrs Sex: Female : 1975 Arrival Date: 12/29/2023 Time: 18:53 Bed 11 Private MD: ED Physician Tiffanie Lou HPI: 12/28 23:24 This 48 yrs old Female presents to ER via Ambulatory with complaints of Fall kb Injury - Thru House FLoor. 23:24 Pt is a 48 year old female who presents for left lower leg pain from knee to foot and kb right knee pain after falling through her floor 9 days ago. States the pain isn't getting any better so she came to get it evaluated. Historical: - Allergies: 19:18 Morphine; hb 19:18 meperidine HCl; hb 19:18 PENICILLINS; hb 19:18 Phenergan; hb 19:18 Demerol; hb - PMHx: 19:18 Asthma; Seizures; hb - Immunization history:: Adult Immunizations up to date. - Social history:: Smoking status: Patient denies any tobacco usage or history of. ROS: 23:22 Constitutional: As per HPI kb Exam: 23:23 Constitutional: This is a well developed, well nourished patient who is awake, alert, kb and in no acute distress. Head/Face: Normocephalic, atraumatic. ENT: Moist Mucous membranes Cardiovascular: Regular rate Respiratory: Respirations even and unlabored. No increased work of breathing. Talking in full sentences Abdomen/GI: Soft, non-tender. No distention Neuro: Awake and alert, GCS 15, oriented to person, place, time, and situation. Moves all extremities. Normal gait. 23:23 Musculoskeletal/extremity: Extremities: grossly normal except: noted in the right knee, left knee, left chaney and dorsum of left foot: ecchymosis, pain, tenderness, ROM: intact in all extremities, Circulation is intact in all extremities. Sensation intact. Weight bearing: able to fully bear weight, Vital Signs: 19:16 BP 144 / 80; Pulse 95; Resp 18; Temp 98.3; Pulse Ox 100% on R/A; Weight 58.06 kg; hb Height 5 ft. 4 in. ; Pain 9/10; 19:16 Body Mass Index 21.97 (58.06 kg, 162.56 cm) hb 19:16 Pain Scale: Adult hb MDM: 18:57 Patient medically screened. kb 23:23 Differential diagnosis: contusion, fracture, sprain, strain. Data reviewed: vital kb signs, nurses notes. Counseling: I had a detailed discussion with the patient and/or guardian regarding the historical points, exam findings, and any diagnostic results supporting the discharge/admit diagnosis, radiology results, the need for outpatient follow up, a family practitioner, to return to the emergency department if symptoms worsen or persist or if there are any questions or concerns that arise at home. 12/28 19:55 Order name: Knee Right 3 View XRAY; Complete Time: 22:09 kb 12/28 19:55 Order name: Tib Fib Left XRAY; Complete Time: 22:09 kb 12/28 19:55 Order name: Foot Left 3 View XRAY; Complete Time: 22:17 kb Administered Medications: 22:30 Drug: HYDROcodone-acetaminophen PO 5 mg-325 mg 1 tabs PO once Route: PO; jb4 22:30 Drug: Ibuprofen PO 600 mg PO once Route: PO; jb4 Disposition Summary: 12/29/23 22:21 Discharge Ordered Notes: Location: Home kb Condition: Stable kb Diagnosis - Pain in left lower leg kb - Pain in right knee kb Followup: kb - With: Emergency Department - When: As needed - Reason: Worsening of condition Followup: kb - With: Private Physician - When: 2 - 3 days - Reason: Recheck today's complaints, Continuance of care, Re-evaluation by your physician Discharge Instructions: - Discharge Summary Sheet kb - Musculoskeletal Pain kb Forms: - Medication Reconciliation Form kb - Thank You Letter kb - Antibiotic Education kb - Prescription Opioid Use kb - Patient Portal Instructions kb - Leadership Thank You Letter kb Prescriptions: - Diclofenac Sodium 75 mg Oral tablet, delayed release (enteric coated) - take 1 tablet ORAL route 2 times per day As needed; 30 tablet; Refills: 0, kb Product Selection Permitted - orphenadrine citrate 100 mg Oral Tablet Sustained Release - take 1 tablet ORAL route 2 times per day As needed; 20 tablet; Refills: 0, kb Product Selection Permitted Signatures: Dispatcher [employer] Khushboo Ho, Harper Barcenas RN RN Harsha Rouse RN RN jb4
--- NOTE | 2023-12-29 22:22 | ER ---
Nurse's Notes [facility] Name: Michelle Munguia Age: 48 yrs Sex: Female : 1975 Arrival Date: 12/29/2023 Time: 18:53 Bed 11 Private MD: Diagnosis: Pain in left lower leg;Pain in right knee Presentation: 12/28 19:16 Chief complaint: Left leg went through wooden floor 9 days ago, c/o pain in left groin, hb left knee, left ankle, left foot, and right knee 9/10. Coronavirus screen: At this time, the client does not indicate any symptoms associated with coronavirus-19. Ebola Screen: No symptoms or risks identified at this time. Initial Sepsis Screen: Does the patient meet any 2 criteria? No. Patient's initial sepsis screen is negative. Does the patient have a suspected source of infection? No. Patient's initial sepsis screen is negative. Risk Assessment: Do you want to hurt yourself or someone else? Patient reports no desire to harm self or others. Onset of symptoms was December 20, 2023. 19:16 Method Of Arrival: Ambulatory 19:16 Acuity: XAVIER 4 hb Triage Assessment: 19:19 General: Appears in no apparent distress. uncomfortable, Behavior is calm, cooperative. hb Pain: Pain currently is 9 out of 10 on a pain scale. Neuro: Level of Consciousness is awake, alert, obeys commands, Oriented to person, place, time, situation. Cardiovascular: Patient's skin is warm and dry. Respiratory: Respiratory effort is even, unlabored, Respiratory pattern is regular, symmetrical. Musculoskeletal: Reports left groin, left knee, left ankle, left foot, and right knee pain 9/10. Historical: - Allergies: 19:18 Morphine; hb 19:18 meperidine HCl; hb 19:18 PENICILLINS; hb 19:18 Phenergan; hb 19:18 Demerol; hb - PMHx: 19:18 Asthma; Seizures; hb - Immunization history:: Adult Immunizations up to date. - Social history:: Smoking status: Patient denies any tobacco usage or history of. Screenin:03 [facility] ED Fall Risk Assessment (Adult) History of falling in the last 3 months, jb4 including since admission No falls in past 3 months (0 pts) Confusion or Disorientation No (0 pts). Abuse screen: Denies threats or abuse. Nutritional screening: No deficits noted. Tuberculosis screening: No symptoms or risk factors identified. Assessment: 20:43 General: Appears in no apparent distress. uncomfortable, Behavior is calm, cooperative, jb4 appropriate for age. Pain: Complains of pain in right knee and left leg Pain does not radiate. Pain currently is 9 out of 10 on a pain scale. Neuro: Level of Consciousness is awake, alert, obeys commands, Oriented to person, place, time, situation. Cardiovascular: Patient's skin is warm and dry. Respiratory: Airway is patent Respiratory effort is even, unlabored, Respiratory pattern is regular, symmetrical. GI: No signs and/or symptoms were reported involving the gastrointestinal system. : No signs and/or symptoms were reported regarding the genitourinary system. EENT: No signs and/or symptoms were reported regarding the EENT system. Derm: Skin is intact, Skin is pink, warm \T\ dry. Musculoskeletal: Circulation, motion, and sensation intact. Range of motion: intact in all extremities. 22:03 Reassessment: Patient appears in no apparent distress at this time. Patient and/or jb4 family updated on plan of care and expected duration. Pain level reassessed. Patient is alert, oriented x 3, equal unlabored respirations, skin warm/dry/pink. Vital Signs: 19:16 BP 144 / 80; Pulse 95; Resp 18; Temp 98.3; Pulse Ox 100% on R/A; Weight 58.06 kg; hb Height 5 ft. 4 in. ; Pain 9/10; 19:16 Body Mass Index 21.97 (58.06 kg, 162.56 cm) hb 19:16 Pain Scale: Adult hb ED Course: 18:56 Patient arrived in ED. mg5 18:57 Khushboo Wesley [facility] kb 18:57 Tiffanie Luo MD is Attending Physician. kb 19:18 Triage completed. hb 19:19 Arm band placed on. hb 21:10 Knee Right 3 View XRAY In Process Unspecified. EDMS 21:10 Tib Fib Left XRAY In Process Unspecified. EDMS 21:10 Foot Left 3 View XRAY In Process Unspecified. EDMS 22:03 Patient has correct armband on for positive identification. Bed in low position. Call jb4 light in reach. Side rails up X 1. Provided Education on: Plan of care. 22:31 No provider procedures requiring assistance completed. Patient did not have IV access jb4 during this emergency room visit. Administered Medications: 22:30 Drug: HYDROcodone-acetaminophen PO 5 mg-325 mg 1 tabs PO once Route: PO; jb4 22:30 Drug: Ibuprofen PO 600 mg PO once Route: PO; jb4 Medication: 22:03 VIS not applicable for this client. jb4 Outcome: : Discharge ordered by . maria esther 22:31 Discharged to home ambulatory, jb4 22: Condition: stable 22:31 Discharge instructions given to patient, Instructed on discharge instructions, follow up and referral plans. no drinking with medication, no driving heavy equipment, medication usage, Demonstrated understanding of instructions, follow-up care, medications, Prescriptions given X 2, :31 Patient left the ED. jb4 Signatures: Dispatcher [employer] EDMS Khushboo Wesley, RACHANA WELCH-Harper Geiger RN RN Harsha Dudley RN RN jb4 Corina Mueller mg5
[2023-12-29 23:05] VITALS: BP 144/80; TEMP 98.3; O2SAT 100
== END ==
LOC: ER 18:53
DX: M79.662 Pain in left lower leg (principal); M25.561 Pain in right knee
CPT/HCPCS: 99283

== ENCOUNTER 2024-03-08 13:34 | Emergency (ER) | payer BC, SELFPAY ==
[2024-03-08] MEDS ORDERED: LIDOCAINE 1% MPF 5 ML VIAL ONE (13:45)
[2024-03-08] MEDS ORDERED: TDAP (DIPHTH,PERTUSS(ACELL),TET VAC) 0.5 ML VIAL IMVAC ONE (13:46)
--- NOTE | 2024-03-08 15:33 | ER ---
Nurse's Notes [facility] Name: Michelle Munguia Age: 48 yrs Sex: Female : 1975 Arrival Date: 03/08/2024 Time: 13:34 Bed 5 Private MD: Diagnosis: Laceration without foreign body of right upper arm, initial encounter Presentation: 03/08 13:42 Chief complaint: Patient states: pt cut her right arm on a piece of metal while as6 fishing. Coronavirus screen: At this time, the client does not indicate any symptoms associated with coronavirus-19. Ebola Screen: No symptoms or risks identified at this time. Complicating Factors: There are no complicating factors for this patient. Initial Sepsis Screen: Does the patient meet any 2 criteria? No. Patient's initial sepsis screen is negative. Does the patient have a suspected source of infection? No. Patient's initial sepsis screen is negative. Risk Assessment: Do you want to hurt yourself or someone else? Patient reports no desire to harm self or others. Onset of symptoms was March 08, 2024. 13:42 Acuity: XAVIER 4 as6 13:42 Method Of Arrival: Ambulatory as6 Historical: - Allergies: 13:42 meperidine HCl; as6 13:42 Phenergan; as6 13:42 PENICILLINS; as6 13:42 Morphine; as6 13:42 Demerol; as6 - PMHx: 13:42 Asthma; Seizures; as6 - Immunization history:: Last tetanus immunization: unknown. - Infectious Disease History:: Denies. - Social history:: Smoking status: Patient denies any tobacco usage or history of. Screenin:58 [facility] ED Fall Risk Assessment (Adult) History of falling in the last 3 months, kc6 including since admission No falls in past 3 months (0 pts) Confusion or Disorientation No (0 pts) Intoxicated or Sedated No (0 pts) Impaired Gait No (0 pts) Mobility Assist Device Used No (0 pt) Altered Elimination No (0 pt) Score/Fall Risk Level 0 - 2 = Low Risk. Abuse screen: Denies threats or abuse. Denies injuries from another. Nutritional screening: No deficits noted. Tuberculosis screening: No symptoms or risk factors identified. Assessment: 13:59 General: Appears in no apparent distress. comfortable, well groomed, well developed, kc6 Behavior is cooperative, appropriate for age, anxious. Pain: Complains of pain in right bicep. Neuro: Level of Consciousness is awake, alert, obeys commands, Oriented to person, place, time, situation, Appropriate for age. Cardiovascular: Capillary refill < 3 seconds. Respiratory: Airway is patent Trachea midline Respiratory effort is even, unlabored, Respiratory pattern is regular, symmetrical. GI: No signs and/or symptoms were reported involving the gastrointestinal system. : No signs and/or symptoms were reported regarding the genitourinary system. EENT: No signs and/or symptoms were reported regarding the EENT system. Derm: Skin is healthy with good turgor, Skin is pink, warm \T\ dry. Musculoskeletal: No signs and/or symptoms reported regarding the musculoskeletal system. Circulation, motion, and sensation intact. Capillary refill < 3 seconds, Range of motion: intact in all extremities. Injury Description: Laceration sustained to right bicep is clean, superficial, not bleeding, was sustained 30-60 minutes ago. is bleeding no active bleeding noted. 15:49 Reassessment: Patient appears in no apparent distress at this time. No changes from ld1 previously documented assessment. Patient and/or family updated on plan of care and expected duration. Pain level reassessed. Vital Signs: 13:41 BP 145 / 86; Pulse 100; Resp 20; Temp 98.4; Pulse Ox 99% ; Weight 63.5 kg; Height 5 ft. as6 4 in. ; Pain 9/10; 13:41 Body Mass Index 24.03 (63.50 kg, 162.56 cm) as6 13:41 Pain Scale: Adult as6 ED Course: 13:35 Patient arrived in ED. im 13:41 Khushboo Wesley FNP-C is PHCP. kb 13:41 Gilbert Tirado MD is Attending Physician. kb 13:41 Arm band placed on. as6 13:43 Triage completed. as6 13:51 Ronda Colon, JABIER is Primary Nurse. kc6 13:59 Patient has correct armband on for positive identification. Bed in low position. Call kc6 light in reach. Side rails up X 1. Adult w/ patient. Client placed on continuous cardiac and pulse oximetry monitoring. NIBP monitoring applied. 15:49 Assist provider with laceration repair on right arm and right bicep using sutures. Set ld1 up tray. Performed by Ronda Colon RN Patient tolerated well. Patient did not have IV access during this emergency room visit. Administered Medications: 13:51 Drug: Boostrix Tdap IM 0.5 ml IM once; as a single dose Route: IM; Site: left deltoid; kc6 15:27 Drug: Lidocaine Infiltration (1 %) 1 vials 5 ml Infiltration once; to bedside {Note: kc6 RIGHT ARM.} Volume: 5 ml; Route: Infiltration; Medication: 15:50 VIS not applicable for this client. ld1 Outcome: 15:32 Discharge ordered by MD. mayo 15:49 Discharged to home ambulatory, ld1 15:49 Condition: stable 15:49 Discharge instructions given to patient, Instructed on discharge instructions, follow up and referral plans. Demonstrated understanding of instructions, follow-up care, Prescriptions given X 1, 15:53 Patient left the ED. ld1 Signatures: Khushboo Wesley, [employer]-C [employer]-CkLaura Moses RN RN ld1 Bao Modi RN RN as6 Ronda Colon RN RN kc6 Aria Elkins im
--- NOTE | 2024-03-08 15:33 | EDPHYS ---
Physician Documentation [facility] Name: Michelle Munguia Age: 48 yrs Sex: Female : 1975 Arrival Date: 03/08/2024 Time: 13:34 Bed 5 Private MD: ED Physician Gilbert Tirado HPI: 03/08 23:31 This 48 yrs old Female presents to ER via Ambulatory with complaints of kb Laceration To Arm. 23:31 Patient is a 48-year-old female who presents for laceration to right upper arm that kb occurred just prior to arrival. States they were out fishing at the [place] and she accidentally cut her arm on a piece of metal. Denies any other injury.. Historical: - Allergies: 13:42 meperidine HCl; as6 13:42 Phenergan; as6 13:42 PENICILLINS; as6 13:42 Morphine; as6 13:42 Demerol; as6 - PMHx: 13:42 Asthma; Seizures; as6 - Immunization history:: Last tetanus immunization: unknown. - Infectious Disease History:: Denies. - Social history:: Smoking status: Patient denies any tobacco usage or history of. ROS: 23:31 Constitutional: As per HPI kb Exam: 23:31 Constitutional: This is a well developed, well nourished patient who is awake, alert, kb and in no acute distress. Head/Face: Normocephalic, atraumatic. ENT: Moist Mucous membranes Cardiovascular: Regular rate Respiratory: Respirations even and unlabored. No increased work of breathing. Talking in full sentences Abdomen/GI: Soft, non-tender. No distention MS/ Extremity: Pulses equal, no cyanosis. Neurovascular intact. Full, normal range of motion. Neuro: Awake and alert, GCS 15, oriented to person, place, time, and situation. Moves all extremities. Normal gait. 23:31 Skin: injury, laceration(s), the wound is approximately 4 cm(s), of the right upper arm, that can be described as clean, no foreign body, linear, without bleeding, Vital Signs: 13:41 BP 145 / 86; Pulse 100; Resp 20; Temp 98.4; Pulse Ox 99% ; Weight 63.5 kg; Height 5 ft. as6 4 in. ; Pain 9/10; 13:41 Body Mass Index 24.03 (63.50 kg, 162.56 cm) as6 13:41 Pain Scale: Adult as6 Laceration: 15:31 Wound Repair of 4cm ( 1.6in ) subcutaneous laceration to right upper arm. Linear kb shaped.. Distal neuro/vascular/tendon intact. Anesthesia: Wound infiltrated with 3 mls of 1% lidocaine. Wound prep: Extensive cleansing with hibiclenz by me, Wound irrigation with saline by me. Skin closed with 5 5-0 Prolene using simple sutures and sterile technique. Patient tolerated well. MDM: 13:41 Patient medically screened. kb 15:31 Differential diagnosis: superficial laceration, tendon injury, vascular injury. Data kb reviewed: vital signs, nurses notes. Counseling: I had a detailed discussion with the patient and/or guardian regarding the historical points, exam findings, and any diagnostic results supporting the discharge/admit diagnosis, the need for outpatient follow up, a family practitioner, to return to the emergency department if symptoms worsen or persist or if there are any questions or concerns that arise at home. 03/08 13:42 Order name: Dressing - Wound; Complete Time: 13:51 kb 03/08 13:42 Order name: Gloves, Sterile; Complete Time: 13:51 kb 03/08 13:42 Order name: Prolene, Sutures; Complete Time: 13:51 kb 03/08 13:42 Order name: Setup Suture Tray; Complete Time: 13:51 kb Administered Medications: 13:51 Drug: Boostrix Tdap IM 0.5 ml IM once; as a single dose Route: IM; Site: left deltoid; kc6 15:27 Drug: Lidocaine Infiltration (1 %) 1 vials 5 ml Infiltration once; to bedside {Note: kc6 RIGHT ARM.} Volume: 5 ml; Route: Infiltration; Disposition: 17:35 Co-signature as Attending Physician, Gilbert Tirado MD I reviewed the patient's care rt provided by the Advanced Practice Provider and agree with the diagnosis and treatment plan. Disposition Summary: 03/08/24 15:32 Discharge Ordered Notes: Location: Home kb Condition: Stable kb Diagnosis - Laceration without foreign body of right upper arm, initial encounter kb Followup: kb - With: Emergency Department - When: As needed - Reason: Worsening of condition Followup: kb - With: Private Physician - When: 2 - 3 days - Reason: Recheck today's complaints, Continuance of care, Re-evaluation by your physician Discharge Instructions: - Discharge Summary Sheet kb - Laceration Care, Adult, [id number] kb Forms: - Medication Reconciliation Form kb - Antibiotic Education kb - Prescription Opioid Use kb - Patient Portal Instructions kb - Leadership Thank You Letter kb Prescriptions: - Doxycycline Hyclate 100 mg Oral Tablet - take 1 tablet ORAL route every 12 hours; 20 tablet; Refills: 0, Product kb Selection Permitted Signatures: Khushboo Wesley FNP-C FNP-Ckb Slawson, Ashby RN RN as6 Ronda Colon RN RN kc6 Gilbert Tirado MD MD rt
[2024-03-08 16:11] VITALS: BP 145/86; TEMP 98.4; O2SAT 99
== END 2024-03-08 15:53 | disposition home or self-care (01) ==
LOC: ER 13:34
PROC: 0HQBXZZ Repair Right Upper Arm Skin, External Approach (ICD-10-PCS; principal; 2024-03-08)
DX: S41.111A Laceration without foreign body of right upper arm, initial encounter (principal)
CPT/HCPCS: 96372; 99284; 12002; J2001

== ENCOUNTER 2024-07-23 06:28 | Emergency (ER) | payer BC ==
[2024-07-23] MEDS ORDERED: METOCLOPRAMIDE 10 MG/2mL INJ ONE (07:25)
[2024-07-23] MEDS ORDERED: NA CHLORIDE 0.9% 1,000 ML ONE (07:25)
[2024-07-23] MEDS ORDERED: KETOROLAC 30 MG/ML INJ ONE (07:25)
[2024-07-23] MEDS ORDERED: DIPHENHYDRAMINE 50 MG/ML VIAL ONE (07:25)
[2024-07-23 07:44] LABS: Specific Gravity 1.016 (1.005-1.030); Sqamous Epithelial <5 /HPF (None Seen); Transitional Epithelial <5 /HPF (None Seen); Urine Bacteria >50 /HPF (<20); Urine Bilirubin NEGATIVE (Negative); Urine Blood 2+ (Negative); Urine Clarity Extremely Turbid (Clear); Urine Color Yellow (Yellow); Urine Culture Reflex Order REFLEXED; Urine Glucose NEGATIVE (Negative); Urine Ketones NEGATIVE (Negative); Urine Micro Reflex YN NO BILL MICROSCOPIC; Urine Mucus 2+ /HPF (None Seen); Urine Nitrite 2+ (Negative); Urine Protein TRACE (Negative); Urine RBC 21-50 /HPF (None Seen); Urine Urobilinogen Normal (Normal); Urine WBC >50 /HPF (<5); Urine WBC Clump Rare /HPF (None Seen); Urine pH 5.5 (5.0-7.0)
[2024-07-23] MEDS ORDERED: PHENAZOPYRIDINE 100MG TAB PO ONE (08:01)
[2024-07-23] MEDS ORDERED: CEPHALEXIN 250 MG CAP ONE (08:01)
--- NOTE | 2024-07-23 08:07 | ER ---
Nurse's Notes [facility] Name: Michelle Munguia Age: 49 yrs Sex: Female : 1975 Arrival Date: 07/23/2024 Time: 06:28 Bed 6 Private MD: Diagnosis: UTI/ Urinary tract infection, site not specified;Cystitis, acute migraine headache Presentation: 07/23 07:05 Chief complaint: Patient states: reports frontal migraine that is described as pressure aa5 since Saturday and burning with urination x 1 week ago. Coronavirus screen: At this time, the client does not indicate any symptoms associated with coronavirus-19. Ebola Screen: Patient denies travel to an Ebola-affected area in the 21 days before illness onset. Initial Sepsis Screen: Does the patient meet any 2 criteria? Yes Does the patient have a suspected source of infection? No. Patient's initial sepsis screen is negative. Risk Assessment: Do you want to hurt yourself or someone else? Patient reports no desire to harm self or others. Onset of symptoms was July 18, 2024. 07:05 Acuity: XAVIER 3 aa5 07:05 Method Of Arrival: Ambulatory aa5 Historical: - Allergies: 07:05 Demerol; aa5 07:05 meperidine HCl; aa5 07:05 Morphine; aa5 07:05 PENICILLINS; aa5 07:05 Phenergan; aa5 - PMHx: 07:05 Asthma; Seizures; aa5 07:21 Migraine; aa5 - Immunization history:: Adult Immunizations unknown. - Infectious Disease History:: Denies. - Family history:: not pertinent. - Social history:: Smoking status: Patient denies any tobacco usage or history of. Screenin:42 [facility] ED Fall Risk Assessment (Adult) History of falling in the last 3 months, ph including since admission No falls in past 3 months (0 pts) Confusion or Disorientation No (0 pts) Intoxicated or Sedated No (0 pts) Impaired Gait No (0 pts) Mobility Assist Device Used No (0 pt) Altered Elimination No (0 pt) Score/Fall Risk Level 0 - 2 = Low Risk Oriented to surroundings, Maintained a safe environment, Hourly rounding (assess needs \T\ fall precautionary measures) done. Abuse screen: Denies threats or abuse. Denies injuries from another. Nutritional screening: No deficits noted. Tuberculosis screening: No symptoms or risk factors identified. Assessment: 07:05 General: Appears uncomfortable, Behavior is calm, cooperative. Pain: Complains of pain aa5 in forehead, right eye and left eye Pain currently is 9 out of 10 on a pain scale. Quality of pain is described as pressure, Pain began 07/18/2024 Is continuous. Neuro: Level of Consciousness is awake, alert, obeys commands, Oriented to person, place, time, situation. Cardiovascular: Patient's skin is warm and dry. Respiratory: Airway is patent Respiratory effort is even, unlabored, Respiratory pattern is regular, symmetrical. GI: No signs and/or symptoms were reported involving the gastrointestinal system. : Reports burning with urination. EENT: No signs and/or symptoms were reported regarding the EENT system. Derm: Skin is pink, warm \T\ dry. Musculoskeletal: Range of motion: intact in all extremities. 07:30 Reassessment: Patient is alert, oriented x 3, equal unlabored respirations, skin aa5 warm/dry/pink. 08:00 Reassessment: Patient is alert, oriented x 3, equal unlabored respirations, skin aa5 warm/dry/pink. Vital Signs: 07:05 BP 133 / 85; Pulse 60; Resp 16 S; Temp 97.8(TE); Pulse Ox 100% on R/A; Weight 54.43 kg aa5 (R); Height 5 ft. 4 in. (R); 08:41 BP 133 / 88; Pulse 62; Resp 18; Temp 97.5; Pulse Ox 99% on R/A; ph 07:05 Body Mass Index 20.60 (54.43 kg, 162.56 cm) aa5 Rajendra Coma Score: 06:47 Eye Response: spontaneous(4). Motor Response: obeys commands(6). Verbal Response: sp4 oriented(5). Total: 15. 07:05 Eye Response: spontaneous(4). Motor Response: obeys commands(6). Verbal Response: sp4 oriented(5). Total: 15. ED Course: 06:31 Patient arrived in ED. jj6 06:37 Nikko Barnes MD is Attending Physician. sp4 07:05 Arm band placed on Patient placed in an exam room, on a stretcher. aa5 07:19 Lynch, Leeanne, RN is Primary Nurse. aa5 07:19 Inserted saline lock: 22 gauge in right wrist, using aseptic technique. Flushed with 10 aa5 mL NS. 07:20 Urine collected: clean catch specimen, sent to lab. aa5 07:21 Triage completed. aa5 08:42 Patient has correct armband on for positive identification. Bed in low position. Call ph light in reach. Side rails up X 1. Pulse ox on. NIBP on. Door closed. Noise minimized. Warm blanket given. 08:43 No provider procedures requiring assistance completed. IV discontinued, intact, ph bleeding controlled, No redness/swelling at site. Pressure dressing applied. Administered Medications: 07:30 Drug: Ketorolac IVP 30 mg IVP once Route: IVP; Site: right wrist; aa5 08:41 Follow up: Response: No adverse reaction ph 07:30 Drug: metoCLOPramide IVP 10 mg IVP once; over 1 to 2 minutes Route: IVP; Site: right aa5 wrist; 08:41 Follow up: Response: No adverse reaction ph 07:31 Drug: NS 0.9% IV 1000 ml IV at 1 bolus Per protocol; 1000 mL bolus Route: IV; Rate: 1 aa5 bolus; Site: right wrist; 08:41 Follow up: Response: No adverse reaction; IV Status: Completed infusion; IV Intake: ph 1000ml 07:31 Drug: diphenhydrAMINE IVP 25 mg IVP once Route: IVP; Site: right wrist; aa5 08:41 Follow up: Response: No adverse reaction ph 08:36 Drug: Cephalexin PO 500 mg PO once Route: PO; ph 08:41 Follow up: Response: No adverse reaction ph 08:36 Drug: Phenazopyridine PO 200 mg PO once Route: PO; ph 08:41 Follow up: Response: No adverse reaction ph Medication: 08:42 VIS not applicable for this client. ph Intake: 08:41 IV: 1000ml; Total: 1000ml. ph Outcome: 08:07 Discharge ordered by MD. cuevas 08:43 Discharged to home ambulatory, ph 08:43 Condition: good 08:43 Discharge instructions given to patient, Instructed on discharge instructions, follow up and referral plans. medication usage, Demonstrated understanding of instructions, follow-up care, medications, Prescriptions given X 3, 08:43 Patient left the ED. ph Signatures: Leeanne Lynch RN RN aa5 Sakshi Alberto RN RN ph Mariam Sewell jj6 Nikko Barnes MD MD sp4 Corrections: (The following items were deleted from the chart) 07:31 07:05 Chief complaint: Patient states: reports frontal migraine that is described as aa5 pressure. aa5 10:33 07:05 Onset of symptoms was July 23, 2024 aa5 aa5
--- NOTE | 2024-07-23 08:07 | EDPHYS ---
Physician Documentation [facility] Name: Michelle Munguia Age: 49 yrs Sex: Female : 1975 Arrival Date: 07/23/2024 Time: 06:28 Bed 6 Private MD: ED Physician Nikko Barnes HPI: 07/23 06:37 This 49 yrs old Female presents to ER via Unassigned with complaints of sp4 Headache, Urinary Retention. 06:47 49-year-old female presents with complaint of urinary retention.. sp4 Historical: - Allergies: 07:05 Demerol; aa5 07:05 meperidine HCl; aa5 07:05 Morphine; aa5 07:05 PENICILLINS; aa5 07:05 Phenergan; aa5 - PMHx: 07:05 Asthma; Seizures; aa5 07:21 Migraine; aa5 - Immunization history:: Adult Immunizations unknown. - Infectious Disease History:: Denies. - Family history:: not pertinent. - Social history:: Smoking status: Patient denies any tobacco usage or history of. ROS: 06:47 Constitutional: Negative for fever, chills, and weight loss, positive for complaint of sp4 urinary retention 06:47 All other systems are negative, Exam: 06:47 Constitutional: This is a well developed, well nourished patient who is awake, alert, sp4 and in no acute distress. Head/Face: Normocephalic, atraumatic. Eyes: Pupils equal round and reactive to light, extra-ocular motions intact. Lids and lashes normal. Conjunctiva and sclera are not injected. Cornea within normal limits. Periorbital areas with no swelling, redness, or edema. ENT: Nares patent. No nasal discharge, no septal abnormalities noted. Tympanic membranes are normal and external auditory canals are clear. Oropharynx with no redness, swelling, or masses, exudates, or evidence of obstruction, uvula midline. Mucous membranes moist. Neck: Trachea midline, no thyromegaly or masses palpated, and no cervical lymphadenopathy. Supple, full range of motion without nuchal rigidity, or vertebral point tenderness. Chest/axilla: Normal chest wall appearance and motion. Nontender with no deformity. No lesions are appreciated. Cardiovascular: Regular rate and rhythm with a normal S1 and S2. No gallops, murmurs, or rubs. Normal PMI, no JVD. No pulse deficits. Respiratory: Lungs have equal breath sounds bilaterally, clear to auscultation and percussion. No rales, rhonchi or wheezes noted. No increased work of breathing, no retractions or nasal flaring. Abdomen/GI: Soft, with normal bowel sounds. No distension or tympany. No guarding or rebound. No evidence of tenderness throughout. Back: No spinal tenderness. No costovertebral tenderness. Skin: Warm, dry with normal turgor. Normal color with no rashes, no lesions, and no evidence of cellulitis. MS/ Extremity: Pulses equal, no cyanosis. Neurovascular intact. Full, normal range of motion. Neuro: Awake and alert, GCS 15, oriented to person, place, time, and situation. Cranial nerves II-XII grossly intact. Motor strength 5/5 in all extremities. Sensory grossly intact. Psych: Awake, alert, with orientation to person, place and time. Behavior, mood, and affect are within normal limits Vital Signs: 07:05 BP 133 / 85; Pulse 60; Resp 16 S; Temp 97.8(TE); Pulse Ox 100% on R/A; Weight 54.43 kg aa5 (R); Height 5 ft. 4 in. (R); 08:41 BP 133 / 88; Pulse 62; Resp 18; Temp 97.5; Pulse Ox 99% on R/A; ph 07:05 Body Mass Index 20.60 (54.43 kg, 162.56 cm) aa5 Rajendra Coma Score: 06:47 Eye Response: spontaneous(4). Motor Response: obeys commands(6). Verbal Response: sp4 oriented(5). Total: 15. 07:05 Eye Response: spontaneous(4). Motor Response: obeys commands(6). Verbal Response: sp4 oriented(5). Total: 15. MDM: 06:38 Patient medically screened. sp4 07:05 Differential diagnosis: hypertensive headache, hypoglycemia, migraine, tension sp4 headache. Data reviewed: vital signs, nurses notes, lab test result(s). Transition of care: After a detail discussion of the patient's case, care is transferred to Chris Jain MD. 07/23 06:38 Order name: Urinalysis W/Microscopic; Complete Time: 08:05 sp4 07/23 07:48 Order name: Urine Culture EDMS 07/23 06:59 Order name: Saline Lock; Complete Time: 07:19 sp4 Administered Medications: 07:30 Drug: Ketorolac IVP 30 mg IVP once Route: IVP; Site: right wrist; aa5 08:41 Follow up: Response: No adverse reaction ph 07:30 Drug: metoCLOPramide IVP 10 mg IVP once; over 1 to 2 minutes Route: IVP; Site: right aa5 wrist; 08:41 Follow up: Response: No adverse reaction ph 07:31 Drug: NS 0.9% IV 1000 ml IV at 1 bolus Per protocol; 1000 mL bolus Route: IV; Rate: 1 aa5 bolus; Site: right wrist; 08:41 Follow up: Response: No adverse reaction; IV Status: Completed infusion; IV Intake: ph 1000ml 07:31 Drug: diphenhydrAMINE IVP 25 mg IVP once Route: IVP; Site: right wrist; aa5 08:41 Follow up: Response: No adverse reaction ph 08:36 Drug: Cephalexin PO 500 mg PO once Route: PO; ph 08:41 Follow up: Response: No adverse reaction ph 08:36 Drug: Phenazopyridine PO 200 mg PO once Route: PO; ph 08:41 Follow up: Response: No adverse reaction ph Disposition Summary: 07/23/24 08:07 Discharge Ordered Notes: Location: Home sp4 Problem: new sp4 Symptoms: have improved sp4 Condition: Stable sp4 Diagnosis - UTI/ Urinary tract infection, site not specified sp4 - Cystitis, acute migraine headache sp4 Followup: sp4 - With: Private Physician - When: 7 - 10 days - Reason: Recheck today's complaints Discharge Instructions: - Discharge Summary Sheet sp4 - Urinary Tract Infection, Adult sp4 Forms: - Work release form ph - Patient Portal Instructions sp4 Prescriptions: - Fioricet 50-300-40 mg Oral capsule - take 1 capsule ORAL route every 6 hours as needed for pain; 30 capsule; sp4 Refills: 0, Product Selection Permitted - phenazopyridine 200 mg Oral tablet - take 1 tablet ORAL route 3 times per day for 3 days; 9 tablet; Refills: 0, sp4 Product Selection Permitted - Cephalexin 500 mg Oral Capsule - take 1 capsule ORAL route every 12 hours for 10 days; 20 capsule; Refills: 0, sp4 Product Selection Permitted Signatures: Dispatcher [employer] Leeanne Hogue RN RN aa5 Sakshi Alberto RN RN ph Nikko Barnes MD MD sp4
[2024-07-23 08:58] VITALS: BP 133/88; TEMP 97.5; O2SAT 99
== END 2024-07-23 08:43 | disposition home or self-care (01) ==
LOC: ER 06:28
DX: N39.0 Urinary tract infection, site not specified (principal); G43.909 Migraine, unspecified, not intractable, without status migrainosus
CPT/HCPCS: 87088; 81001; 87086; 87077; 87186; J2765; J1200; J7030; 96361; 96374; 96375; 99284